=== PATIENT | male | born 1950 | race Caucasian/White ===

== ENCOUNTER 2016-08-01 20:10 | Observation (INO) ==
--- NOTE | 2016-08-01 21:24 | Emergency Department Note ---
START Narrative - START START: For this encounter, I have reviewed the resident, A[employer]LET[employer], or PA documentation, treatment plan, and medical decision making; and I have had face to face time with this patient. 65 yo male presents with concerns of chest pain. Hx of Afib on flecanide but no anticoagulation. +9/10 chest pain, seen [facility] earlier today for same pain. Pt offered admission but he declined. Records received from [facility] which show a negative initial troponin earlier in the day. EKG today shows normal sinus rhythm with a rate of 63 without evidence of STEMI. Patient states his pain returned after leaving [facility] while he was walking. Patient stated the pain was severe and much worse than his usual reflux. No chest pain during my evaluation emergency Department. Patient is comfortable with the plan for admission to the hospital for continuation of care.
[2016-08-01 21:30] LABS: INR 1.1; Prothrombin Time 11.7 Seconds (9.4-12.1)
[2016-08-01 21:33] LABS: Activated Partial Thrombo Time 34.8 Seconds (26.0-36.0)
[2016-08-01 21:39] LABS: BUN/Creatinine Ratio 13 (6-26); Blood Urea Nitrogen 14 mg/dL (8-26); Calcium 9.2 mg/dL (8.6-10.8); Carbon Dioxide 25 mEq/L (19-29); Chloride 107 mEq/L (98-109); Glucose 83 mg/dL (70-99); Osmolality,Calculated 288 (280-300); Potassium 4.2 mEq/L (3.5-4.5); Sodium 139 mEq/L (136-145); eGFR For African Americans > 60 (> 60); eGFR For Non-African Americans > 60 (> 60)
[2016-08-01 21:44] LABS: Basophils % 0.3 %; Eosinophils # 0.1 K/mcL (0.0-0.6); Eosinophils % 1.7 %; Hematocrit 41.6 % (37.5-50.1); Immature Granulocytes % 0.3 % (0-4); Lymphocytes # 2.1 K/mcL (0.6-4.6); Mean Corpuscular HGB Conc 33.7 g/dL (31.6-35.5); Mean Corpuscular Volume 95.2 fL (83.0-100.0); Mean Platelet Volume 10.4 fL (9.4-12.4); Monocytes # 0.5 K/mcL (0.0-1.3); Monocytes % 7.6 %; Neutrophils # 3.5 K/mcL (1.6-8.9); Platelet Count 147 K/mcL (140-400); Red Blood Count 4.37 M/mcL (4.19-5.50); Red Cell Distribution Width 12.8 % (11.5-14.5); Segmented Neutrophils % 56.1 %
[2016-08-01] MEDS ORDERED: Nitroglycerin 0.4 MG TAB.SUBL SL PRN (21:52)
--- NOTE | 2016-08-01 21:59 | Emergency Department Note ---
Disposition Clinical Impression: Chest pain Qualifiers: Chest pain type: unspecified Qualified Code(s): R07.9 - Chest pain, unspecified Disposition: Admitted As Inpatient Condition: Good Chest Pain HPI - General Chief Complaint: ED Chest Pain Stated Complaint: chest pain amy Time Seen by Provider: 08/01/16 21:09 Source: patient Limitations: no limitations - History of Present Illness HPI Narrative: 65-year-old male history of A. fib on antiarrhythmic who presents to the ER with a chief complaint of chest pain. Patient reports this started around 10 AM this morning while he was walking around. He reports a left-sided chest pain with pressure that was 9/10. Patient reports shortness of breath with it. As a history of MS DVT or PE. States he had a heart catheter and a stress test many years ago. He does follow with the general forecaster for his A. fib. He is not on anticoagulation. He reports that he was seen in another facility earlier today had a workup and decided not to be admitted. He reports he was given 2 sublingual nitroglycerin with improvement of his pain. He reports he went home and the pain never went away so he came back for evaluation. No other complaints. Pt complaint: chest pain Onset (ago): hour(s) Time: 10:00 Duration: constant Onset: during exertion Pain Location: left chest Severity: mild Severity scale (1-10): 4 Quality: heaviness Pain Radiation: none Improves with: nitroglycerin Worsens with: nothing Associated symptoms: Reports: dyspnea Treatments prior to arrival chest pain: none - Related Data On Oral Contraceptives: No Home Medications Medication Instructions Recorded Confirmed Atenolol [Tenormin] 12.5 mg PO DAILY 07/16/16 08/01/16 Docusate Sodium [Colace] 100 mg PO DAILY PRN 07/16/16 08/01/16 Flecainide Acetate 150 mg PO BID 07/16/16 08/01/16 Fluticasone Propionate Nasal 50 mcg NS DAILY PRN 07/16/16 08/01/16 [Flonase] Omeprazole 20 mg PO BID PRN 07/16/16 08/01/16 Montelukast [Singulair] 10 mg PO DAILY 08/01/16 08/01/16 Tamsulosin [Flomax] 0.4 mg PO DAILY 08/01/16 08/01/16 Allergies Allergy/AdvReac Type Severity Reaction Status Date / Time No Known Allergies Allergy Verified 07/16/16 11:49 All systems ED: reviewed and negative except as stated. Constitutional: Denies: fever Cardiovascular: Reports: chest pain. Denies: palpitations Respiratory: Reports: dyspnea. Denies: cough, wheezes Gastrointestinal: Denies: abdominal pain, nausea, vomiting, diarrhea Chest Pain PMH - Past Medical History Medical history: Reports: atrial fibrillation, GERD Surgical history: Reports: other Psychiatric history: Reports: no psych history - Social History Smoking Status: Never smoker Alcohol use: Reports: none Drug use: Reports: none Physical Exam - General Limitations: no limitations General appearance: alert, in no apparent distress - Head Head exam: atraumatic, normocephalic, normal inspection - Eye Eye exam: Present: normal appearance, EOMI - ENT ENT exam: normal exam - Neck Neck exam: Present: normal inspection - Chest Chest inspection: Present: normal inspection, symmetric chest wall rise - Respiratory Respiratory exam: Present: normal lung sounds bilaterally - Cardiovascular Cardiovascular exam: Present: regular rate, normal rhythm, normal heart sounds - Abdominal Exam Abdominal exam: Present: soft, Non-Tender. Absent: tenderness - Extremities Exam Extremities exam: Present: normal inspection, full ROM - Expanded Upper Extremity Exam Shoulder exam: Present: normal inspection, full ROM Arm exam: Present: normal inspection, full ROM Elbow exam: Present: normal inspection, full ROM Forearm/Wrist exam: Present: normal inspection, full ROM Hand exam: Present: normal inspection, full ROM - Expanded Lower Extremity Exam Hip/Pelvis exam: Present: normal inspection, full ROM Upper leg exam: Present: normal inspection, full ROM Knee exam: Present: normal inspection, full ROM Lower leg exam: Present: normal inspection, full ROM Ankle exam: Present: normal inspection, full ROM Foot/toe exam: Present: normal inspection, full ROM - Neurological Exam Neurological exam: Present: alert - Psychiatric Psychiatric exam: Present: normal affect, normal mood - Skin Skin exam: Present: warm, dry, intact, normal color Course Course Narrative: Patient seen and examined. Vital signs reviewed. We will get an EKG, chest x- ray as well as labs including troponin. Patient given aspirin and nitroglycerin. Vital Signs Temperature 98.2 F 08/01/16 20:22 Pulse Rate 71 08/01/16 20:22 Respiratory Rate 18 08/01/16 20:22 Blood Pressure 122/78 08/01/16 20:22 O2 Sat by Pulse Oximetry 94 L 08/01/16 20:22 Temperature 98.2 F 08/01/16 20:22 Pulse Rate 54 08/01/16 22:30 Respiratory Rate 16 08/01/16 23:11 Blood Pressure 105/69 08/01/16 23:11 O2 Sat by Pulse Oximetry 99 08/01/16 22:30 Oxygen Delivery Oxygen Delivery Nasal Cannula Chest Pain - MDM Narrative Medical decision making narrative: 65-year-old male presents to the ER due to chest pain. History of A. fib. He reports pain that started this morning. He was seen at another facility and worked up. He did not stay at that time because he was not familiar with that hospital. Patient re-presented here due to continuing pain. EKG is sinus rhythm. Chest x-ray unremarkable. Pain subsided with one sublingual nitroglycerin. Patient given aspirin at prior facility. Patient admitted to the hospitalist service for chest pain workup. - Lab Data Lab results reviewed: Yes I reviewed the patient's lab results. Result diagrams: 08/01/16 21:37 08/01/16 21:20 Lab Results 08/01/16 08/01/16 08/01/16 Range/Units 21:20 21:20 21:20 WBC (4.3-11.1) K/mcL RBC (4.19-5.50) M/mcL Hgb (12.9-16.9) g/dL Hct (37.5-50.1) % MCV (83.0-100.0) fL MCH (28.0-33.3) pg MCHC (31.6-35.5) g/dL RDW (11.5-14.5) % Plt Count (140-400) K/mcL MPV (9.4-12.4) fL Immature Gran % (0-4) % Seg Neutrophils % % Lymphocytes % % Monocytes % % Eosinophils % % Basophils % % Neutrophils # (1.6-8.9) K/mcL Lymphocytes # (0.6-4.6) K/mcL Monocytes # (0.0-1.3) K/mcL Eosinophils # (0.0-0.6) K/mcL Basophils # (0.0-0.2) K/mcL PT 11.7 (9.4-12.1) Seconds INR 1.1 APTT 34.8 (26.0-36.0) Seconds Sodium 139 (136-145) mEq/L Potassium 4.2 (3.5-4.5) mEq/L Chloride 107 (98-109) mEq/L Carbon Dioxide 25 (19-29) mEq/L BUN 14 (8-26) mg/dL Creatinine 1.11 (0.72-1.25) mg/dL Est GFR ( Amer) > 60 (> 60) Est GFR (Non-Af Amer) > 60 (> 60) BUN/Creatinine Ratio 13 (6-26) Glucose 83 (70-99) mg/dL Calculated Osmolality 288 (280-300) Calcium 9.2 (8.6-10.8) mg/dL Troponin I 0.00 (0-0.03) ng/mL 08/01/16 Range/Units 21:37 WBC 6.3 (4.3-11.1) K/mcL RBC 4.37 (4.19-5.50) M/mcL Hgb 14.0 (12.9-16.9) g/dL Hct 41.6 (37.5-50.1) % MCV 95.2 (83.0-100.0) fL MCH 32.0 (28.0-33.3) pg MCHC 33.7 (31.6-35.5) g/dL RDW 12.8 (11.5-14.5) % Plt Count 147 (140-400) K/mcL MPV 10.4 (9.4-12.4) fL Immature Gran % 0.3 (0-4) % Seg Neutrophils % 56.1 % Lymphocytes % 34.0 % Monocytes % 7.6 % Eosinophils % 1.7 % Basophils % 0.3 % Neutrophils # 3.5 (1.6-8.9) K/mcL Lymphocytes # 2.1 (0.6-4.6) K/mcL Monocytes # 0.5 (0.0-1.3) K/mcL Eosinophils # 0.1 (0.0-0.6) K/mcL Basophils # 0.0 (0.0-0.2) K/mcL PT (9.4-12.1) Seconds INR APTT (26.0-36.0) Seconds Sodium (136-145) mEq/L Potassium (3.5-4.5) mEq/L Chloride (98-109) mEq/L Carbon Dioxide (19-29) mEq/L BUN (8-26) mg/dL Creatinine (0.72-1.25) mg/dL Est GFR ( Amer) (> 60) Est GFR (Non-Af Amer) (> 60) BUN/Creatinine Ratio (6-26) Glucose (70-99) mg/dL Calculated Osmolality (280-300) Calcium (8.6-10.8) mg/dL Troponin I (0-0.03) ng/mL - Radiology Data Radiology results reviewed: Yes I reviewed the patient's radiology results. Chest X-Ray 08/01/16 21:12 IMPRESSION: No acute cardiopulmonary abnormality. D/ / Koko Jacob MD / Koko Jacob MD Interpreting Provider: Koko Jacob MD - EKG Data EKG attestation: Yes I reviewed and interpreted this EKG. EKG results narrative: EKG demonstrates normal sinus rhythm with a rate of 63 bpm. Normal axis. NM interval 156 QRS duration [address] elevations or depressions. No acute ischemic findings. Heart Score - Score History: Moderately Suspicious EKG: Normal Age: 45-65 Risk Factors: 1-2 risk factors Troponin: Less than normal limit HEART Score Total: 3 S.B.A.R. - S.B.A.R. Situation: Demographics, MOA Background: Presenting Complaint, Relevant PMH, Meds, & Allergies Assessment: Vital Signs, Course and respsone to treatment, Exam Concerns, Patient/Family Expectation, Pertinant Lab Results, Outstanding Labs Recommendation: Barrier(s) to disposition, Recommendation based on pending studies, treatments, or consults S.B.A.R. Report Given to: Dr. Nelson
[2016-08-01] MEDS ORDERED: Aspirin 81 MG TAB.CHEW PO STA (22:04)
[2016-08-02] MEDS ORDERED: Naloxone 0.4 MG/ML INJ IVP PRN (07:22)
[2016-08-02] MEDS ORDERED: Acetaminophen 325 MG TABLET PO PRN (07:22)
[2016-08-02] MEDS ORDERED: *HR* OxyCODONE Immed Rel 5 MG TABLET PO PRN (07:22)
[2016-08-02] MEDS ORDERED: Ondansetron 4 MG/2 ML VIAL IVP PRN (07:22)
[2016-08-02] MEDS ORDERED: Mag Hydrox/Al Hydrox/Simeth 30 ML UDC PO PRN (07:22)
[2016-08-02] MEDS ORDERED: *HR* Morphine 2 MG/ML SYRINGE IVP PRN (07:22)
[2016-08-02] MEDS ORDERED: MOM Conc 10 ML UD.LIQ PO PRN (07:22)
[2016-08-02] MEDS ORDERED: *HR* Metoprolol 5 MG/5 ML VIAL IVP PRN (07:22)
[2016-08-02] MEDS ORDERED: Fluticasone Propionate Nasal 50 MCG/SPRAY BOTTLE NS PRN (07:28)
[2016-08-02] MEDS ORDERED: 0.9 % Sodium Chloride 1,000 ML IVC SCH (07:30)
[2016-08-02] MEDS ORDERED: *HR* Enoxaparin 40 MG/0.4 ML SYRINGE SQ ONE (07:31)
[2016-08-02] MEDS ORDERED: Benzonatate 100 MG CAPSULE PO PRN (07:31)
[2016-08-02] MEDS ORDERED: Ipratropium/Albuterol Neb 3 ML IH PRN (07:31)
--- NOTE | 2016-08-02 07:39 | Internal Med History&Physical ---
Date of Encounter: 08/02/16 Time of Encounter: 05:00 Assessment and Plan (1) Chest pain, rule out acute myocardial infarction Current visit: Yes Status: Acute . (2) Chest pain with moderate risk of acute coronary syndrome Current visit: Yes Status: Acute . (3) Dyspepsia and disorder of function of stomach Current visit: Yes Status: Acute . (4) Belching symptom Current visit: Yes Status: Acute . (5) Gastroesophageal reflux disease Current visit: Yes Status: Chronic . Qualifiers: Esophagitis presence: esophagitis presence not specified Qualified Code(s) : K21.9 - Gastro-esophageal reflux disease without esophagitis (6) Intolerance to fatty food Current visit: Yes Status: Acute . (7) Chronic a-fib Current visit: Yes Status: Acute . (8) Encounter for monitoring flecainide therapy Current visit: Yes Status: Acute . Internal Medicine - H&P: HPI Chief complaint: Chest pain. Difficulty breathing. Admitted From: Emergency Dept Plans for Post Hospital Care: Home History of present illness: Mr. Brandon is a 65 year old male with history of chronic paroxysmal atrial fibrillation currently on flecainide therapy (not on chr A/C), history of SVT, h /o lower GI bleed, h/o colonic polyps, allergic rhinitis, BPH/prostatism, RAD, GERD, osteoarthritis, obesity, nonsmoker is admitted to [facility] via the emergency department when he presents with reports of intermittent chest pain x12 hour period. He began at approximately 10 AM while he was up and about walking around. Initially he felt it to be left-sided chest. Most of pain has also focused in the right chest and upper back area. He experienced some shortness of breath. He denies any previous history or knowledge of CAD/PR/DVT/PE. Has underwent left heart catheterization and stress testing in the past reportedly benign. When present pain described as a 9/10 severity. Midsubsternal. Constant pressure-like fullness radiating into left upper back/shoulder blade, nausea without diaphoresis, epigastric bloating with belching discomfort. Severity of pain somewhat relieved following eructation. She does acknowledge she fatty food intolerance. Symptoms began sometime after a breakfast at [employer] with . Patient first went to the [facility] for evaluation. Trending of cardiac injury panel EKG laboratory studies were performed and initially benign. Patient was offered admission to complete standard rule out protocols for ACS/UA but he declined. EKG was read as normal sinus rhythm at a rate of 63 bpm without evidence of STEMI. Shortly after leaving [place] his pain now once again returned gradually escalating while he was walking. He acknowledges that this pain especially with the fullness in the belching is more severe than he has experienced in the past with his reflux. He did experience mild discomfort the day prior and took an extra omeprazole. That seemed to help but did not resolve his symptoms. He clearly felt relief following 3 sublingual nitroglycerin given in the [facility]. He also received full dose aspirin therapy. At the time of presentation to [facility] was pain-free. 2-D echo obtained in November 2015 noted a LVEF of 65% with indeterminant diastolic function moderate dilated left atrium but no significant evidence of wall motion abnormality, valvular dysfunction or pulmonary hypertension. Findings in the ED noted a temperature of 98.2 pulse was 54-71 regular in rate and rhythm. Respirations 18 BP 1056-122/69-78. O2 saturation 94-99% on 2 L per nasal cannula. EKG demonstrated normal sinus rhythm with no acute ischemic changes. PT INR PTT metabolic profile and CBC with differential was normal. Troponin was 0.00. Chest x-ray showed no acute or active cardiopulmonary process. Preliminary impressions suggest typical and atypical chest pain complaints patient with positive risk factors for vascular disease. Patient denies sensation of arrhythmias as part of his symptom complex. Part of his symptoms suggest a GI relationship likely acid peptic disease with GERD and possible esophageal spasm. Also possible gallbladder dysfunction with fatty food intolerance gaseous bloating and belching discomfort. Neither of these issues have been evaluated in recent time. Workup and treatments will progress comprehensively. The patient was visited and interviewed and examined. Cumulative laboratory and radiographic data base will be considered and discussed. Pertinent ancillary medical records including ECW and PCI documentation when available was reviewed and considered. Given the patient's presenting concerns, past medical history, clinical findings and symptoms, he is admitted at this time will undergo further evaluation and disposition. Orders were written as per Computerized physician reordering clerk system.......................................................................... .................... Consultative opinion will be sought as clinical circumstances justify. Pain management needs will be addressed. Laboratory /radiographic data base will be updated as appropriate. Studies include: cpk, pt/inr, aptt, cardiac injury panel, BNP, UA, metabolic and hematologic panel, magnesium, phosphorus, ionized calcium, thyroid panel, lipid profile, A1c, C-peptide, CRP, sedimentation rate, blood gas, lactic acid, amylase, lipase, serologies, etc. Precautions: Aspiration, fall, delirium protocol/surveillance initiated. Telemetry with continuous hemodynamic monitoring and pulse oximetry initiated. Empiric antibiotic coverage: pending diagnostic/culture data. Special studies: CT chest/abdomen, US gallbladder, chest x-ray, telemetry, EKG, 2D echo. Pulmonary toilet: Incentive spirometry. PRN: aerosol bronchodilator, mucolytic, antitussive. Supplemental oxygen. Corticosteroid therapyPRN. CPAP/BiPAP supplemental oxygen deliveryPRN. Aerosol Mucomyst therapyPRN. Fluid and electrolyte repletion efforts will proceed. Careful attention to fluid balance and renal recovery will be emphasized. Avoidance of nephrotoxic exposure and adverse drug drug interaction in the setting of impaired renal function will be monitored closely. Acute coronary syndrome protocol/surveillance initiated. Includes: Beta-Penny , INNA inhibitor, statin, aspirin. NitratesPRN . MorphinePRN. Lovenox SQ. Supplemental oxygen. Flecainide therapy continued. DVT and PUD prophylaxis initiated: PPI therapy, intermittent pneumatic cuffs/ TEDs. Subcutaneous heparin/Lovenox. Early ambulation will be encouraged. Immunization updates recommended. Influenza and pneumococcal vaccinations as part of ongoing preventative healthcare recommendations strongly recommended. Smoking cessation counseling briefly addressed. Patient is a nonsmoker. Advanced care directive discussion briefly addressed. Patient does not declare any healthcare restrictions at this time. Cardiovascular risk appraisal and cardiovascular risk reduction efforts will be emphasized. Physical /occupational therapy may be counseled to evaluate patient's function capacity and progressive mobility if circumstances justify. Nutrition/dietary education counseling may be considered as circumstances justify. Outpatient medication schedules will be reviewed, confirmed and facilitated as appropriate. Reconciliation of home treatments including adjustments, substitutions and reintroduction into the treatment regimen will address necessary maintenance therapies for chronic pre-existing medical conditions. Plan of care has been reviewed and discussed in detail with the patient. Questions addressed. Hospital course dictated by clinical findings, treatment response and potential consultative interventions. Patient is a risk for further acute clinical decline due to his findings, chief complaints and comorbid conditions. Condition is serious. Prognosis is guarded. CODE STATUS is full. Past Med Surg Social Fam HX - Past Medical History Source: old records reviewed Medical history: arthritis, atrial fibrillation, GERD, GI bleed (History of lower GI bleed. History of colonic polyps.), renal disease (BPH./Prostatism), SVT, other (Allergic rhinitis.) Psychiatric history: no psych history - Past Surgical History Surgical History: other - Social History Smoking Status: Never smoker Smokeless Tobacco Status: No Alcohol use: none Drug use: none Occupational status: employed Current living situation: Home, With Family Activity Level: Independent ambulation, Mostly sedentary Recent Out of Country Travel Within the Last 8 Weeks: No Exposure or Possible Exposure to Illness During Travel: No - Family History Mother Hx Family Cardiac Disorders: Yes (CHF) Sister Hx Family Cardiac Disorders: Yes (PACER/AFIB) Father Living Status: Age at : 76 Hx Family Cardiac Disorders: Yes (PR) Internal Medicine - H&P: Meds Atenolol [Tenormin] 12.5 mg PO DAILY 07/16/16 [History] Docusate Sodium [Colace] 100 mg PO DAILY PRN 07/16/16 [History] Flecainide Acetate 150 mg PO BID 07/16/16 [History] Fluticasone Propionate Nasal [Flonase] 50 mcg NS DAILY PRN 07/16/16 [History] Omeprazole 20 mg PO BID PRN 07/16/16 [History] Montelukast [Singulair] 10 mg PO DAILY 08/01/16 [History] Tamsulosin [Flomax] 0.4 mg PO DAILY 08/01/16 [History] Allergies No Known Allergies Allergy (Verified 07/16/16 11:49) All Systems PM: A 10-system review of systems was performed and is negative for pertinent findings except as documented above in the HPI. Allergies Allergy/AdvReac Type Severity Reaction Status Date / Time No Known Allergies Allergy Verified 07/16/16 11:49 Patient Problems (Last Updated 08/02/16 @ 07:38 by Cruzito Sauceda MD) Chest pain (Acute Medical) R07.9 Belching symptom (Acute Medical) R14.2 Chest pain with moderate risk of acute coronary syndrome (Acute Medical) R07.9 Chest pain, rule out acute myocardial infarction (Acute Medical) R07.9 Chronic a-fib (Acute Medical) I48.2 Dyspepsia and disorder of function of stomach (Acute Medical) K31.9, R10.13 Encounter for monitoring flecainide therapy (Acute Medical) Z51.81, Z79.899 Gastroesophageal reflux disease (Acute Medical) K21.9 Intolerance to fatty food (Acute Medical) K90.49 - Constitutional Constitutional: as per HPI, no chills, no fever(s), no night sweats - EENT Eyes: as per HPI, no change in vision, no discharge, no pain, no photophobia Ears: as per HPI, no ear discharge, no ear pain, no tinnitus Nose, mouth and throat: as per HPI, no dysphagia, no nasal discharge, no neck pain, no sore throat - Cardiovascular Cardiovascular ROS IM: as per HPI, chest pain, dyspnea, lightheadedness, no diaphoresis, no dyspnea on exertion, no edema, no palpitations, no syncope - Respiratory Respiratory: as per HPI, no cough, no dyspnea, no wheezing, no excessive phlegm production - Gastrointestinal Gastrointestinal: as per HPI, abdominal pain, belching, bloating, cramping, dyspepsia, heartburn, no coffee ground emesis, no constipation, no diarrhea, no dysphagia, no hematemesis, no hematochezia, no melena, no nausea, no vomiting - Genitourinary Genitourinary ROS male: as per HPI - Musculoskeletal Musculoskeletal ROS IM: as per HPI, no numbness, no tingling - Integumentary Integumentary IM: as per HPI, no rash, no unusual bruising - Neurological Neurological ROS: as per HPI, no confusion, no convulsions, no focal weakness, no numbness, no tingling, no tremor(s) - Psychiatric Psychiatric: as per HPI - Endocrine Endocrine IM: as per HPI - Hematologic/Lymphatic Hematologic/Lymphatic: as per HPI, no easy bruising - Allergic/Immunologic Allergic/Immunologic: as per HPI - Constitutional Vitals: Temp Pulse Resp BP Pulse Ox 98.2 F 51 16 104/68 94 L 08/02/16 07:22 08/02/16 07:22 08/02/16 07:22 08/02/16 07:22 08/02/16 07:22 Vital Signs Temp Pulse Resp BP Pulse Ox 08/02/16 07:22 98.2 F 51 16 104/68 94 L 08/02/16 05:00 98.4 F 67 16 93/56 95 08/01/16 23:57 97.9 F 51 16 113/71 96 08/01/16 23:11 16 105/69 08/01/16 22:30 54 16 98/65 99 08/01/16 22:00 55 16 106/71 99 08/01/16 21:30 53 16 122/71 99 08/01/16 21:19 99 08/01/16 20:22 98.2 F 71 18 122/78 94 L Intake and Output 08/01/16 08/01/16 08/02/16 15:59 23:59 07:59 Other: Weight 92.986 kg 97.341 kg Patient Weight 08/02/16 23:59 Weight 97.341 kg General appearance: Present: cooperative, A&O X 3, pleasant, no acute distress, obese, answers questions appropriately - Head Head exam: Present: atraumatic, normocephalic - Eye Eye exam: Present: EOMI, PERRL, conjuntiva pink, sclera anicteric Pupils: Present: normal accommodation, PERRL - ENT ENT exam: Present: mucous membranes moist, normal oropharynx - Neck Neck exam general surgery: Present: full ROM, supple, trachea midline. Absent: lymphadenopathy - Respiratory Respiratory exam: Present: decreased breath sounds, CTAB. Absent: accessory muscle use, chest wall tenderness, rales, rhonchi, wheezes - Cardiovascular Cardiovascular exam: Present: distant heart sounds, RRR, +S1, +S2. Absent: diastolic murmur, gallop, rubs, systolic murmur - GI/Abdominal GI/Abdominal exam: Present: distended, normal bowel sounds, soft, no peritoneal signs. Absent: mass, tenderness - Extremities Exam Extremities exam: Present: full ROM, warm, radial pulses palpable and symetrical. Absent: calf tenderness, cyanotic, pedal edema - Neurological Exam Neurological exam: Present: alert, CN II-XII intact, oriented X3, no focal deficits. Absent: pronater drift, facial droop, speech deficit - Psychiatric Psychiatric exam: Present: normal affect, normal mood - Skin Skin exam: Present: dry, intact, warm. Absent: petechiae, rash, urticaria, vesicles Internal Med - H&P Results - Labs CBC & Chem 7: 08/01/16 21:37 08/01/16 21:20 Labs: Short CBC 08/01/16 Range/Units 21:37 WBC 6.3 (4.3-11.1) K/mcL Hgb 14.0 (12.9-16.9) g/dL Hct 41.6 (37.5-50.1) % Plt Count 147 (140-400) K/mcL Neutrophils # 3.5 (1.6-8.9) K/mcL BMP 08/01/16 Range/Units 21:20 Sodium 139 (136-145) mEq/L Potassium 4.2 (3.5-4.5) mEq/L Chloride 107 (98-109) mEq/L Carbon Dioxide 25 (19-29) mEq/L BUN 14 (8-26) mg/dL Creatinine 1.11 (0.72-1.25) mg/dL Glucose 83 (70-99) mg/dL Calcium 9.2 (8.6-10.8) mg/dL Cardiac Enzymes 08/01/16 Range/Units 21:20 Troponin I 0.00 (0-0.03) ng/mL Laboratory Last Values WBC 6.3 K/mcL (4.3-11.1) 08/01/16 21:37 RBC 4.37 M/mcL (4.19-5.50) 08/01/16 21:37 Hgb 14.0 g/dL (12.9-16.9) 08/01/16 21:37 Hct 41.6 % (37.5-50.1) 08/01/16 21:37 MCV 95.2 fL (83.0-100.0) 08/01/16 21:37 MCH 32.0 pg (28.0-33.3) 08/01/16 21:37 MCHC 33.7 g/dL (31.6-35.5) 08/01/16 21:37 RDW 12.8 % (11.5-14.5) 08/01/16 21:37 Plt Count 147 K/mcL (140-400) 08/01/16 21:37 MPV 10.4 fL (9.4-12.4) 08/01/16 21:37 Immature Gran % 0.3 % (0-4) 08/01/16 21:37 Seg Neutrophils % 56.1 % 08/01/16 21:37 Lymphocytes % 34.0 % 08/01/16 21:37 Monocytes % 7.6 % 08/01/16 21: Eosinophils % 1.7 % 08/01/16 21:37 Basophils % 0.3 % 08/01/16 21:37 Neutrophils # 3.5 K/mcL (1.6-8.9) 08/01/16 21:37 Lymphocytes # 2.1 K/mcL (0.6-4.6) 08/01/16 21: Monocytes # 0.5 K/mcL (0.0-1.3) 08/01/16 21:37 Eosinophils # 0.1 K/mcL (0.0-0.6) 08/01/16 21:37 Basophils # 0.0 K/mcL (0.0-0.2) 08/01/16 21:37 PT 11.7 Seconds (9.4-12.1) 08/01/16 21:20 INR 1.1 08/01/16 21:20 APTT 34.8 Seconds (26.0-36.0) 08/01/16 21:20 Sodium 139 mEq/L (136-145) 08/01/16 21:20 Potassium 4.2 mEq/L (3.5-4.5) 08/01/16 21:20 Chloride 107 mEq/L (98-109) 08/01/16 21:20 Carbon Dioxide 25 mEq/L (19-29) 08/01/16 21:20 BUN 14 mg/dL (8-26) 08/01/16 21:20 Creatinine 1.11 mg/dL (0.72-1.25) 08/01/16 21:20 Est GFR ( Amer) > 60 (> 60) 08/01/16 21:20 Est GFR (Non-Af Amer) > 60 (> 60) 08/01/16 21:20 BUN/Creatinine Ratio 13 (6-26) 08/01/16 21:20 Glucose 83 mg/dL (70-99) 08/01/16 21:20 Calculated Osmolality 288 (280-300) 08/01/16 21:20 Calcium 9.2 mg/dL (8.6-10.8) 08/01/16 21:20 Troponin I 0.00 ng/mL (0-0.03) 08/01/16 21:20 - Impressions Chest X-Ray 08/01/16 21:12 IMPRESSION: No acute cardiopulmonary abnormality. D/ / Koko Jacob MD / Koko Jacob MD Interpreting Provider: Koko Jacob MD - Attending Attestation Allergies No Known Allergies Allergy (Verified 07/16/16 11:49) Home Medications Medication Instructions Recorded Confirmed Type Atenolol [Tenormin] 12.5 mg PO DAILY 07/16/16 08/01/16 History Docusate Sodium [Colace] 100 mg PO DAILY PRN 07/16/16 08/01/16 History Flecainide Acetate 150 mg PO BID 07/16/16 08/01/16 History Fluticasone Propionate Nasal 50 mcg NS DAILY PRN 07/16/16 08/01/16 History [Flonase] Omeprazole 20 mg PO BID PRN 07/16/16 08/01/16 History Montelukast [Singulair] 10 mg PO DAILY 08/01/16 08/01/16 History Tamsulosin [Flomax] 0.4 mg PO DAILY 08/01/16 08/01/16 History I & O 07/30/16 07/31/16 08/01/16 08/02/16 23:59 23:59 23:59 23:59 Weight 92.986 kg 97.341 kg Medications Acetaminophen (Tylenol) 650 mg PO Q6HR PRN PRN Reason: Mild Pain (1-3) Stop: 02/01/17 07:23 Al Hydrox/Mg Hydrox/Simethicone (Maalox) 15 ml PO Q6HR PRN PRN Reason: Dyspepsia Stop: 02/01/17 07:23 Albuterol/Ipratropium (Duoneb) 3 ml IH [id number] PRN; Protocol PRN Reason: Shortness Of Breath/Wheezing Stop: 02/01/17 07:32 Aspirin (Aspirin) 81 mg PO DAILY [facility] Stop: 02/01/17 09:01 Atenolol (Tenormin) 12.5 mg PO DAILY [facility] Stop: 02/01/17 09:01 Benzonatate (Tessalon) 200 mg PO TID PRN PRN Reason: Cough Stop: 02/01/17 07:32 Docusate Sodium (Colace) 100 mg PO BID [facility] Stop: 02/01/17 09:01 Enoxaparin Sodium (Lovenox) 40 mg SQ ONCE ONE PRN Reason: Protocol Stop: 08/02/16 07:32 Enoxaparin Sodium (Lovenox) 40 mg SQ 0600 YANE PRN Reason: Protocol Stop: 02/02/17 06:01 Fluticasone Propionate (Flonase) 50 mcg NS DAILY PRN; Protocol PRN Reason: Allergy Symptoms Stop: 02/01/17 07:29 Guaifenesin (Mucinex) 600 mg PO BID [facility] Stop: 02/01/17 09:01 Sodium Chloride (0.9 % Sodium Chloride) 1,000 mls @ 50 mls/hr IVC .Q20H [facility] Stop: 02/01/17 07:31 Lisinopril (Zestril) 2.5 mg PO DAILY [facility] Stop: 02/01/17 09:01 Magnesium Hydroxide (Milk Of Magnesia Conc) 10 ml PO DAILY PRN PRN Reason: Indigestion Stop: 02/01/17 07:23 Metoprolol Tartrate (Lopressor) 5 mg IVP Q6HR PRN PRN Reason: SEE COMMENTS Stop: 02/01/17 07:23 Montelukast Sodium (Singulair) 10 mg PO DAILY [facility] Stop: 02/01/17 09:01 Morphine Sulfate (Morphine Sulfate) 2 mg IVP Q2H PRN PRN Reason: Severe Pain (7-10) Stop: 02/01/17 07:23 Naloxone HCl (Narcan) 0.4 mg IVP Q2MIN PRN PRN Reason: Opioid Reversal Stop: 02/01/17 07:23 Nitroglycerin (Nitroglycerin) 0.4 mg SL Q5MIN PRN PRN Reason: Chest Pain Stop: 01/31/17 21:53 Last Admin: 08/01/16 22:16 Dose: 0.4 mg Non-Formulary Medication (Flecainide Acetate [Flecainide Acetate]) 150 mg PO BID YANE Stop: 02/01/17 09:01 Ondansetron HCl (Zofran) 4 mg IVP Q8HR PRN PRN Reason: Nausea And Vomiting Stop: 02/01/17 07:23 Oxycodone HCl (Roxicodone) 10 mg PO Q6HR PRN PRN Reason: Moderate Pain (4-6) Stop: 02/01/17 07:23 Pantoprazole Sodium (Protonix) 40 mg IVP BID YANE Stop: 02/01/17 09:01 Rosuvastatin Calcium (Crestor) 20 mg PO HS YANE Stop: 02/01/17 21:01 Sucralfate (Carafate) 1 gm PO 0730,1630 YANE Stop: 02/01/17 16:31 Tamsulosin HCl (Flomax) 0.4 mg PO DAILY YANE PRN Reason: Protocol Stop: 02/01/17 09:01 Discontinued Medications Aspirin (Aspirin) 324 mg PO NOW STA Stop: 08/01/16 22:05 Last Admin: 08/01/16 22:17 Dose: Nursing Notes 08/01/16 22:23 Nurse Note by Juany Rogers Pt states that after received 1 nitro he no longer has chest pain. Initialized on 08/01/16 22:23 - END OF NOTE 08/01/16 22:14 Transport Report by Amanda Montiel Date: 08/01/16 Transport Method: Ambulatory No Known Allergies Allergy (Verified 07/16/16 11:49) Resuscitation Status 08/01/16 20:26 ECG 12 lead ECG [ECG] Stat Mode Of Transportation: Ambulatory Reason For Exam: chest pain Order Doctor: William Sherman Exam Performed At:: [facility] 08/01/16 21:12 XR chest 1V portable [XR] Stat Mode Of Transportation: Ambulatory Reason For Exam: chest pain Order Doctor: Brijesh Sandra Exam Performed At:: [facility] Oxygen: 2 Mental Status: Fall Risk: Isolation: Nurse Required for Transport: No ___ Yes Limb Restrictions: No ___ Yes Behavioral issue/Risk for Elopement: No ___ Yes Telemetry Room Notification: Destination: MRI XRAY STRESS ULTRASOUND CT DIALYSIS ENDO OTHER: Depart Time: Nurse: Transporter: Arrive Time: Received by: ___ Return Time: Nurse: Transporter: ] Initialized on 08/01/16 22:14 - END OF NOTE Orders 08/01/16 20:26 ECG 12 lead ECG [ECG] Stat Mode Of Transportation: Ambulatory Reason For Exam: chest pain Order Doctor: William Sherman Exam Performed At:: [facility] 08/01/16 20:27 12 lead ECG assessment [RC] NOW 08/01/16 21:12 XR chest 1V portable [XR] Stat Mode Of Transportation: Ambulatory Reason For Exam: chest pain Order Doctor: Brijesh Sandra Exam Performed At:: [facility] 08/01/16 21:20 Basic Metabolic Panel Stat Comment: Specimen: Send someone from the department to collect PTT [Activated Partial Thrombo Time] [COAG] Stat Comment: Specimen: Send someone from the department to collect Prothrombin Time INR [COAG] Stat Comment: Specimen: Send someone from the department to collect Troponin I Stat Comment: Specimen: Send someone from the department to collect 08/01/16 21:37 Complete Blood Count [HEME] Stat Comment: Specimen: Send someone from the department to collect 08/01/16 21:[address] Stat Comment: Reason for Visit: chest pain 08/01/16 21:52 Nitroglycerin 0.4 mg SL Q5MIN PRN 08/01/16 22:04 Aspirin 324 mg PO NOW STA 08/02/16 07:22 Cardiac monitoring [RC] .ONCE Continuous pulse oximetry [RC] .ONCE Comment: Oxygen via nasal cannula Nasal Cannula 2 lpm Comment: Peripheral IV [RC] CONT Vital Signs Assessment [RC] Q4H Consult to Nurse Navigator [CONS] Routine Comment: Hepatic Panel Stat Hgb A1C Routine Specimen: Send someone from the department to collect Comment: Lipid Panel Stat Specimen: Send someone from the department to collect Comment: Magnesium Stat Specimen: Send someone from the department to collect Comment: Phosphorous Stat Specimen: Send someone from the department to collect Comment: Thyroid Stimulating Hormone Stat Urinalysis reflex Microscopic [URIN] Stat Specimen: Send someone from the department to collect Comment: Acetaminophen [Tylenol] 650 mg PO Q6HR PRN MOM Conc [Milk of Magnesia Conc] 10 ml PO DAILY PRN Mag Hydrox/Al Hydrox/Simeth [Maalox] 15 ml PO Q6HR PRN Metoprolol [Lopressor] 5 mg IVP Q6HR PRN Morphine [Morphine Sulfate] 2 mg IVP Q2H PRN Naloxone [Narcan] 0.4 mg IVP Q2MIN PRN Ondansetron [Zofran] 4 mg IVP Q8HR PRN OxyCODONE Immed Rel [Roxicodone] 10 mg PO Q6HR PRN Resuscitation Status: Active [RES] Routine Resuscitation Status: Full Code Comment: ECG 12 lead ECG [ECG] Stat Mode Of Transportation: Ambulatory Reason For Exam: Myocardial Infarction Exam Performed At:: [facility] EV echocardiogram Routine Mode Of Transportation: Ambulatory Reason For Exam: ACS Exam Performed At:: [facility] 08/02/16 07:23 Placement to Observation Routine Physician Instructions: Reason for Visit: Chest pain. Difficulty breathing. Abdominal pain/ gaseousness. Is VTE Prophylaxis Indicated?: Yes RT has an order or consult [RC] NOW 08/02/16 07:24 Bed rest [RC] .CONT Physician Instructions: Bed rest w/bathroom privileges [RC] .PRN Cardiac Monitoring Med/Surg [RC] .CONT Telemetry Reason: ACS/CP Continuous pulse oximetry [RC] CONT Comment: Measure intake and output [RC] QSHIFT Measure weight [RC] DAILY Oxygen via nasal cannula Nasal Cannula 2 lpm Comment: Titrate O2 to main O2 sat greater than: 92% 08/02/16 07:28 12 lead ECG assessment [RC] NOW Fluticasone Propionate Nasal [Flonase] 50 mcg NS DAILY PRN 08/02/16 07:30 Troponin I Q6H Specimen: Send someone from the department to collect Comment: 0.9 % Sodium Chloride 1,000 ml IVC 50 mls/hr 08/02/16 07:31 Aspiration precautions [RC] .CONTINUOUS Falls precautions (Adiel-Green [RC] ONCE Incentive Spirometry [RC] .6 TIMES PER HR WHILE AWAKE LEEANN Hose [Apply anti-embolic stockings] [RC] .NOW US gall bladder [US] Routine Mode Of Transportation: Ambulatory Reason For Exam: Pain with gaseous bloating. Comment: includes liver Order Doctor: Cruzito Sauceda Exam Performed At:: [facility] C-Reactive Protein Routine Specimen: Send someone from the department to collect Comment: Ionized Calcium Routine Specimen: Send someone from the department to collect Comment: Lactic Acid ([facility] Only) Routine Specimen: Send someone from the department to collect Comment: Venous Blood Gas Routine Specimen: Send someone from the department to collect Comment: Benzonatate [Tessalon] 200 mg PO TID PRN Enoxaparin [Lovenox] 40 mg SQ ONCE ONE Ipratropium/Albuterol Neb [Duoneb] 3 ml IH [id number] PRN 08/02/16 09:00 Aspirin 81 mg PO DAILY Atenolol [Tenormin] 12.5 mg PO DAILY Docusate [Colace] 100 mg PO BID Flecainide Acetate [Flecainide Acetate] 150 mg PO BID How will this medication be supplied?: Pharmacy to Subsitute GuaiFENesin ER [Mucinex] 600 mg PO BID Lisinopril [Zestril] 2.5 mg PO DAILY Montelukast [Singulair] 10 mg PO DAILY Pantoprazole [Protonix] 40 mg IVP BID Tamsulosin [Flomax] 0.4 mg PO DAILY 08/02/16 13:30 Troponin I Q6H Specimen: Send someone from the department to collect Comment: 08/02/16 16:30 Sucralfate [Carafate] 1 gm PO 0730,1630 08/02/16 19:30 Troponin I Q6H Specimen: Send someone from the department to collect Comment: 08/02/16 21:00 Rosuvastatin [Crestor] 20 mg PO HS 08/02/16 Breakfast Cardiac Diet Diet Modifications: 08/03/16 04:00 B-Type Natriuretic Peptide AM 0400 Specimen: Send someone from the department to collect Comment: 08/03/16 06:00 Enoxaparin [Lovenox] 40 mg SQ 0600 08/03/16 07:00 ECG 12 lead ECG [ECG] Routine Mode Of Transportation: Ambulatory Reason For Exam: Myocardial Infarction Exam Performed At:: [facility] Patient Problems (Last Updated 08/01/16 @ 22:58 by Brijesh Sandra DO) Chest pain (Acute) Vital Signs Temp Pulse Resp BP Pulse Ox 08/02/16 07:22 98.2 F 51 16 104/68 94 L 08/02/16 05:00 98.4 F 67 16 93/56 95 08/01/16 23:57 97.9 F 51 16 113/71 96 08/01/16 23:11 16 105/69 08/01/16 22:30 54 16 98/65 99 08/01/16 22:00 55 16 106/71 99 08/01/16 21:30 53 16 122/71 99 08/01/16 21:19 99 08/01/16 20:22 98.2 F 71 18 122/78 94 L Laboratory Results 08/01/16 08/01/16 08/01/16 Range/Units 21:20 21:20 21:20 WBC (4.3-11.1) K/mcL RBC (4.19-5.50) M/mcL Hgb (12.9-16.9) g/dL Hct (37.5-50.1) % MCV (83.0-100.0) fL MCH (28.0-33.3) pg MCHC (31.6-35.5) g/dL RDW (11.5-14.5) % Plt Count (140-400) K/mcL MPV (9.4-12.4) fL Immature Gran % (0-4) % Seg Neutrophils % % Lymphocytes % % Monocytes % % Eosinophils % % Basophils % % Neutrophils # (1.6-8.9) K/mcL Lymphocytes # (0.6-4.6) K/mcL Monocytes # (0.0-1.3) K/mcL Eosinophils # (0.0-0.6) K/mcL Basophils # (0.0-0.2) K/mcL PT 11.7 (9.4-12.1) Seconds INR 1.1 APTT 34.8 (26.0-36.0) Seconds Sodium 139 (136-145) mEq/L Potassium 4.2 (3.5-4.5) mEq/L Chloride 107 (98-109) mEq/L Carbon Dioxide 25 (19-29) mEq/L BUN 14 (8-26) mg/dL Creatinine 1.11 (0.72-1.25) mg/dL Est GFR ( Amer) > 60 (> 60) Est GFR (Non-Af Amer) > 60 (> 60) BUN/Creatinine Ratio 13 (6-26) Glucose 83 (70-99) mg/dL Calculated Osmolality 288 (280-300) Calcium 9.2 (8.6-10.8) mg/dL Troponin I 0.00 (0-0.03) ng/mL 08/01/16 Range/Units 21:37 WBC 6.3 (4.3-11.1) K/mcL RBC 4.37 (4.19-5.50) M/mcL Hgb 14.0 (12.9-16.9) g/dL Hct 41.6 (37.5-50.1) % MCV 95.2 (83.0-100.0) fL MCH 32.0 (28.0-33.3) pg MCHC 33.7 (31.6-35.5) g/dL RDW 12.8 (11.5-14.5) % Plt Count 147 (140-400) K/mcL MPV 10.4 (9.4-12.4) fL Immature Gran % 0.3 (0-4) % Seg Neutrophils % 56.1 % Lymphocytes % 34.0 % Monocytes % 7.6 % Eosinophils % 1.7 % Basophils % 0.3 % Neutrophils # 3.5 (1.6-8.9) K/mcL Lymphocytes # 2.1 (0.6-4.6) K/mcL Monocytes # 0.5 (0.0-1.3) K/mcL Eosinophils # 0.1 (0.0-0.6) K/mcL Basophils # 0.0 (0.0-0.2) K/mcL PT (9.4-12.1) Seconds INR APTT (26.0-36.0) Seconds Sodium (136-145) mEq/L Potassium (3.5-4.5) mEq/L Chloride (98-109) mEq/L Carbon Dioxide (19-29) mEq/L BUN (8-26) mg/dL Creatinine (0.72-1.25) mg/dL Est GFR ( Amer) (> 60) Est GFR (Non-Af Amer) (> 60) BUN/Creatinine Ratio (6-26) Glucose (70-99) mg/dL Calculated Osmolality (280-300) Calcium (8.6-10.8) mg/dL Troponin I (0-0.03) ng/mL Assessments/Treatments 12 lead ECG assessment Start: 08/01/16 20: 22 Freq: Status: Complete Document 08/01/16 20:24 SLA (Rec: 08/01/16 20:27 SLA [id number]) EKG Time EKG Completed 20:24 EKG performed by beto landry EKG shown to and signed by dr. sherman Cardiac Monitoring Med/Surg Start: 08/02/16 04: 17 Freq: Status: Active Document 08/02/16 03:55 MRB (Rec: 08/02/16 04:18 MRB [id number]) Cardiac Monitoring Monitor Number [id number] Strip placed in Chart Yes History Reviewed Yes Memory Cleared No Alarms/Limits HR Alarm 110/40 Heart Rate 59 EKG Method Telemetry Rhythm Sinus Rhythm TN Interval 0.14 QRS Interval 0.03 QT Interval 0.38 Cardiac monitoring Start: 08/01/16 20: 22 Freq: Status: Complete Document 08/01/16 21:19 DESI (Rec: 08/01/16 21:19 [facility] [id number]) Cardiac Monitoring Heart Rate 57 ED Chest Pain Assessment Start: 08/01/16 20: 22 Freq: Status: Complete Document 08/01/16 21:19 DESI (Rec: 08/01/16 21:19 [facility] [id number]) Chest Pain Duration Constant Onset this am Location Left Chest Right Chest Radiation Right Upper Extremity Back Improves With Nitroglycerin Associated Symptoms Dyspnea Level Of Consciousness Awake Alert Appropriate Patient Orientation Person Place Time Name Age Date of Day of Month Day of Week Month Year Time of Day Respiratory Depth Normal Respiratory Effort Normal for Patient Spontaneous Non-Labored Respiratory Pattern Regular Oxygen Delivery Method Nasal Cannula Anterior & Posterior Bilateral Throughout Breath Sounds Clear Cough Description None Nausea/Vomiting Presence None Hx PR No Hx Angina No Hx Congestive Heart Failure No Hx Coronary Artery Bypass Graft No Hx Coronary Stent No Hx Cardiac Arrhythmia Yes Hx AICD No Hx Pacemaker No Hx Deep Vein Thrombosis No Hx Clotting Problems No Hx Peripheral Vascular Disease No Hx Other Cardiac Disorders No Hx Stroke No Hx Diabetes Mellitus Type 1 No Hx Diabetes Mellitus Type 2 No Hx Recent Surgeries No Hx Recent Childbirth No Hx Recreational Drug Use No Hx Substance Use No ED Comment Pt states that he has had chest pain all day. Pt states that he was seen at [facility] this morning and recieved nitro, ekg and lab work. Pt states that the nitro relieved his chest pain and they wanted him to stay but he wanted to go home. Pt states that he returned to the er due to his chest pain not going away. ED Discharge Assessment Start: 08/01/16 20: 22 Freq: Status: Active Document 08/01/16 23:11 DESI (Rec: 08/01/16 23:11 [facility] [id number]) ED Discharge Assessment ED Discharge Disposition Admitted Med Rec/Patient Pharmacy Completed? Yes Admitted to 3B Bed assigned 14 Transported by health care sanitary technician Transported with monitor oxygen IV pulse oximetry Report given to Nurse Care transferred to (name/credentials) DEEPALI Cavanaugh Information relayed patient's care treatments medications given condition recent/anticipated changes Clinical Documentation Summary Provided Yes Pain Scale 0 Pain Scale Used Standard (1-10) Blood Pressure 105/69 Heart rate 52 Respiratory Rate 16 Oxygen Delivery Nasal Cannula Oxygen Saturation 99 Critical Care Minutes 0 Fall Precautions Acute Start: 08/01/16 23: 57 Freq: Q12H Status: Active Document 08/01/16 23:57 MRB (Rec: 08/02/16 00:20 MRB [id number]) [facility] Fall Risk Assessment Tool Age 60-69 years (1 point) Fall History No falls within last 6 months (0 points) Elimination, Bowel, and Urine N/A (0 pts) Medications: Includes SALESPERSON HANDBAGS/opiates, N/A (0 points) antivulsants, ant-hypertensives, diuretics, hypnotics, Patient Care Equipment: Any equipment One present (1 point) that tethers patient (e.g. IV infusions, chest tube, indwelling Mobility N/A (0 points) Cognition N/A (0 points) Total Fall Risk Score 2 Fall Risk Category Low Risk (0-5) Family History-Meaningful Use Start: 08/01/16 23: 57 Freq: .Once Status: Active Document 08/02/16 00:02 MRB (Rec: 08/02/16 00:20 MRB [id number]) Family History-Meaningful Use Father Living Status Age at 76 Hx Family Cardiac Disorders Yes: PR Sister Hx Family Cardiac Disorders Yes: PACER/AFIB Mother Hx Family Cardiac Disorders Yes: CHF IV-Invasive Line Management Start: 08/01/16 23: 57 Freq: Q8H Status: Active Document 08/01/16 23:57 MRB (Rec: 08/02/16 00:20 MRB [id number]) IV/Invasive Line Assessment Right Antecubital Date of Insertion 08/01/16 Time of Insertion 21:19 Gauge (gauge) 18 IV Catheter Type Peripheral IV Site Observation Patent Porum Dressing Applied Window Dressing Line Care Saline Flush P-Locked Document 08/02/16 03:55 MRB (Rec: 08/02/16 04:18 MRB [id number]) IV/Invasive Line Assessment Right Antecubital Date of Insertion 08/01/16 Time of Insertion 21:19 Gauge (gauge) 18 IV Catheter Type Peripheral IV Site Observation Patent Porum Dressing Applied Window Dressing Line Care Saline Flush P-Locked Measure weight Start: 08/01/16 23: 57 Freq: Status: Active Document 08/02/16 00:05 TMM (Rec: 08/02/16 00:06 TMM [id number]) Height and Weight Height 1.8 m Weight 96.978 kg Weight Measurement Method Built in Bedscale Body Mass Index (BMI) 29.81 BMI Classification Overweight Document 08/02/16 05:00 TMM (Rec: 08/02/16 05:08 TMM [id number]) Height and Weight Weight 97.341 kg Weight Measurement Method Built in Bedscale Observation Admission Assessment Start: 08/01/16 23: 57 Freq: .once Status: Active Document 08/02/16 00:02 MRB (Rec: 08/02/16 00:20 MRB [id number]) General Questions Date of Arrival on Unit 08/02/16 Time of Arrival on Unit 00:00 Admitted From Emergency Dept Chief Complaint CHEST PAIN Onset of Chief Complaint 08/02/16 History Provided By Patient Family Member Orientation To Call Light Bed Phone TV Bathroom Smoking Policy Visiting Hours Procedures ID Bracelet On Emergency Contact Name Jen Brandon Relationship to Patient Emergency Contact Bands applied ID band Patient Health Portal Patient was provided information on Yes accessing patient portal Patient Requests Portal Enrollment No Reason No Portal Enrollment Patient Declines Advance Directives Advance Directives Yes Advance Directives Information Provided Yes Advance Directives on File No: requested copy Patient Rights Copy of Rights Given and Verbalizes Yes Understanding Tobacco Free [place]: Copy of [facility] Yes Statement Given and Patient Verbalizes Understanding Communication Ability Primary Language Trang Syrian Preferred Language Trang Syrian Ability to Follow Directions Good Communication Tools None Learning Preferences Discussion Hearing Ability Normal Visual Assistive Devices Glasses Pain Assessment Do You Have Any Ongoing (Chronic) Pain No Problems Educated on Pain Scale Yes Past Medical History Medical history atrial fibrillation GERD Male Surgical History other Psychiatric history no psych history Smoking Status Never smoker Alcohol use none Drug use none Occupational status retired Current living situation With Family Activity level Independent ambulation Recent Out of Country Travel Within the No Last 8 Weeks Exposure or Possible Exposure to Illness No During Travel Functional Assessment Employment Status Retired Eating (Feeding) Ability Independent Bathing Ability Independent Upper Body Dressing Ability Independent Lower Body Dressing Ability Independent Ambulation Ability Independent Toileting Ability Independent Bladder Continent Bowel Continent Psychosocial Over Age 75 and Lives Alone or Over Age No 80 Potential Need for Follow-up Care (ECF, No Home Health, ECT) Developmentally Disabled or History of No Mental Health Problems Diagnosis with Care Home Need or No Terminal Implications Responsible for Care of Others No Financial Concerns No Suspected Abuse or Neglect No Suicidal or Homicidal Ideation No Social Service Consult Needed No Obtain Old EKG Start: 08/01/16 20: 22 Freq: Status: Complete Document 08/01/16 21:19 DESI (Rec: 08/01/16 21:19 DESI [id number]) Oxygen administration Start: 08/01/16 23: 57 Freq: Q12H Status: Active Document 08/01/16 23:57 MRB (Rec: 08/02/16 00:20 MRB [id number]) Oxygen Oxygen Delivery Method Room Air Patient Belongings Start: 08/01/16 23: 57 Freq: .ONCE Status: Active Document 08/02/16 00:02 MRB (Rec: 08/02/16 00:20 MRB [id number]) Patient Belongings Belongings With Patient on Admission Yes At Bedside Patient Belongings Glasses Pants Shirt Shoes Patient Rounding Start: 08/01/16 23: 57 Freq: Q1H Status: Active Document 08/01/16 23:57 [facility] (Rec: 08/02/16 00:05 [facility] [id number]) Hourly Rounding Hourly Rounding Checked for Patient Positioning Patient Personal Items Placed Within Reach Hourly Rounding Completed Yes Patient Awake Is family present? Yes Safety Call Light Within Reach Bed Position Low Phone Within Reach Bed Brake On Side Rails Up X2 Are the Floors Free From Trip Hazards? Yes Is the Room Free From Clutter? Yes Turn and Postion Bedrest No Turn Q 2HR No Document 08/01/16 23:57 MRB (Rec: 08/02/16 00:20 MRB [id number]) Hourly Rounding Hourly Rounding Checked for Patient Positioning Patient Personal Items Placed Within Reach Checked Patient Pain Level Hourly Rounding Completed Yes Patient Awake Is family present? Yes Safety Call Light Within Reach Bed Position Low Phone Within Reach Bed Brake On Side Rails Up X2 Are the Floors Free From Trip Hazards? Yes Is the Room Free From Clutter? Yes Turn and Postion Bedrest No Turn Q 2HR No Patient Position Back Document 08/02/16 03:55 MRB (Rec: 08/02/16 04:18 MRB [id number]) Hourly Rounding Hourly Rounding Checked for Patient Positioning Patient Personal Items Placed Within Reach Checked Patient Pain Level Hourly Rounding Completed Yes Patient Awake Is family present? Yes Safety Call Light Within Reach Bed Position Low Phone Within Reach Bed Brake On Side Rails Up X2 Are the Floors Free From Trip Hazards? Yes Is the Room Free From Clutter? Yes Turn and Postion Bedrest No Turn Q 2HR No Patient Position Back Document 08/02/16 05:00 TMM (Rec: 08/02/16 05:08 TMM [id number]) Hourly Rounding Hourly Rounding Checked for Patient Positioning Patient Personal Items Placed Within Reach Hourly Rounding Completed Yes Patient Awake Is family present? Yes Safety Call Light Within Reach Bed Position Low Phone Within Reach Bed Brake On Side Rails Up X2 Are the Floors Free From Trip Hazards? Yes Is the Room Free From Clutter? Yes Turn and Postion Bedrest No Turn Q 2HR No Document 08/02/16 07:22 EAV (Rec: 08/02/16 07:26 EAV [id number]) Hourly Rounding Hourly Rounding Checked for Patient Positioning Patient Personal Items Placed Within Reach Hourly Rounding Completed Yes Patient Awake Is family present? Yes Comment patient denies needs at this time. Safety Call Light Within Reach Bed Position Low Phone Within Reach Bed Brake On Side Rails Up X2 Are the Floors Free From Trip Hazards? Yes Is the Room Free From Clutter? Yes Turn and Postion Bedrest No Turn Q 2HR No Patient Position Back RT Continuous Pulse Oximetry Start: 08/01/16 20: 22 Freq: Status: Complete Document 08/01/16 21:19 DESI (Rec: 08/01/16 21:19 [id number] Saline lock insertion/management Start: 08/01/16 20: 22 Freq: Status: Complete Document 08/01/16 21:19 DESI (Rec: 08/01/16 21:19 [id number] IV Insertion/Site Assessment IV Attempt 1 Successful Successful Blood drawn and sent to Lab Yes Right Antecubital Date of Insertion 08/01/16 Time of Insertion 21:19 IV Catheter Type Peripheral IV Gauge (gauge) 18 Site Observation Patent Dressing Applied Window Dressing Patient Tolerance Tolerated Well Sepsis Screening Start: 08/01/16 23: 57 Freq: Q8H Status: Active Document 08/01/16 23:57 MRB (Rec: 08/02/16 00:20 [facility] [id number]) Sepsis Screening Sepsis Infection Criteria Present none Sepsis SIRS Criteria none Sepsis Screen No Definite Risk Sepsis Action Taken no action required Skin Risk Assessment Scale Start: 08/01/16 23: 57 Freq: Q12H Status: Active Document 08/01/16 23:57 MRB (Rec: 08/02/16 00:20 MRB [id number]) Skin Risk Assessment Scale Moisture Risk Rarely Moist Sensory Perception No Impairment Activity Risk Walks Frequently Mobility Risk No Limitations Nutrition Risk Adequate Friction & Shear Risk No Apparent Problem Skin Risk Total Score (points) 22 Supplemental oxygen titration Start: 08/01/16 20: 22 Freq: Status: Complete Document 08/01/16 21:19 [facility] (Rec: 08/01/16 21:19 [facility] [id number]) Oxygen Adminstration Oxygen Saturation (95-100) 99 Oxygen Delivery Method Nasal Cannula Flow Rate 2 System Review Start: 08/01/16 23: 57 Freq: Q8H Status: Active Document 08/01/16 23:57 MRB (Rec: 08/02/16 00:20 B [id number]) Pain Assessment Pain Present Reports No Pain Neurological Assessment Eye Opening Spontaneous Motor Obeys Commands Verbal Oriented Coma Scale Total 15 Neurologic Status Alert Patient Orientation Person Place Time Arousable To Name Speech Pattern Normal rate Normal rhythm Normal tone Appropriate Clear Coherent Patient Behavior Appropriate Cooperative Mood Description Calm Relaxed Bilateral Pupil Reaction Reactive Pupil Size (mm) 3 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 Supervisor Strength Equal Push/Pull Equal Numbness/Tingling No Facial Symmetry Symmetrical Cardiovascular Assessment Signs and Symptoms None Heart Sounds S1 & S2 Pulse Rhythm Regular Jugular Vein Distention None Capillary Refill < 3 Seconds Right Radial 2+ Left Radial 2+ Right Dorsalis Pedis 2+ Left Dorsalis Pedis 2+ Mechanical Prophylaxis No Cardiac Monitoring Heart Rate 55 Monitoring Method Telemetry Rhythm Sinus Rhythm Sinus Bradycardia TN Interval 0.16 QRS Interval 0.03 QT Interval 0.38 Monitor Number [id number] Chemical Instrumentation Officer Limits 110/40 Strip placed in Chart Yes Monitor History Reviewed Yes Memory Cleared No Respiratory Assessment Respiratory Symptoms Shortness of Breath on Exertion Effort Normal for Patient Spontaneous Non-Labored Depth Normal Respiratory Pattern Regular Chest Shape Normal Expansion Symmetrical All Lung [place] Clear Cough Description None Gastrointestinal Assessment Abdomen Description Soft Non-Tender Large 3 or more loose stools, in less than 24 No hours Nausea/Vomiting Presence None All Four Quadrants Active Genitourinary Assessment Genitourinary Symptoms Burning Bladder Pattern Normal Voiding Method Toilet Bladder Distention None Suprapubic Tenderness with Palpation No Integumentary Assessment Nail Bed Appearance Porum Temperature Warm Moisture Dry Turgor Normal Color Normal All Pressure Points Assessed No Evidence of Incision/Wounds/Breakdown No: pt states no wounds Mucous membranes moist, pink and intact Yes Oral Cavity Normal Musculoskeletal Assessment Musculoskeletal Symptoms None Teaching Record Start: 08/01/16 23: 57 Freq: Q12H Status: Active Document 08/01/16 23:57 MRB (Rec: 08/02/16 00:20 MRB [id number]) Teaching Record: General Education Topics Medications Hospital Environment Diet Response Verbalize understanding Methods Discussion Recipient Patient Triage Start: 08/01/16 20: 22 Freq: Status: Complete Document 08/01/16 20:22 SLA (Rec: 08/01/16 20:26 SLA [id number]) Triage Chief Complaint triage ED Chest Pain Patient Stated Complaint chest pain TAMERA 2 Onset (ago) Just FISHER EEL SPEAR Description of Symptoms patient states, i just had about 1030 bad chest pain around whole chest and went to hospital in [place] and they checked me out and everything came back okay and did ekg and blood work chest xray and two nitro and felt good and they got home and the pain is just staying there. patient states it seems to get worse when moving General Appearance alert Work Related Injury? No Mode of arrival ambulatory Source patient Limitations no limitations Ebola Risk: Travel/Contact With Anyone No From Affected Area/s Has Patient Experienced Ebola Symptoms No Temperature (97.6 F-99.6 F) 98.2 F Temperature Source Oral Pulse Rate 71 Respiratory Rate 18 Blood Pressure 122/78 O2 Sat by Pulse Oximetry (95-100) 94 L Oxygen Delivery Room Air Height 1.8 m Weight 92.986 kg Weight Measurement Method Stated by Patient Pain Scale 4 Pain Scale Used Standard (1-10) Medical history GERD other Additional medical history PMH A fib, allergic rhinitis, plantar fascitis Additional surgical history PMH Right foot surgery, bilat knee menescis tears repaired, heart cath no stents, Psychiatric history no psych history Smoking Status Never smoker Smokeless Tobacco Status No Alcohol Use none Drug Use none Patient resides with/at Spouse Safety Concerns Feels Safe At This Time Do you currently feel hopless, have No thoughts of self harm, or thoughts of harming others History of fall in last 14 days? No Influenza vaccine up to date Yes Pneumonia vaccine up to date Yes Tetanus UTD yes Coma Scale Eye Opening Spontaneous Coma Scale Motor Response Obeys Commands Coma Scale Verbal Response Oriented Coma Scale Total 15 Vital Signs Assessment Start: 08/01/16 20: 22 Freq: Status: Active Document 08/01/16 21:30 DESI (Rec: 08/01/16 22:19 [facility] [id number]) ED Vital Signs Pain Reported Pain Reported Pain Scale 2 Blood Pressure 122/71 Pulse Rate 53 Respiratory Rate 16 Pulse Oximetry (95-100) 99 Oxygen Delivery Nasal Cannula Oxygen Flow Rate (LPM) 2 Document 08/01/16 22:00 DESI (Rec: 08/01/16 22:19 [facility] [id number]) ED Vital Signs Pain Reported Pain Reported Pain Scale 2 Blood Pressure 106/71 Pulse Rate 55 Respiratory Rate 16 Pulse Oximetry (95-100) 99 Oxygen Delivery Nasal Cannula Oxygen Flow Rate (LPM) 2 Document 08/01/16 22:30 DESI (Rec: 08/01/16 23:06 [facility] [id number]) ED Vital Signs Pain Reported No Pain Reported Blood Pressure 98/65 Pulse Rate 54 Respiratory Rate 16 Pulse Oximetry (95-100) 99 Oxygen Delivery Nasal Cannula Oxygen Flow Rate (LPM) 2 Vital Signs Assessment Start: 08/01/16 23: 57 Freq: Q4H Status: Active Document 08/01/16 23:57 TMM (Rec: 08/02/16 00:05 [facility] [id number]) Vital Signs with MEWS Temperature (97.6 F-99.6 F) 97.9 F Temperature Source Oral Pulse Rate 51 Respiratory Rate 16 Pulse Oximetry (95-100) 96 Oxygen Delivery Room Air Blood Pressure 113/71 Blood Pressure Location Left Arm Source Automatic Cuff Position Supine Neuro Status *recalled from last Alert documentation MEWS Score 1 Document 08/02/16 05:00 TMM (Rec: 08/02/16 05:08 [facility] [id number]) Vital Signs with MEWS Temperature (97.6 F-99.6 F) 98.4 F Temperature Source Oral Pulse Rate 67 Respiratory Rate 16 Pulse Oximetry (95-100) 95 Oxygen Delivery Room Air Blood Pressure 93/56 Blood Pressure Location Left Arm Source Automatic Cuff Position Supine Neuro Status *recalled from last Alert documentation MEWS Score 2 Document 08/02/16 07:22 EAV (Rec: 08/02/16 07:26 EAV [id number]) Vital Signs with MEWS Temperature (97.6 F-99.6 F) 98.2 F Temperature Source Oral Pulse Rate 51 Respiratory Rate 16 Pulse Oximetry (95-100) 94 L Oxygen Delivery Room Air Blood Pressure 104/68 Blood Pressure Location Left Arm Source Automatic Cuff Position HOB Elevated Neuro Status *recalled from last Alert documentation MEWS Score 1 Wound Assessment Start: 08/01/16 23: 57 Freq: Q8H Status: Active Document 08/01/16 23:57 MRB (Rec: 08/02/16 00:20 MRB [id number]) Drains Tube/Drain Discontinued No Discharge Information ED Provider: Benjy Duenas Status: Departed Time Seen by Provider: 08/01/16 21:09 Condition: Good Triaged At: 08/01/16 20:22 Emergency Discharge Date/Time: 08/01/16 23:51 Emergency Discharge Disposition: Admitted As Inpatient Clinical Impression Chest pain Emergency Discharge Comment: Admit Intervention Last Done ED Chest Pain Assessment 08/01/16 21:19 Query Result Chest Pain Duration Constant Chest Pain Onset this am Chest Pain Location Left Chest Right Chest Chest Pain Radiation Right Upper Extremity Back Chest Pain Improves With Nitroglycerin Chest Pain Associated Symptoms Dyspnea Level Of Consciousness Awake Alert Appropriate Patient Orientation Person Place Time Name Age Date of Day of Month Day of Week Month Year Time of Day Respiratory Depth Normal Respiratory Effort Normal for Patient Spontaneous Non-Labored Respiratory Pattern Regular Oxygen Delivery Method Nasal Cannula Anterior & Posterior Bilateral Throughout -Breath Sounds Clear Cough Description None Nausea/Vomiting Presence None Hx Myocardial Infarction No Hx Angina No Hx Congestive Heart Failure No Hx Coronary Artery Bypass Graft No Hx Coronary Stent No Hx Cardiac Arrhythmia Yes Hx Auto Implanted Cardiovert Defib No Hx Pacemaker No Hx Deep Vein Thrombosis No Hx Clotting Problems No Hx Peripheral Vascular Disease No Hx Cardiac Disorders No HX Cerebrovascular Accident No Hx Diabetes Mellitus Type 1 No Hx Diabetes Mellitus Type 2 No Hx Surgeries No Hx Recent Childbirth No Hx Recreational Drug Use No Hx Substance Use No ED Comment Pt states that he has had chest pain all day. Pt states that he was seen at [facility] this morning and recieved nitro, ekg and lab work. Pt states that the nitro relieved his chest pain and they wanted him to stay but he wanted to go home. Pt states that he returned to the er due to his chest pain not going away. ED Discharge Assessment 08/01/16 23:11 Query Result ED Discharge Disposition Admitted Med Rec/Patient Phamracy completed? Yes ED Admit to 3B Bed assigned 14 Transported by health care sanitary technician Transported with monitor oxygen IV pulse oximetry Report given to Nurse Care transferred to Afshan RN Information relayed patient's care treatments medications given condition recent/anticipated change Clinical Documentation Summary Provided Yes Severity scale (1-10) 0 Pain Scale Used Standard (1-10) Blood Pressure 105/69 Heart rate 52 Respiratory Rate 16 Oxygen Delivery Nasal Cannula Pulse Oximetry Reading 99 Critical Care Minutes 0 Observation Discharge Date/Time: Observation Discharge Disposition: Observation Discharge Comment: Instructions: Stand-Alone Forms: Prescriptions: Visit Report - Forms: - Referrals: Radiology Results Chest X-Ray 08/01/16 21:12
[2016-08-02 08:10] LABS: VBG HCO3 24.9 mEq/L (21-27); VBG PH 7.37 pH Units (7.32-7.42)
[2016-08-02 08:16] LABS: Ionized Calcium 1.14 mmol/L (1.15-1.35)
[2016-08-02 08:26] LABS: Albumin 3.9 g/dL (3.5-5.0); Albumin/Globulin Ratio 1.4 (1.1-2.2); Bilirubin,Direct 0.4 mg/dL (0.0-0.5); Bilirubin,Indirect 0.4 mg/dL (0.0-1.2); Bilirubin,Total 0.8 mg/dL (0.2-1.2); Chol/HDL Ratio 2.8 (0-4.9); Globulin 2.8 g/dL (2.4-3.5); Magnesium 2.2 mg/dL (1.6-2.6); Phosphorous 2.8 mg/dL (2.3-4.7); Total Protein 6.7 g/dL (6.0-8.3)
[2016-08-02] MEDS ORDERED: Pantoprazole 40 MG VIAL IVP SCH (09:00)
[2016-08-02] MEDS ORDERED: FLECAINIDE ACETATE 150 MG PO SCH (09:00)
[2016-08-02] MEDS ORDERED: Aspirin 81 MG TAB.CHEW PO SCH (09:00)
[2016-08-02 09:11] LABS: Thyroid Stimulating Hormone 1.144 mcIU/mL (0.350-4.840)
[2016-08-02 09:40] LABS: Bilirubin,Urine Negative (Negative); Blood,Urine Negative (Negative); Clarity,Urine Clear (Clear); Color,Urine Yellow (Yellow); Glucose,Urine (UA) Normal (Normal); Ketones,Urine Negative (Negative); Leukocyte Esterase,Urine Negative (Negative); Nitrite,Urine Negative (Negative); Protein,Urine Negative (Neg-Trace); Urobilinogen,Urine Normal (Normal)
--- NOTE | 2016-08-02 11:34 | Nuclear Medicine Stress Report ---
Exercise Nuclear Stress Name: Luis Brandon Date of Study: 08/02/2016 Date: 1950 Ht: 70.0 in Medical Record#: [id number] Age: 65 Wt: 214.0 lb Gender: Male Order #: [id number] Location: [facility] IP Room: [facility] Supervising Provider: Suhail De La Garza CNP Reading Physician: Emmanuel Barney MD, [facility] Ordering Physician: Amanda Ha CNP Primary Care Physician: Emmanuel Chand MD Stress Technologist: Rm Silva, AIR HOIST OPERATOR, [facility] Audio Visual Aids Director: Salazar Muhammad Indications: Chest Pain Impression: The exercise capacity was good. Exercise ECG is negative for ischemia. Gated LVEF = 68%. There is a medium sized, mild intensity, reversible perfusion defect involving the basal-apical inferior wall and apex. Findings are consistent with mild reversible ischemia involving the inferior wall and apex. Abnormal results communicated to ordering provider via Car Throttle message. History: Hypertension Stress Test Summary: Stress Test Type: Treadmill Protocol: Sina Baseline Information: Initial Heart Rate: 79 Blood Pressure: 112/76 Stress Information: Stress Time: 9 min 00 sec Test Terminated Due to (primary): Dyspnea Maximum Blood Pressure: 154/74 Maximum Heart Rate: 146 Percent Maximum Heart Rate Achieved: 93 Double Product: 10609 METS Reached: 10.1 Symptoms: Shortness of breath, Fatigue Nuclear Summary: SPECT myocardial perfusion imaging using Tc99m Sestamibi given intravenously was performed at rest and following cardiac stress testing. The resting images were obtained following initial dose of 10 mCi. Following stress an additional dose of 33.4 mCi was given at peak exercise or 30 seconds post regadenoson infusion. Findings: Stress Note * Resting ECG demonstrated normal sinus rhythm. * No baseline arrhythmias were noted. * The exercise capacity was good. * Patient had no chest pain during stress. * No arrhythmias were noted during stress. * Exercise ECG is negative for ischemia. Hemodynamic responses * Normal hemodynamic responses to exercise. Study Quality * Study quality is average. Gated EF % * Gated LVEF = 68%. Left Ventricle * The left ventricle is not dilated. * Normal Segmental Perfusion in rest. * There is a medium sized, mild intensity, reversible perfusion defect involving the basal-apical inferior wall and apex. * Findings are consistent with mild reversible ischemia involving the inferior wall and apex. TID * No evidence of transient ischemic dilatation. Updated by Emmanuel Barney MD, FACC on 08/02/2016 11:29:40 AM electronically signed on 08/02/2016 11:30:07 AM with status of Final
--- NOTE | 2016-08-02 12:02 | Electrocardiograph Report ---
[place] [id number] Test Date: 2016-08-01 Pat Name: Luis Brandon Department: 102 Room: 3B Gender: M Tilesetter: [place] : 1950 Requested By: William Sherman Order Number: [id number] Reading MD: Sina Oscar MD Measurements Intervals [place] Rate: 63 P: 22 PA: 156 QRS: -12 QRSD: 96 T: 9 QT: 392 QTc: 400 Interpretive Statements SINUS RHYTHM LOW QRS VOLTAGE IN PRECORDIAL LEADS Electronically Signed On 08-02-2016 12:00:29 EDT by Sina Oscar MD
--- NOTE | 2016-08-02 12:15 | ECHO - Doppler Report ---
Echocardiogram Name: Luis Brandon Date of Study: 08/02/2016 Date: 1950 Ht: 71.0 in Medical Record#: [id number] Age: 65 Wt: 214.0 lb Gender: Male BSA: 2.17 Order #: [id number] Location: [facility] Room #: 3B14 Reading Physician: Emmanuel Barney MD, [facility] Revenue Stamp Cutter: Italia Kothari Ordering Physician: Cruzito Sauceda MD Primary Physician: Emmanuel Chand MD Indications: ACS Impressions: Normal LV systolic function, LVEF 65%. Mild left ventricular diastolic dysfunction. Normal right ventricular size and function. No significant valvular dysfunction. No evidence of pulmonary hypertension. Left Ventricular Wall Motion: Rest Echo Findings All wall segments showed normal motion. Findings: Study Quality * Technically adequate exam. ECG Findings * Sinus rhythm with BBB. Left Ventricle * Normal LV systolic function, LVEF 65%. * Normal LV chamber size and wall thickness. * Mild left ventricular diastolic dysfunction. Right Ventricle * Normal right ventricular size and function. Left Atrium * Normal left atrial size. Right Atrium * Normal right atrial size. Aorta * Normally sized aortic root. Pericardium * There is a trivial pericardial effusion present. IVC * The IVC is not dilated. Aortic Valve * Trileaflet aortic valve. * No aortic stenosis. * No aortic regurgitation. Mitral Valve * Normal mitral valve structure. * No mitral stenosis. * Trace mitral regurgitation. Tricuspid Valve * Normal tricuspid valve structure. * No tricuspid stenosis. * Trace tricuspid regurgitation. * No evidence of pulmonary hypertension. Pulmonic Valve * Pulmonic valve not well visualized. * No pulmonic stenosis. * Trace pulmonic regurgitation. History Hypertension Family History of CAD 11/16/15 a Previous Echo was performed. Measurements: BP: 104/ 68 2D Normal Values RVIDd: 3.50 cm IVSd: 1.00 cm 0.6 - 1.0 cm LVIDd: 5.10 cm 3.7 - 5.6 cm LVPWd: 1.00 cm 0.6 - 1.1 cm LVIDs: 3.10 cm 1.5 - 3.6 cm AO: 3.40 cm < 4.0 cm LA volume: 63 Mitral Valve Peak E:.50 m/sec Peak A:.70 m/sec E/A Ratio:0.8 Tricuspid Valve TV Regurg Peak Grad: 19.00mmHg TV Regurg Peak Federico: 2.19m/sec Updated by Emmanuel Barney MD, [facility] on 08/02/2016 12:09:38 PM electronically signed on 08/02/2016 12:10:01 PM with status of Final Wall Motion Virk: 1=Normal, 2=Hypokinesis, 3=Akinesis, 4=Dyskinesis, 5=Aneurysmal, 6=Hyperkinetic, X=Not Visualized (Blank)=Missing
--- NOTE | 2016-08-02 15:41 | Cardiology Consult Note ---
<Nikita Curry - Last Filed: 08/02/16 15:52> Date of Encounter: 08/02/16 Time of Encounter: 14:00 Assessment and Plan (1) Chest pain, rule out acute myocardial infarction Status: Acute Per Cardiology: Patient denies any CP. Trops 0.00 x 3. (2) Belching symptom Status: Acute Per Cardiology: Presented with epigastric burning,. Hx of GERD. Recent C scope. Symptoms occurred after meals. Consider GI eval as outpatient EGD. (3) Abnormal nuclear cardiac imaging test Status: Acute Per Cardiology: Stress test results reviewed and patient with ECG negative for ischemia, EF 60% , achieved 10.1 METS, however nuclear exam consistent with mild reversible ischemia involving the inferior wall and apex. Options discussed with patient and regarding conservative medical management versus left heart catheterization. Clinical presentation atypical with negative troponins. However patient on flecainide therapy for atrial fibrillation. Discussed and reviewed with Dr. Moya and her primary Dealer Account Manager Dr. Barney-- recs to proceed with left heart catheterization to determine flecainide therapy remains appropriate. All questions answered. (4) PAF (paroxysmal atrial fibrillation) Status: Chronic Per Cardiology: He remains sinus rhythm. On flecainide therapy. Not anticoagulated, [id number] Vasc = 0. Discussion w patient/family: The assessment and plan as outlined above was discussed with the patient and/or family members who expressed understanding and agreement. All questions were answered. Thank you for involving us in the care of your patient. Please call with any questions. History of Present Illness Consult date: 08/02/16 Requesting physician: Amanda Ha Consult reason: Abnromal Stress test Chief complaint: Epigastric Burning History of present illness: Mr. Brandon is a 65 year old male with a relevant past apical history of paroxysmal atrial fibrillation on flecainide and not on anticoagulation, history of SVT, recent history of lower GI bleed 2-3 occurrences over the past 2 -3 months status post recent colonoscopy, history of colon polyps, GERD, and obesity. The reports family history father of dying from NM at age 76. Patient and report he was eating breakfast yesterday Pollack's eating a sausage Egg McMuffin and developed midsternal epigastric burning with significant amount of belching. He reports a past history of GERD. He reports symptoms eventually subsided. He reports yesterday evening he ate beef sirloin soup and laid down and took a nap and upon awakening developed similar symptoms of midsternal epigastric burning with belching, however not as bad as previous episodes. He denies any chest pain symptoms. He denies any known history of CAD reports last catheterization many years ago. He reports occasional dyspnea on exertion. He does report increasing fatigue over the past few weeks. Denies any current active bleeding or blood loss. Reports about a month ago had bright red and dark red blood and is status post colonoscopy with Dr. Blankenship and was told suspicious for hemorrhoids. Past Med Surg Social Fam HX - Past Medical History Attestation: Yes The following information was validated with the patient. Source: patient, old records reviewed, obtained from family Medical history: arthritis, atrial fibrillation, GERD, GI bleed (History of lower GI bleed. History of colonic polyps.), renal disease (BPH./Prostatism), SVT, other (Allergic rhinitis.) Psychiatric history: no psych history - Past Surgical History Surgical History: other - Social History Smoking Status: Never smoker Smokeless Tobacco Status: No Alcohol use: none Drug use: none - Family History Mother Hx Family Cardiac Disorders: Yes (CHF) Sister Hx Family Cardiac Disorders: Yes (PACER/AFIB) Father Living Status: Age at : 76 Hx Family Cardiac Disorders: Yes (NM) Medications and Allergies Atenolol [Tenormin] 12.5 mg PO DAILY 07/16/16 [History] Docusate Sodium [Colace] 100 mg PO DAILY PRN 07/16/16 [History] Flecainide Acetate 150 mg PO BID 07/16/16 [History] Fluticasone Propionate Nasal [Flonase] 50 mcg NS DAILY PRN 07/16/16 [History] Omeprazole 20 mg PO BID PRN 07/16/16 [History] Montelukast [Singulair] 10 mg PO DAILY 08/01/16 [History] Tamsulosin [Flomax] 0.4 mg PO DAILY 08/01/16 [History] Aspirin 81 mg PO DAILY tab.chew 08/02/16 [Rx] Rosuvastatin [Crestor] 20 mg PO HS #30 tablet 08/02/16 [Rx] Sucralfate [Carafate] 1 gm PO 0730,1630 #60 tablet 08/02/16 [Rx] Allergies No Known Allergies Allergy (Verified 07/16/16 11:49) All Systems Review: A 10-system review of systems was performed and is negative for pertinent findings except as documented above in the HPI. - Constitutional Constitutional: fatigue - Cardiovascular Cardiovascular: as per HPI, dyspnea on exertion - Gastrointestinal Gastrointestinal: other (epigastric pain) Physical Examination Vital Signs, Last 4 Hours Temp Pulse Resp BP Pulse Ox 08/02/16 12:21 97.3 F L 77 16 111/76 98 General: Conversant, No Apparent Distress HEENT: Atraumatic, Normocephaly, Mucus Membranes Moist Neck: No JVD Cardiac: Reg Rate and Rhythm, Normal S1 and S2, No Murmur Lungs: Normal Breath Sounds, No Wheeze, Rales, Rhonchi Neuro: Alert and responsive, No focal deficits noted Abdomen: Soft, Non-Tender Skin: No rashes noted on visualized skin Musculoskeletal: No Chest Wall Tenderness Extremities: No Edema, Normal Pulses Results 08/01/16 21:37 08/01/16 21:20 Lab Results Laboratory Tests 08/01/16 08/01/16 08/02/16 21:20 21:20 07:58 INR 1.1 Hemoglobin A1c 5.1 Troponin I 0.00 08/02/16 08/02/16 07:58 12:59 INR Hemoglobin A1c Troponin I 0.00 0.00 ITS Impressions Chest X-Ray 08/01/16 21:12 IMPRESSION: No acute cardiopulmonary abnormality. D/ / Koko Jacob MD / Koko Jacob MD Interpreting Provider: Kook Jacob MD Gallbladder Ultrasound 08/02/16 14:30 IMPRESSION: Cholelithiasis, without ancillary evidence of acute cholecystitis. Fatty liver. D/ / Eric Jaime MD / Eric Jaime MD Interpreting Provider: Eric Jaime MD Active Medications Acetaminophen (Tylenol) 650 mg PO Q6HR PRN PRN Reason: Mild Pain (1-3) Stop: 02/01/17 07:23 Al Hydrox/Mg Hydrox/Simethicone (Maalox) 15 ml PO Q6HR PRN PRN Reason: Dyspepsia Stop: 02/01/17 07:23 Albuterol/Ipratropium (Duoneb) 3 ml IH [id number] PRN; Protocol PRN Reason: Shortness Of Breath/Wheezing Stop: 02/01/17 07:32 Aspirin (Aspirin) 81 mg PO DAILY [facility] Stop: 02/01/17 09:01 Last Admin: 08/02/16 13:45 Dose: 81 mg Atenolol (Tenormin) 12.5 mg PO DAILY [facility] Stop: 02/01/17 09:01 Last Admin: 08/02/16 13:48 Dose: Not Given Benzonatate (Tessalon) 200 mg PO TID PRN PRN Reason: Cough Stop: 02/01/17 07:32 Docusate Sodium (Colace) 100 mg PO BID [facility] Stop: 02/01/17 09:01 Last Admin: 08/02/16 13:45 Dose: 100 mg Enoxaparin Sodium (Lovenox) 40 mg SQ 0600 YANE PRN Reason: Protocol Stop: 02/02/17 06:01 Flecainide Acetate (Flecainide) 150 mg PO BID [facility] Stop: 02/01/17 09:31 Last Admin: 08/02/16 09:33 Dose: 150 mg Fluticasone Propionate (Flonase) 50 mcg NS DAILY PRN; Protocol PRN Reason: Allergy Symptoms Stop: 02/01/17 07:29 Guaifenesin (Mucinex) 600 mg PO BID [facility] Stop: 02/01/17 09:01 Last Admin: 08/02/16 13:43 Dose: Not Given Sodium Chloride (0.9 % Sodium Chloride) 1,000 mls @ 50 mls/hr IVC .Q20H [facility] Stop: 02/01/17 07:31 Last Admin: 08/02/16 13:41 Dose: 50 mls/hr Lisinopril (Zestril) 2.5 mg PO DAILY [facility] Stop: 02/01/17 09:01 Last Admin: 08/02/16 13:48 Dose: Not Given Magnesium Hydroxide (Milk Of Magnesia Conc) 10 ml PO DAILY PRN PRN Reason: Indigestion Stop: 02/01/17 07:23 Metoprolol Tartrate (Lopressor) 5 mg IVP Q6HR PRN PRN Reason: SEE COMMENTS Stop: 02/01/17 07:23 Montelukast Sodium (Singulair) 10 mg PO DAILY [facility] Stop: 02/01/17 09:01 Last Admin: 08/02/16 13:45 Dose: 10 mg Morphine Sulfate (Morphine Sulfate) 2 mg IVP Q2H PRN PRN Reason: Severe Pain (7-10) Stop: 02/01/17 07:23 Naloxone HCl (Narcan) 0.4 mg IVP Q2MIN PRN PRN Reason: Opioid Reversal Stop: 02/01/17 07:23 Nitroglycerin (Nitroglycerin) 0.4 mg SL Q5MIN PRN PRN Reason: Chest Pain Stop: 01/31/17 21:53 Last Admin: 08/01/16 22:16 Dose: 0.4 mg Ondansetron HCl (Zofran) 4 mg IVP Q8HR PRN PRN Reason: Nausea And Vomiting Stop: 02/01/17 07:23 Oxycodone HCl (Roxicodone) 10 mg PO Q6HR PRN PRN Reason: Moderate Pain (4-6) Stop: 02/01/17 07:23 Pantoprazole Sodium (Protonix) 40 mg IVP BID [facility] Stop: 02/01/17 09:01 Last Admin: 08/02/16 13:45 Dose: 40 mg Pharmacy Profile Note (Patient Taking Own Medication) 0 each PO BID [facility] Stop: 02/01/17 09:01 Last Admin: 08/02/16 13:47 Dose: Not Given Rosuvastatin Calcium (Crestor) 20 mg PO HS [facility] Stop: 02/01/17 21:01 Sucralfate (Carafate) 1 gm PO 0730,1630 [facility] Stop: 02/01/17 16:31 Tamsulosin HCl (Flomax) 0.4 mg PO DAILY [facility] PRN Reason: Protocol Stop: 02/01/17 09:01 Last Admin: 08/02/16 13:46 Dose: Not Given - Imaging and Cardiology Chest Xray: report reviewed Stress Test: report reviewed - EKG Interpretation EKG results cardiology: personally reviewed, normal ECG, sinus rhythm Consult Discharge Plan - Plan Instructions: Chest Pain (DC) Additional Instructions: Follow up with cardiology as scheduled Follow up with your family doctor within the next week Continue your normal home medications Return to ER as needed for any problems, concerns, or if your condition changes. Referrals: Emmanuel Chand MD [Primary Care Provider] - 08/07/16 11:00 am Prescriptions: Rosuvastatin [Crestor] 20 mg PO HS #30 tablet Sucralfate [Carafate] 1 gm PO 0730,1630 #60 tablet <Dejah Moya - Last Filed: 08/03/16 13:09> Date of Encounter: 08/03/16 Assessment and Plan Discussion w patient/family: The assessment and plan as outlined above was discussed with the patient and/or family members who expressed understanding and agreement. All questions were answered. Thank you for involving us in the care of your patient. Please call with any questions. History of Present Illness History of present illness: Mr. Brandon is a 65 year old male All Systems Review: A 10-system review of systems was performed and is negative for pertinent findings except as documented above in the HPI. Results 08/01/16 21:37 08/01/16 21:20 Lab Results 08/02/16 08/02/16 12:59 19:17 Troponin I 0.00 0.01 - Attending Attestation I examined this patient and my medical decision-making was reviewed with the RECREATION COORDINATOR/PA/Advanced Practice Nurse/Resident Physician. I agree with the documented findings, disposition and treatment plan.
[2016-08-02] MEDS ORDERED: *HR* FentaNYL (PF) 100 MCG/2 ML VIAL ONE (15:48)
[2016-08-02] MEDS ORDERED: *HR* Heparin 10,000 UNIT/10 ML VIAL ONE ×2 (15:48→16:02)
[2016-08-02] MEDS ORDERED: *HR* Midazolam HCl 5 MG/5 ML VIAL IVP ONE (15:48)
[2016-08-02] MEDS ORDERED: 0.9 % Sodium Chloride 1,000 ML ONE (15:49)
[2016-08-02] MEDS ORDERED: Heparin 1,000 UNITS/500 mL NS 500 ML ONE (15:49)
--- NOTE | 2016-08-02 15:52 | Pre-Sedation Evaluation ---
Pre-sedation evaluation - Pre-sedation checklist Date of procedure: 08/02/16 Procedure: [facility] Recent Vitals: Last Vital Signs Temp 97.3 F L 08/02/16 12:21 Pulse 77 08/02/16 12:21 Resp 16 08/02/16 12:21 BP 111/76 08/02/16 12:21 Pulse Ox 98 08/02/16 12:21 H&P (including ROS) documented in medical record: Yes Previous reaction to sedatives/anesthetics: No Dietary Status: NPO after Midnight Airway Assessment: Patient can open mouth completely, TMJ function normal Dentition: No loose teeth or bridges ASA Classification *see protocol: CLASS II-Mild systemic disease Plan of Care: Pt appropriate candidate for procedure/moderate/conscious sedation , Risks/benefits of procedure/sedation discussed w/ patient/family
[2016-08-02 15:55] LABS: Hemoglobin A1C 5.1 %
[2016-08-02] MEDS ORDERED: Nitroglycerin 1,000 MCG/10 ML VIAL IV ONE (15:59)
[2016-08-02] MEDS ORDERED: Verapamil 5 MG/2 ML VIAL ONE (15:59)
[2016-08-02] MEDS ORDERED: Sucralfate 1 GM TABLET PO SCH (16:30)
--- NOTE | 2016-08-02 16:37 | Invasive Diagnostic Lab Proc ---
Name: Luis Brandon Date of Study: 08/02/2016 Date: 1950 Ht: 70.9in Medical Record#: [id number] Age: 65 Wt: 213.85lb Gender: Male BSA: 2.17 Order #: [id number] BMI: 29.94 Physicians Procedure Physician: Sina Oscar MD, [facility] Referring MD: Referring MD: Staff Name Position Time In Kayla Su RT (R) Monitor 03:49 PM Jad Guzman RN Vascular Ultrasound Technologist 03:49 PM Claudette Damon RT (R) Monitor 03:50 PM Sites, Clary RT (R) Monitor Sites, Clary RT (R) Monitor 04:01 PM Claudette Damon RT (R) Monitor 04:01 PM Indications Indication Abnormal Test - Stress Procedures Performed Procedure L HRT ARTERY/VENTRICLE ANGIO Pre-Procedure Checklist Informed consent is complete signed and on chart. H\\T\\P is on chart. ID band is on and ID verified with patient. Patient NPO for procedure The procedure was described for the patient and questions were answered. Blood Pressure: 123/77 ECG is on chart. Rhythm: NSR Plan of Care Patient will tolerate the procedure without complications. Adequate level of comfort will be maintained. Hemodynamics will remain stable Patient will recover from procedure without complications. Respiratory function will be maintained. Cardiac rhythm will remain stable. Patient temperature will be maintained. Patient and/or family have verbalized understanding of the procedure. Patient Education Chief Complaint/Reason for Test: Cardiac Cath Developmental Category: Adult (18-64 years) Developmentally Appropriate for Age: Yes Learning Barriers: None Education Needs: Procedure Education Method: Verbal Information Taught: Cardiac Cath Educational Evaluation: Able to repeat information Intravenous Access Time IV Size Location DC'd Fluid/Drip Rate Units RN 03:48 PM 18g 1 1/4" Patent On Arrival Rt Antecubital 0.9NaCl 25 ml/hr Jad Guzman RN Allergies No Known Allergies Vital Signs Time BP (mmHg) HR (bpm) O2 Sat. RR (bpm) LOC 03:49 PM 111 / 76 77 98 % 20 5 = Fully awake and oriented or at pre-proc level 03:50 PM / % 5 = Fully awake and oriented or at pre-proc level 04:03 PM / % 5 = Fully awake and oriented or at pre-proc level 04:03 PM / % 4 = Oriented but drowsy 03:55 PM 115 / 70 88 98 % 6 04:00 PM 123 / 77 81 100 % 11 04:05 PM 126 / 72 73 100 % 9 04:10 PM 117 / 71 75 99 % 11 04:15 PM 110 / 74 86 99 % 17 04:20 PM 116 / 67 71 99 % 11 Procedural Medications Time Medication Dose Units Method Given By 03:50 PM Oxygen 2 L/min nasal cannula Jad Guzman RN 03:55 PM Versed 2 mg Intravenous HenthorneJad RN 03:55 PM Fentanyl 50 mcg Intravenous AbimbolaornJad bush RN 04:13 PM Lidocaine 2% 0.5 ml Subcutaneous Sina Oscar MD, FAC 04:13 PM Heparin 4000 units Nitroglycerin 200 mcg Verapamil 2.5 mg Intraarterial Sina Oscar MD, FAC 04:13 PM Versed 1 mg Intravenous EdwinthorneJad RN 04:13 PM Fentanyl 25 mcg Intravenous Jad Guzman RN ASA Classification: CLASS II- Mild systemic disease (i.e. well-controlled diabetes, hypertension, asthma, cigarette smoking) Danya Score Preprocedure Postprocedure Activity 2- Moves 4 extremities sustained head lift Activity 2- Moves 4 extremities sustained head lift Circulation 2- SBP +/= 20 points of pre-anesthetic level Circulation 2- SBP +/= 20 points of pre-anesthetic level Consciousness 2- Awake and alert oriented x 3 Consciousness 2- Awake and alert oriented x 3 O2 Saturation 2- Able to maintain O2 satruation of 92% on room air O2 Saturation 2- Able to maintain O2 satruation of 92% on room air Respiratory 2- Able to deep breathe and cough well Respiratory 2- Able to deep breathe and cough well Total Score 10 Total Score 10 Contrast Agent: Isovue Diagnostic Contrast: 55 ml Total Contrast: 55 ml Fluoro Dose: 75 mGy Procedure Log Time Note Enter By 03:49 PM Clary Barahona RT (R) Position: Monitor Time in: 15:49 tsites 03:49 PM Claudette Damon RT (R) Position: Monitor Time in: 15:49 tsites 03:49 PM Pt arrived to [facility] coreroom 1 at 15:49 [email or web address] 03:49 PM Kayla Su RT (R) Position: Monitor Time in: 15:49 [email or web address] 03:49 PM Henthorne, Jad RN Position: Vascular Ultrasound Technologist Time in: 15:49 03:50 PM Patient charges- Angio tray pack, Navilyst 3mm J, Pulse Oximetry and ACIST tubing and transducer :50 PM Physician arrived 15:50 :50 PM ASA Class CLASS II- Mild systemic disease (i.e. well-controlled diabetes, hypertension, asthma, cigarette smoking) :50 PM Meet and greet completed :50 PM Sign in performed according to hospital policy. :50 PM Procedure start 15:50 :50 PM Time: 15:50 Oxygen on at 2 L/min per nasal cannula by Jad Guzman RN [facility]:50 PM Time: 15:50 Patient comfortable and pain free: Yes 51 PM Time: 15:50LOC: 5 = Fully awake and oriented or at pre-proc level :51 PM Clinical Presentation: Unstable angina 03:54 PM Vitals capture started with the following parameters, Patient=Adult, Interval=5 min, Initial Tqtowcjh=327 mmHg, Deflation Rate=5 mmHg 03:55 PM Time: 15:55 Versed 2 mg Intravenous Given by Jad Guzman RN [facility] 03:55 PM Time: 15:55 Fentanyl 50 mcg Intravenous Given by Jad Guzman RN [facility] 03:55 PM HR=88 bpm, BIAD=613/70 mmhg, SpO2=98 %, Resp=6 B/min 03:59 PM Recorded ECG: HR=76 Condition=Condition 1 04:00 PM HR=81 bpm, FTMK=375/77 mmhg, WxL0=035.0 %, Resp=11 B/min 04:01 PM Case Delayed No tsites 04:03 PM Time: 16:03 Patient comfortable and pain free: Yes tsites 04:03 PM Time: 16:03LOC: 5 = Fully awake and oriented or at pre-proc level tsites 04:05 PM HR=73 bpm, WVML=748/72 mmhg, FuB4=281.0 %, Resp=9 B/min 04:09 PM Pressure channel 1 zeroed. 04:10 PM HR=75 bpm, UQHN=475/71 mmhg, SpO2=99 %, Resp=11 B/min 04:12 PM Time out performed according to hospital policy tsites 04:13 PM Time: 16:13 0.5 ml Lidocaine 2% to right radial Subcutaneous Given by Sina Oscar MD, [facility] tsites 04:13 PM Access obtained by percutaneous puncture. 5Fr 10cm Terumo Glidesheath sheath placed in right Radial artery. [id number] tsites 04:13 PM Time: 16:13 Patient given 4,000 units Heparin, 200 mcg Nitroglycerin, and 2.5 mg Verapamil Intraarterial by Sina Oscar MD, [facility] tsites 04:13 PM Time: 16:13 Versed 1 mg Intravenous Given by Jad Guzman RN tsites 04:13 PM Time: 16:13 Fentanyl 25 mcg Intravenous Given by Jad Guzman RN tsites 04:14 PM 0.035 260cm Navilyst 3mmJ wire [id number] tsites 04:15 PM 5Fr FR 4 catheter inserted over the wire [facility] tsites 04:15 PM HR=86 bpm, ORUI=740/74 mmhg, SpO2=99 %, Resp=17 B/min 04:15 PM RCA angiography performed in multiple views. tsites 04:16 PM Pressure channel 1 zeroed. 04:16 PM Pressure channel 1 zeroed. 04:16 PM wire reinserted catheter removed tsites 04:16 PM 5Fr FL3.5 catheter inserted over the wire [id number] tsites 04:17 PM LCA angiography performed in multiple views. tsites 04:18 PM Recorded Pressure: Ao, HR=72, Condition=Condition 1 (Aorta) Ao 109/84/97 04:18 PM Time: 16:03LOC: 4 = Oriented but drowsy tsites 04:18 PM Time: 16:03 Patient comfortable and pain free: Yes tsites 04:18 PM wire reinserted catheter removed tsites 04:19 PM 5Fr Pigtail catheter inserted over the wire [facility] tsites 04:19 PM Catheter selectively placed in left ventricle tsites 04:20 PM Bolus angiogram of left Ventricle complete: 10 ml/sec for a total of 20 mls tsites 04:20 PM HR=71 bpm, JJTY=382/67 mmhg, SpO2=99.0 %, Resp=11 B/min 04:20 PM Recorded Pressure: LV, HR=81, Condition=Condition 1 (Left Ventricle) LV 117/3/13 04:21 PM Recorded Pressure: LV, Ao, HR=84, Condition=Condition 1 (Left Ventricle) LV 115/4/16, (Aorta) Ao 111/76/91 04:21 PM Catheter removed tsites 04:21 PM Procedure completed at 16:21 tsites 04:22 PM Sign out completed: Radiation Dose 74.84 mGy Fluoro Time: 1.8 Isovue 370 - 200ml contrast 55 ml given by Sina Oscar MD, [facility]. Complications: NoneCardiac Rehab Consult needed: NoConfirmed administered medications: Yes tsites 04:22 PM Isovue 370 - 200ml,1 Bottle(s) used. tsites 04:22 PM Arterial sheath pulled, Vasc Band closure device used and was Successful S/N. tsites 04:23 PM 7 ml air in Vasc Band. tsites 04:23 PM Post ECG NSR tsites 04:23 PM Post Blood Pressure 116/67 tsites 04:23 PM 16:23 Post Pulses Rt Radial 1+ tsites 04:23 PM Information taught Cardiac Cath and Vasc Band tsites 04:23 PM Education needs Procedure, Plan of Care, and Responsibilities of Patient in Care tsites 04:24 PM Learning barriers :None tsites 04:24 PM Education Methods Verbal tsites 04:24 PM Education evaluation Able to repeat information tsites 04:24 PM Site status No bleeding/hematoma - Rt Wrist as reported by Kayla Su RT (R) at 16:24 tsites 04:24 PM Opsite applied tsites 04:25 PM Report given to ron PALUMBO Pt taken to 3B Room #14. 16:25 tsites 04:25 PM Vitals capture stopped. 04:26 PM Delay to floor No tsites 04:26 PM Patient out of room: 16:26 tsites 04:27 PM Family placed in consult room. tsites 04:28 PM Coronary Dominance: right tsites 04:28 PM Lesion found in 2nd Marginal. Pre Stenosis: 15 Pre LISSY Flow: tsites 04:28 PM Lesion found in Mid LAD. Pre Stenosis: 15 Pre LISSY Flow: tsites 04:28 PM Mid/Distal Left Anterior Descending Coronary Artery and diagonal branches with 15% stenosis. If graft is supplying this area, 0 % stenosis tsites Complications Complication None Hemodynamics Pressures Site Systolic/A Wave Diastolic/V Wave Mean AO 109 84 97 LV 117 3 13 LV 115 4 16 AO 111 76 91 Post Procedure Information Blood Pressure: 116/67 mmHg Rhythm: NSR Post procedural instructions were given Closure Device Time Device Success/Fail 08/02/2016 4:27:00 PM Mechanical Compression Successful Site Checks Time Location Status Staff Sheath In? Note 04:24 PM Rt Wrist No bleeding/hematoma Kayla Su RT (R) Pulses Time Site Pre-Procedure Post-Procedure Note 08/02/2016 3:48:00 PM Bilateral DP \\T\\ PT 2+ 08/02/2016 3:48:00 PM Bilateral radial 2+ 4:23:00 PM Rt Radial 1+ Updated by , RT (R) on 08/02/2016 4:30:22 PM , RT electronically signed on 08/02/2016 4:31:41 PM with status of Final
--- NOTE | 2016-08-02 16:40 | Event Note ---
Date of Encounter: 08/02/16 Time of Encounter: 16:30 - Cardiology Event Note C results discussed with Dr. Oscar, mild nonobstructive disease. Continue Flecanide. F/u with Cardiology, will s/o, reconsult PRN.
--- NOTE | 2016-08-02 16:42 | Invasive Diagnostic Lab ---
Name: Luis Brandon Date of Study: 08/02/2016 Date: 1950 Ht: 180.0 cm /70.9 in Medical Record#: [id number] Age: 65 Wt: 97. kg / 213.85 lb Account/Order#: [id number] Gender: Male BSA: 2.17 Order #: [id number] Fluoro Dose: 75 mGy BMI: 29.94 Procedure Physician: Sina Oscar MD, FACC Referring MD: Referring MD: Procedures Performed: LEFT HEART CATH Indications: Abnormal Test - Stress Impressions: Mild coronary artery disease. The left ventricle is normal and has normal contractility EF 65% Recommendations: Optimal medical therapy of patient's disease. Aggressive risk factor modification. History/Risk Factors: gerd renal dx SVT Chest pain positive stress test Procedure Access obtained in the right Radial artery by percutaneous puncture Complications: None Contrast: Isovue 55ml Closure Device: Mechanical Compression Hemodynamics: Pressures Site Systolic/ A Wave Diastolic/ V Wave End Diastolic/ Mean HR AO 109 84 97 72 LV 117 3 13 81 LV 115 4 16 85 AO 111 76 91 83 LV Ventriculography Ejection Method: LV Gram Ejection Fraction: 65% Wall Motion: MEDINA Anterobasal Normal Anterolateral Normal Apical: Normal Inferoapical Normal Inferobasal Normal Coronary Dominance: right Lesion Findings/Interventions * Left Main Coronary Artery The LMCA is angiographically free of disease. * Left Anterior Descending There is a 15% stenosis in the Mid LAD. * Circumflex There is a 15% stenosis in the 2nd Marginal. * Right Coronary Artery The RCA is angiographically free of disease. The Right PDA is angiographically free of disease. Updated by Clary Barahona RT (R) on 08/02/2016 4:31:00 PM Sina Oscar MD, FACC electronically signed on 08/02/2016 4:36:05 PM with status of Final
--- NOTE | 2016-08-02 19:11 | Discharge Summary ---
Date of Encounter: 08/02/16 Time of Encounter: 14:00 - Discharge Diagnosis (1) Chest pain, rule out acute myocardial infarction Priority: Primary Status: Acute Comments: Patient was at [place] ER yesterday with midsternal chest pressure without radiation. It was relieved with nitroglycerin 2. It lasted about 2 hours total patient declined admission. The nitroglycerin relieved the pain for about 4 hours, when he got home it started again. He came to our ER and again the pain was relieved with nitroglycerin. He reports shortness of breath the pressure is worse with movement such as sitting up, not necessarily exertion. He denies nausea or vomiting. At our ER he does state that the pain radiated to his right shoulder. He reports belching onset of all this pain after eating a muffin and then later in the day after eating a bowl of beef stew. He has a history of atrial fibrillation and is on flecainide and atenolol and is currently not anticoagulated. His troponins were negative 3. His echocardiogram showed LVEF of 65% and mild diastolic dysfunction. No evidence of pulmonary hypertension or valvular dysfunction. Patient had a stress test today that showed gated LVEF 60%, medium sized mild intensity reversible perfusion defect involving the basal apical inferior wall and apex. Due to his concern over flecainide and coronary artery disease, he is taken to the [facility]. He has mild nonobstructive disease and will continue with the flecainide. He is to follow-up with cardiology. (2) Dyspepsia and disorder of function of stomach Priority: Secondary Status: Acute Comments: Patient has a history of reflux disease. He does take proton pump inhibitor at home, omeprazole. He will continue this at home and I will add Carafate. He reports increasing GI symptoms and belching. He did have a gallbladder ultrasound today that shows cholelithiasis without evidence of cholecystitis and a fatty liver. The common bile duct was within normal limits, he did not have a sonographic Davis sign noted to have ascites. He has small calculus deposits at the neck of the gallbladder and there is no thickening. He will have outpatient referral to GI for possible EGD. (3) Belching symptom Priority: Secondary Status: Chronic Comments: Patient reports increased belching over the last week or so. This became more pronounced during his episode of left chest pain. We will continue to evaluate this with GI. (4) Gastroesophageal reflux disease Priority: Secondary Status: Chronic Comments: Chronic. Continue home medications and add Carafate. Qualifiers: Esophagitis presence: esophagitis presence not specified Qualified Code(s) : K21.9 - Gastro-esophageal reflux disease without esophagitis (5) Abnormal nuclear cardiac imaging test Priority: Secondary Status: Acute Comments: Patient had medium sized, mild intensity, reversible perfusion defect involving the basal apical inferior wall and apex. I was notified of this test by Dr. Barney. Since there is a contraindication to flecainide in a patient with CAD, he was taken to the [facility]. He will continue his flecainide and follow-up with cardiology in 1-2 weeks. He denies chest pain currently. - Discharge Medications Prescriptions: Rosuvastatin [Crestor] 20 mg PO HS #30 tablet Sucralfate [Carafate] 1 gm PO 0730,1630 #60 tablet Home Medications: Atenolol [Tenormin] 12.5 mg PO DAILY 07/16/16 [History] Docusate Sodium [Colace] 100 mg PO DAILY PRN 07/16/16 [History] Flecainide Acetate 150 mg PO BID 07/16/16 [History] Fluticasone Propionate Nasal [Flonase] 50 mcg NS DAILY PRN 07/16/16 [History] Omeprazole 20 mg PO BID PRN 07/16/16 [History] Montelukast [Singulair] 10 mg PO DAILY 08/01/16 [History] Tamsulosin [Flomax] 0.4 mg PO DAILY 08/01/16 [History] Aspirin 81 mg PO DAILY tab.chew 08/02/16 [Rx] Rosuvastatin [Crestor] 20 mg PO HS #30 tablet 08/02/16 [Rx] Sucralfate [Carafate] 1 gm PO 0730,1630 #60 tablet 08/02/16 [Rx] Allergies/Adverse Reactions: Allergies No Known Allergies Allergy (Verified 07/16/16 11:49) Procedures/tests Complete & Pending: Procedures Performed prior 72 hours Category Date Time Status Left Heart Cath [CL Cardiac Catheterization] [CL] [facility] 08/02/16 15:38 Completed Routine NM gena perf SPECT multi [NM] Routine Exams 08/02/16 08:28 Taken US gall bladder [US] Routine Exams 08/02/16 14:30 Completed ECG 12 lead ECG [ECG] Routine Y 08/03/16 07:00 Ordered ECG 12 lead ECG [ECG] Stat Y 08/02/16 07:22 Completed EV echocardiogram Routine Y 08/02/16 07:22 Completed SP exercise nuclear stress Routine Y 08/02/16 08:27 Completed Date of admission: 08/01/16 23:02 Primary care physician: Elizabeth Kim Consults: 08/02/16 11:37 Consult to Cardiology [CONS] Routine Comment: Consulting Provider: Ricarda Levy Reason for Consult: abnormal stress Time Notified: 11:37 Call Completed: Yes Discharging clinician: Amanda Ha Anticipated date of discharge: 08/02/16 - Patient Status Disposition: Home, Self-Care Functional capacity at discharge: independent ambulation Overall status at discharge: patient is progressing back to baseline - Discharge Instructions Follow Up With: Emmanuel Chand MD [Primary Care Provider] - 08/07/16 11:00 am Additional Instructions: Follow up with cardiology as scheduled Follow up with your family doctor within the next week Continue your normal home medications Return to ER as needed for any problems, concerns, or if your condition changes. - Diet and Activity Activity: increase activity as tolerated Diet: low fat, low cholesterol Hospital course: Mr. Brandon is a 65 year old male with a history of A. fib and reflux. He was seen after her ER yesterday for midsternal chest pressure without radiation at that time, this pain was relieved by nitroglycerin. It lasted for about 2 hours he was mildly short of breath, no nausea or vomiting. He reports that the pain was worse with movement such as Metamucil the bed. The pain was relieved for about 4 hours after his visit to [place] he went home and then started again. He did come to this year than in the pain was again relieved by nitroglycerin. This time the pain did radiate to his left shoulder. He reports a lot of belching during these episodes. He denies abdominal pain. His stress test today was abnormal and showed ischemia. Normally this would not be a concern, however, he does take flecainide and there is a contraindication to that and coronary artery disease. He was taken to the [facility] no stents were placed and he does have mild coronary artery disease. He will continue his flecainide and follow-up with cardiology. His echocardiogram had an LVEF of 65% mild diastolic dysfunction noted evidence of hyper tension and no significant valvular dysfunction. He did have a gallbladder ultrasound as well. He does have cholelithiasis without cholecystitis. He will be referred to GI for this, as well as his increasing GERD symptoms and belching. He has never had an upper GI before. He will continue his omeprazole and I will add Carafate twice a day. He is cleared by cardiology and ready for discharge. - Time Spent with Patient Total time spent providing and/or coordinating discharge services: - Constitutional Vitals: Temp Pulse Resp BP Pulse Ox 98.1 F 78 16 116/77 95 08/02/16 17:31 08/02/16 18:07 08/02/16 18:07 08/02/16 18:07 08/02/16 18:07 General appearance: Present: cooperative, A&O X 3, pleasant, no acute distress, obese, answers questions appropriately
[2016-08-02 19:30] VITALS: BP 112/72
[2016-08-03] MEDS ORDERED: *HR* Enoxaparin 40 MG/0.4 ML SYRINGE SQ SCH (06:00)
--- NOTE | 2016-08-03 09:07 | Electrocardiograph Report ---
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
== END 2016-08-02 20:05 | disposition home or self-care (01) ==
LOC: EMEROO 20:10 → 3BNU 20:10
PROVIDERS: ADMIT Internal Medicine; ATTEND Registered Nurse

== ENCOUNTER 2017-05-22 20:45 | Observation (INO) ==
[2017-05-22] MEDS ORDERED: 0.9 % Sodium Chloride 1,000 ML IVC ONE (20:58)
--- NOTE | 2017-05-22 21:15 | Emergency Department Note ---
Disposition Clinical Impression: Atrial fibrillation with rapid ventricular response Disposition: Admitted As Inpatient Condition: Good Referrals: Home Lu CNP [Primary Care Provider] - Forms: ED Satisfaction Letter Time of Disposition: 22:53 General Adult HPI - General Chief complaint: ED Arrhythmia/Palpitations Stated complaint: high heart rate hx of afib Time Seen by Provider: 05/22/17 20:57 Source: patient, family Limitations: no limitations Nursing Notes Reviewed: Yes Vital Signs Reviewed: Yes - History of Present Illness HPI Narrative: Patient is a 66-year-old male that presented to the emergency department for bradycardia. He states that he was at home and started to feel lightheaded and checked his heart rate was in the 30s. He had a family member who is a nurse check his heart rate was in the low 40s. Eventually after drinking some water it was in the 50s and felt that he should come to be evaluated. On his way here he felt his heart start to race and continue to beat fast. He states that he has a history of atrial fibrillation but is rarely in A. fib. States that he takes flecainide and atenolol for his A. fib. He states that he has not taken any of his medications today due to having a low heart rate earlier in the day. Patient denies any chest pain, shortness of breath or abdominal pain. Pain Scale: 0 - Related Data Home Medications Medication Instructions Recorded Confirmed Atenolol [Tenormin] 12.5 mg PO HS 07/16/16 10/25/16 Flecainide Acetate 150 mg PO BID 07/16/16 10/25/16 Fluticasone Propionate Nasal 50 mcg NS DAILY PRN 07/16/16 10/25/16 [Flonase] Montelukast [Singulair] 10 mg PO DAILY 08/01/16 10/25/16 Tamsulosin [Flomax] 0.4 mg PO DAILY 08/01/16 10/25/16 Omeprazole [PriLOSEC] 40 mg PO DAILY 10/25/16 10/25/16 Previous Rx's Medication Instructions Recorded Aspirin 81 mg PO DAILY tab.chew 08/02/16 Allergies Allergy/AdvReac Type Severity Reaction Status Date / Time No Known Allergies Allergy Verified 10/25/16 13:26 All systems ED: reviewed and negative except as stated. Cardiovascular: Reports: palpitations Respiratory: Denies: cough, dyspnea Gastrointestinal: Denies: abdominal pain, nausea, vomiting Neurological: Reports: other (Lightheadedness) Past Medical History - Past Medical History Medical history: Reports: arthritis, atrial fibrillation, GERD, GI bleed, renal disease, SVT, other Surgical history: Reports: other Psychiatric history: Reports: no psych history - Social History Smoking Status: Never smoker Smokeless Tobacco Status: No Alcohol use: Reports: none Drug use: Reports: none Physical Exam - General Limitations: no limitations General appearance: alert, in no apparent distress - Head Head exam: atraumatic, normocephalic - Eye Eye exam: Present: normal appearance, EOMI - Neck Neck exam: Present: normal inspection, full ROM, trachea midline - Respiratory Respiratory exam: Present: normal lung sounds bilaterally. Absent: respiratory distress, wheezes - Cardiovascular Cardiovascular exam: Present: tachycardia, irregular rhythm, normal heart sounds , +S1, +S2 - Abdominal Exam Abdominal exam: Present: soft, Non-Tender, normal bowel sounds - Neurological Exam Neurological exam: Present: alert, oriented X3 - Psychiatric Psychiatric exam: Present: normal affect, normal mood - Skin Skin exam: Present: warm, dry, intact Course - Reevaluation(s) Reevaluation #1: Patient still had elevated heart rate after return from x-ray so the patient was given 15mg of diltiazem. Time: 21:51 Reevaluation #2: Upon reevaluation patient states that he is feeling better after receiving the diltiazem. His heart rate is now in the 80s. Time: 22:37 Vital Signs Temperature 98.3 F 05/22/17 20:48 Pulse Rate 92 05/22/17 20:48 Respiratory Rate 18 05/22/17 20:48 Blood Pressure 115/74 05/22/17 20:48 O2 Sat by Pulse Oximetry 98 05/22/17 20:48 Temperature 98.3 F 05/22/17 20:48 Pulse Rate 80 05/22/17 21:50 Respiratory Rate 16 05/22/17 21:50 Blood Pressure 112/78 05/22/17 21:50 O2 Sat by Pulse Oximetry 97 05/22/17 21:50 Oxygen Delivery Oxygen Delivery Room Air Medical Decision Making - MDM Narrative Medical decision making narrative: Due to the patient having a history of atrial fibrillation and reporting bradycardia with no a rapid heart rate we will obtain a CBC, BMP, troponin and chest x-ray and EKG to evaluate this patient. Due to the patient having a cardiac arrhythmia there is concern for possible cardiac ischemia or precipitating event. X-ray showed no acute cardiopulmonary process. Patient had a negative troponin the remainder of the laboratory testing was unremarkable. Patient will need to be admitted to the hospital for further evaluation and management. I called and spoke with the hospitalist and they have accepted the patient to their service. The patient will be admitted to the hospital for further evaluation and management at this time. - Lab Data Lab results reviewed: Yes I reviewed the patient's lab results. Result diagrams: 05/22/17 21:15 05/22/17 21:15 Lab Results 05/22/17 05/22/17 05/22/17 Range/Units 21:15 21:15 21:15 WBC 6.3 (4.3-11.1) K/mcL RBC 4.80 (4.19-5.50) M/mcL Hgb 15.6 (12.9-16.9) g/dL Hct 45.2 (37.5-50.1) % MCV 94.2 (83.0-100.0) fL MCH 32.5 (28.0-33.3) pg MCHC 34.5 (31.6-35.5) g/dL RDW 12.6 (11.5-14.5) % Plt Count 153 (140-400) K/mcL MPV 10.5 (9.4-12.4) fL Immature Gran % 0.2 (0-4) % Seg Neutrophils % 52.2 % Lymphocytes % 37.5 % Monocytes % 7.0 % Eosinophils % 2.6 % Basophils % 0.5 % Neutrophils # 3.3 (1.6-8.9) K/mcL Lymphocytes # 2.4 (0.6-4.6) K/mcL Monocytes # 0.4 (0.0-1.3) K/mcL Eosinophils # 0.2 (0.0-0.6) K/mcL Basophils # 0.0 (0.0-0.2) K/mcL Sodium 139 (136-145) mEq/L Potassium 4.2 (3.5-5.1) mEq/L Chloride 110 H (98-107) mEq/L Carbon Dioxide 22 L (23-29) mEq/L BUN 14 (8-23) mg/dL Creatinine 0.96 (0.70-1.30) mg/dL Est GFR ( Amer) > 60 (> 60) Est GFR (Non-Af Amer) > 60 (> 60) BUN/Creatinine Ratio 15 (6-26) Glucose 99 (70-105) mg/dL Calculated Osmolality 289 (280-300) Calcium 9.4 (8.6-10.3) mg/dL Troponin I < 0.03 (< 0.04) ng/mL - Radiology Data Radiology results reviewed: Yes I reviewed the patient's radiology results. Chest X-Ray 05/22/17 20:59 IMPRESSION: No acute cardiopulmonary disease. D/ / Ace Jaime MD / Ace Jaime MD Interpreting Provider: Ace Jaime MD - EKG Data EKG #1 EKG attestation: Yes I reviewed and interpreted this EKG. EKG results narrative: EKG showed atrial fibrillation with rapid ventricular response at a rate of 126 bpm, QRS duration of 90, QTc of 369. No STEMI is noted on this EKG this was compared to previous EKG on 08/02/16 which showed sinus bradycardia at a rate of 58 bpm.
[2017-05-22 21:24] LABS: Basophils % 0.5 %; Eosinophils # 0.2 K/mcL (0.0-0.6); Eosinophils % 2.6 %; Hematocrit 45.2 % (37.5-50.1); Hemoglobin 15.6 g/dL (12.9-16.9); Immature Granulocytes % 0.2 % (0-4); Lymphocytes # 2.4 K/mcL (0.6-4.6); Lymphocytes % 37.5 %; Mean Corpuscular HGB Conc 34.5 g/dL (31.6-35.5); Mean Corpuscular Hemoglobin 32.5 pg (28.0-33.3); Mean Corpuscular Volume 94.2 fL (83.0-100.0); Mean Platelet Volume 10.5 fL (9.4-12.4); Monocytes # 0.4 K/mcL (0.0-1.3); Neutrophils # 3.3 K/mcL (1.6-8.9); Platelet Count 153 K/mcL (140-400); Red Cell Distribution Width 12.6 % (11.5-14.5); Segmented Neutrophils % 52.2 %
--- NOTE | 2017-05-22 21:35 | Emergency Department Note ---
START Narrative - START START: I examined this patient and my medical decision-making was reviewed with the [employer] ATTENDANT/PA/Advanced Practice Nurse/Resident Physician. I agree with the documented findings, disposition and treatment plan as described except to the extent set forth below. ED attending note: Patient seen with emergency medicine resident Dr. Felice Phillips. We independently evaluated the patient. We independently had face-to -face contact with the patient. Please see a copy of his note for details of the history and physical, evaluation, management and disposition of this emergency Department patient. Briefly: 66-year-old history of A. fib on flecainide and all. Presents with palpitations and feeling lightheaded before arrival. He was on his way when this happened because he swallowed rate was a little lower today in the 30s and 40s never been that low and he was concerned about that. He is A. fib with RVR in the 120s here. Physical examination is benign patient's getting a liter of saline screening labs. Disposition pending
[2017-05-22 21:41] LABS: BUN/Creatinine Ratio 15 (6-26); Blood Urea Nitrogen 14 mg/dL (8-23); Calcium 9.4 mg/dL (8.6-10.3); Carbon Dioxide 22 mEq/L (23-29); Chloride 110 mEq/L (98-107); Glucose 99 mg/dL (70-105); Osmolality,Calculated 289 (280-300); Potassium 4.2 mEq/L (3.5-5.1); Sodium 139 mEq/L (136-145); eGFR For African Americans > 60 (> 60); eGFR For Non-African Americans > 60 (> 60)
[2017-05-23] MEDS ORDERED: *HR* Morphine 2 MG/ML SYRINGE IVP PRN (04:42)
[2017-05-23] MEDS ORDERED: Acetaminophen 325 MG TABLET PO PRN (04:42)
[2017-05-23] MEDS ORDERED: Naloxone 0.4 MG/ML INJ IVP PRN (04:42)
[2017-05-23] MEDS ORDERED: Fluticasone Propionate Nasal 50 MCG/SPRAY BOTTLE NS PRN (04:46)
--- NOTE | 2017-05-23 04:59 | Internal Med History&Physical ---
Date of Encounter: 05/23/17 Time of Encounter: 04:10 Assessment and Plan (1) Symptomatic bradycardia Current visit: Yes Status: Acute 1. Patient asymptomatic now. 2. HR 40-50's on exam. 3. Will hold BB and Flecainide this morning and consult cardiology. 4. Check and correct electrolytes as necessary. 5. Monitor on telemetry and vital signs. If BP becomes unstable, he may need dopamine infusion. (2) CAD (coronary artery disease) Current visit: Yes Status: Chronic 1. Patient had [facility] last year with minimal CAD and no need for itnervention. 2. Will trend troponins and EKG's. 3. Patient denies any anginal symptoms. Qualifiers: Coronary Disease-Associated Artery/Lesion type: [place] artery [place] vs. transplanted heart: [place] heart Associated angina: without angina Qualified Code(s): I25.10 - Atherosclerotic heart disease of [place] coronary artery without angina pectoris (3) PAF (paroxysmal atrial fibrillation) Current visit: No Status: Acute 1. Patient received one dose of Cardizem in ER with rate/rhythm control. Patient now bradycardic. 2. Consult cardiology for further guidance. (4) DVT prophylaxis Current visit: Yes Status: Acute 1. Heparin SQ. Internal Medicine - H&P: HPI Chief complaint: slow heart rate; fast heart rate Admitted From: Emergency Dept Plans for Post Hospital Care: Home History of present illness: Mr. Brandon is a 66 year old male who presents to ER today with complaints of symptomatic bradycardia. He noticed his heart rate dropping down to 30s and 40s on a wrist monitor/BP cuff. He was feeling lightheaded and dizzy. His daughter (ICU nurse) checked his pulse by manual palpation of the radial artery and confirmed that his heart rate was in the 40s. Because of his bradycardia and symptomatic nature of it, he was brought to ER. However, before he arrived to the ER, he developed palpitations, racing heartbeats, and further lightheadedness and dizziness. He presented to ER and was found to have evidence of atrial fibrillation with rapid ventricular response. He was given a one-time dose of diltiazem 15 mg IV push with significant improvement of symptoms. He was then admitted to hospitalist service. Upon my assessment of the patient, he is sleeping and easily arousable. He denies any complaints. He has no chest pain, shortness breath, palpitations, or racing heartbeats at the present time. He and both confirm that he takes metoprolol and flecainide for his atrial fibrillation. He has had no medication adjustment recently. He denies any prior episode of tachybradycardia symptoms. He follows with [facility]. However, he has not seen Dr. Benjy Jones or any other electrophysiologists before. Past Med Surg Social Fam HX - Past Medical History Attestation: Yes The following information was validated with the patient. Source: patient, old records reviewed, obtained from family Medical history: arthritis, atrial fibrillation, GERD, GI bleed, SVT Psychiatric history: no psych history - Past Surgical History Surgical History: angioplasty/stent - Social History Smoking Status: Never smoker Smokeless Tobacco Status: No Alcohol use: none Drug use: none Current living situation: Home, With Family Activity Level: Independent ambulation Recent Out of Country Travel Within the Last 8 Weeks: No - Family History Mother Living Status: Hx Family Cardiac Disorders: Yes (CHF) Sister Hx Family Cardiac Disorders: Yes (PACER/AFIB) Father Living Status: Hx Family Cardiac Disorders: Yes ([place]) Internal Medicine - H&P: Meds Atenolol [Tenormin] 12.5 mg PO HS 07/16/16 [History] Flecainide Acetate 150 mg PO BID 07/16/16 [History] Fluticasone Propionate Nasal [Flonase] 50 mcg NS BID PRN 07/16/16 [History] Montelukast [Singulair] 10 mg PO QPM 08/01/16 [History] Tamsulosin [Flomax] 0.4 mg PO DAILY 08/01/16 [History] Aspirin 81 mg PO DAILY tab.chew 08/02/16 [Rx] Omeprazole [PriLOSEC] 40 mg PO DAILY 10/25/16 [History] 3 Allergy/AdvReac Type Severity Reaction Status Date / Time No Known Allergies Allergy Verified 10/25/16 13:26 - Constitutional Constitutional: no chills, no fever(s) - EENT Eyes: no blurry vision, no change in vision Ears: no ear pain, no tinnitus Nose, mouth and throat: no sinus pain, no sinus pressure - Cardiovascular Cardiovascular ROS IM: irregular heart rhythm, lightheadedness, palpitations, no chest pain, no dyspnea - Respiratory Respiratory: no dyspnea, no hemoptysis, no wheezing - Gastrointestinal Gastrointestinal: no abdominal pain, no diarrhea, no nausea, no vomiting - Genitourinary Genitourinary ROS male: no dysuria, no flank pain, no hematuria - Musculoskeletal Musculoskeletal ROS IM: no arthralgias, no myalgias - Integumentary Integumentary IM: no rash, no jaundice - Neurological Neurological ROS: dizziness, no focal weakness, no frequent falls, no headache(s ) - Psychiatric Psychiatric: no anxiety, no depression - Endocrine Endocrine IM: no polydipsia, no polyuria - Hematologic/Lymphatic Hematologic/Lymphatic: no easy bruising, no lymphadenopathy - Allergic/Immunologic Allergic/Immunologic: no wheezing, no GI upset with certain foods - Constitutional Vitals: Temp Pulse Resp BP Pulse Ox 97.8 F 71 16 107/75 98 05/23/17 01:31 05/23/17 01:31 05/23/17 01:31 05/23/17 01:31 05/23/17 01:31 General appearance: Present: cooperative, A&O X 3, pleasant, no acute distress - Head Head exam: Present: normal inspection - Eye Eye exam: Present: EOMI, PERRL. Absent: scleral icterus Pupils: Present: normal accommodation - ENT ENT exam: Present: mucous membranes moist, normal exam - Neck Neck exam general surgery: Present: full ROM, supple. Absent: tenderness - Respiratory Respiratory exam: Present: CTAB. Absent: chest wall tenderness, rales, respiratory distress, rhonchi, wheezes - Cardiovascular Cardiovascular exam: Present: bradycardia, +S1, +S2. Absent: diastolic murmur, JVD, systolic murmur Additional comments: HR 40-50 on palpation and auscultation; irregular at times - GI/Abdominal GI/Abdominal exam: Present: normal bowel sounds, soft. Absent: hepatomegaly, mass, splenomegaly, tenderness - Extremities Exam Extremities exam: Present: full ROM, warm. Absent: calf tenderness, radial pulses palpable and symmetrical - Back Exam Back exam: Absent: CVA tenderness (L), CVA tenderness (R) - Neurological Exam Neurological exam: Present: alert, oriented X3, no focal deficits - Psychiatric Psychiatric exam: Present: normal affect, normal mood - Skin Skin exam: Present: dry, warm. Absent: rash Internal Med - H&P Results - Labs CBC & Chem 7: 05/22/17 21:15 05/22/17 21:15 - EKG Data -: EKG Interpreted by Myself - EKG Data Prior EKG available for review: yes When compared to previous EKG: there are significant changes EKG comments: 05/23/17 05:27 Atrial Fibrillation with RVR - Diagnostic Studies Chest x-ray Status: image reviewed by me (negative)
[2017-05-23] MEDS ORDERED: *HR* Heparin 5,000 UNIT/ML VIAL SQ SCH (06:00)
[2017-05-23 06:47] LABS: INR 1.1
[2017-05-23 06:49] LABS: Activated Partial Thrombo Time 32.6 Seconds (26.0-36.0)
[2017-05-23 07:22] LABS: Alanine Aminotransferase 11 Units/L (7-52); Albumin 3.8 g/dL (3.5-5.7); Albumin/Globulin Ratio 1.7 (1.1-2.2); Alkaline Phosphatase 47 Units/L (34-104); Aspartate Amino Transferase 15 Units/L (13-39); BUN/Creatinine Ratio 13 (6-26); Bilirubin,Total 0.8 mg/dL (0.3-1.0); Blood Urea Nitrogen 12 mg/dL (8-23); Calcium 8.9 mg/dL (8.6-10.3); Carbon Dioxide 25 mEq/L (23-29); Chloride 112 mEq/L (98-107); Chol/HDL Ratio 2.1 (0-4.9); Cholesterol 106 mg/dL (< 200); Globulin 2.3 g/dL (2.4-3.5); Glucose 81 mg/dL (70-105); HDL Cholesterol 50 mg/dL (40-59); LDL Cholesterol,Calculated 48 mg/dL (0-99); Magnesium 2.1 mg/dL (1.6-2.6); Osmolality,Calculated 293 (280-300); Potassium 4.1 mEq/L (3.5-5.1); Sodium 142 mEq/L (136-145); Total Protein 6.1 g/dL (6.4-8.9); Triglycerides 42 mg/dL (< 150); eGFR For African Americans > 60 (> 60); eGFR For Non-African Americans > 60 (> 60)
[2017-05-23] MEDS ORDERED: Aspirin 81 MG TAB.CHEW PO SCH (09:00)
--- NOTE | 2017-05-23 12:37 | Cardiology Consult Note ---
<Nikita Curry - Last Filed: 05/23/17 16:01> Date of Encounter: 05/23/17 Time of Encounter: 12:35 Assessment and Plan (1) PAF (paroxysmal atrial fibrillation) Current Visit: No Status: Acute Per EP: Known history of paroxysmal atrial fibrillation on Flecainide 150 mg by mouth twice a day and Atenolol 25 mg half a tablet by mouth daily. ECG showed A. fib in the 120s to 130s, tele reviewed showed sinus rhythm and PACs and occasional aflutter. Lowest HR 41 with aflutter converting to SR, HR now SR with PACs 70' s. Reports compliance with meds at home. Had been on Flecanide for about 13 yrs. 1st noted failed therapy. Echo July 2016 showed EF 65%, mild diastolic dysfunction, normal RV size and function, no significant valvular dysfunction, and no pulmonary hypertension, NSWMA. Had abnormal stress test July 2016 with catheterization at that time showing nonobstructive CAD with mid LAD 15% and OM 2 15% lesions. Chest pain free. Troponins negative 3. Magnesium and TSH stable. Discussed and reviewed with Dr. Benjy Jones, recommend continue current medical regimen and follow-up in outpatient setting for discussion of possible ablation if clinically warranted. Patient will wear 48 hr holter monitor at discharge. Resume previous home meds. Patient and agreeable to plan. All questions answered. Cardiology will sign off, reconsult as needed, follow-up scheduled. Regarding long-term anticoagulation, currently on aspirin only. Continue the current regimen, if were to proceed with ablation may need more potent anticoagulation. (2) CAD (coronary artery disease) Current Visit: Yes Status: Chronic Per EP: History of nonobstructive disease. Qualifiers: Coronary Disease-Associated Artery/Lesion type: [place] artery [place] vs. transplanted heart: [place] heart Associated angina: without angina Qualified Code(s): I25.10 - Atherosclerotic heart disease of [place] coronary artery without angina pectoris Discussion w patient/family: The assessment and plan as outlined above was discussed with the patient and/or family members who expressed understanding and agreement. All questions were answered. Thank you for involving us in the care of your patient. Please call with any questions. History of Present Illness Consult date: 05/23/17 (This will be EP CONSULT) Requesting physician: Elder Sepulveda Consult reason: Bradycardia, Afib RVR Chief complaint: Dizziness History of present illness: ELECTROPHYSIOLOGY CONSULT Mr. Brandon is a 66 year old male with a relevant past medical history of paroxysmal atrial fibrillation/flutter, nonobstructive CAD, GERD. Previous is seen by Dr. Barney. I last saw patient April 2017. Cardiology consult for concerns of bradycardia and A. fib with RVR. Patient reports yesterday evening while at his computer developed dizziness and noted heart rates in the 30s to 40s. Patient recently to ER found to be A. fib with RVR in the 120s to 130s. Currently denies any dizziness. He denied any chest pain, short of breath, palpitations. He denies any recent infectious process and denies any fever, chills, cough, nausea, vomiting, diarrhea. He does report yesterday during this event he did "feel somewhat chilled". Reports compliance of medications and not missed any doses. He denied any syncopal events. He denies any active bleeding or blood loss. Past Med Surg Social Fam HX - Past Medical History Attestation: Yes The following information was validated with the patient. Source: patient, old records reviewed, obtained from family Medical history: arthritis, atrial fibrillation, GERD, GI bleed, SVT Psychiatric history: no psych history - Past Surgical History Surgical History: angioplasty/stent - Social History Smoking Status: Never smoker Smokeless Tobacco Status: No Alcohol use: none Drug use: none - Family History Mother Living Status: Hx Family Cardiac Disorders: Yes (CHF) Sister Hx Family Cardiac Disorders: Yes (PACER/AFIB) Father Living Status: Hx Family Cardiac Disorders: Yes ([place]) Medications and Allergies Atenolol [Tenormin] 12.5 mg PO HS 07/16/16 [History] Flecainide Acetate 150 mg PO BID 07/16/16 [History] Fluticasone Propionate Nasal [Flonase] 50 mcg NS BID PRN 07/16/16 [History] Montelukast [Singulair] 10 mg PO QPM 08/01/16 [History] Tamsulosin [Flomax] 0.4 mg PO DAILY 08/01/16 [History] Aspirin 81 mg PO DAILY tab.chew 08/02/16 [Rx] Omeprazole [PriLOSEC] 40 mg PO DAILY 10/25/16 [History] 3 Allergy/AdvReac Type Severity Reaction Status Date / Time No Known Allergies Allergy Verified 10/25/16 13:26 All Systems Review: A 10-system review of systems was performed and is negative for pertinent findings except as documented above in the HPI. - Cardiovascular Cardiovascular: as per HPI, lightheadedness Physical Examination Vital Signs, Last 4 Hours Temp Pulse Resp BP Pulse Ox 05/23/17 11:00 94 05/23/17 10:45 98.5 F 53 18 110/66 97 General: Conversant, No Apparent Distress HEENT: Atraumatic, Normocephaly, Mucus Membranes Moist Neck: No JVD, Normal carotid pulses Cardiac: Reg Rate and Rhythm, Normal S1 and S2, No Murmur Lungs: Normal Breath Sounds, No Wheeze, Rales, Rhonchi Neuro: Alert and responsive, No focal deficits noted Abdomen: Soft, Non-Tender Skin: No rashes noted on visualized skin Musculoskeletal: No Chest Wall Tenderness Extremities: No Clubbing, No Cyanosis, No Edema, Normal Pulses Results 05/22/17 21:15 05/23/17 04:55 Lab Results Laboratory Tests 05/22/17 05/23/17 05/23/17 21:15 04:55 04:55 INR 1.1 Creatinine 0.95 Est GFR (Non-Af Amer) > 60 Magnesium 2.1 AST 15 ALT 11 Troponin I < 0.03 LDL Cholesterol, Calc 48 05/23/17 05/23/17 04:55 11:40 INR Creatinine Est GFR (Non-Af Amer) Magnesium AST ALT Troponin I < 0.03 < 0.03 LDL Cholesterol, Calc ITS Impressions Chest X-Ray 05/22/17 20:59 IMPRESSION: No acute cardiopulmonary disease. D/ / Ace Jaime MD / Ace Jaime MD Interpreting Provider: Ace Jaime MD Active Medications Acetaminophen (Tylenol) 650 mg PO Q6HR PRN PRN Reason: Mild Pain (1-3) Stop: 11/22/17 04:43 Aspirin (Aspirin) 81 mg PO DAILY YANE Stop: 11/22/17 09:01 Last Admin: 05/23/17 09:30 Dose: 81 mg Docusate Sodium (Colace) 100 mg PO BID PRN PRN Reason: Constipation Stop: 11/22/17 04:43 Fluticasone Propionate (Flonase) 50 mcg NS BID PRN; Protocol PRN Reason: Allergy Symptoms Stop: 11/22/17 04:47 Heparin Sodium (Porcine) (Heparin) 5,000 unit SQ Q12HCO YANE Stop: 11/22/17 06:01 Last Admin: 05/23/17 05:50 Dose: 5,000 unit Montelukast Sodium (Singulair) 10 mg PO QPM YANE Stop: 11/22/17 18:01 Morphine Sulfate (Morphine Sulfate) 2 mg IVP Q4HR PRN PRN Reason: Chest Pain Stop: 11/22/17 04:43 Naloxone HCl (Narcan) 0.4 mg IVP Q2MIN PRN PRN Reason: Opioid Reversal Stop: 11/22/17 04:43 Omeprazole (Prilosec) 20 mg PO DAILY YANE Stop: 11/22/17 09:01 Last Admin: 05/23/17 09:30 Dose: 20 mg Tamsulosin HCl (Flomax) 0.4 mg PO HS YANE PRN Reason: Protocol Stop: 11/22/17 09:01 - Imaging and Cardiology Stress Test: report reviewed Echo: report reviewed Cardiac cath: report reviewed - EKG Interpretation EKG results cardiology: personally reviewed (afib RVR 120's), other (Currently sinus rhythm 70s with PACs on telemetry) Consult Discharge Plan - Plan Referrals: Home Lu, CARDIOGRAPHER [Primary Care Provider] - <Benjy Jones - Last Filed: 05/23/17 17:12> Date of Encounter: 05/23/17 - Attending Attestation I have personally performed a face to face evaluation on this patient. I have reviewed and agree with the care plan. History and Exam by me shows: PAF, has been mostly controlled on flecainide. At this point will continue current meds and f/u as outpt. to discuss cryoablation for AF. Assessment and Plan Discussion w patient/family: The assessment and plan as outlined above was discussed with the patient and/or family members who expressed understanding and agreement. All questions were answered. Thank you for involving us in the care of your patient. Please call with any questions. History of Present Illness History of present illness: Mr. Brandon is a 66 year old male All Systems Review: A 10-system review of systems was performed and is negative for pertinent findings except as documented above in the HPI. Physical Examination Vital Signs, Last 4 Hours Temp Pulse Resp BP Pulse Ox 05/23/17 16:06 98.0 F 66 16 142/66 94 Results 05/22/17 21:15 05/23/17 04:55 Lab Results 05/23/17 05/23/17 05/23/17 04:55 04:55 04:55 INR 1.1 APTT 32.6 Sodium 142 Potassium 4.1 Chloride 112 H Carbon Dioxide 25 BUN 12 Creatinine 0.95 Glucose 81 Calcium 8.9 Magnesium 2.1 Total Bilirubin 0.8 AST 15 ALT 11 Alkaline Phosphatase 47 Troponin I < 0.03 05/23/17 11:40 INR APTT Sodium Potassium Chloride Carbon Dioxide BUN Creatinine Glucose Calcium Magnesium Total Bilirubin AST ALT Alkaline Phosphatase Troponin I < 0.03
[2017-05-23 16:07] VITALS: BP 142/66
--- NOTE | 2017-05-23 17:28 | Discharge Summary ---
Date of Encounter: 05/23/17 Time of Encounter: 09:00 - Discharge Diagnosis (1) PAF (paroxysmal atrial fibrillation) Priority: Primary Status: Chronic Comments: Known history of P ARossy garcia. He takes flecainide 150 mg by mouth twice a day, atenolol 12.5 mg by mouth daily. Patient reported fluctuations in blood pressure at home as well as fluttering in his chest. He presented to the emergency room was found to be in A. fib with a rate in the 120s and 130s. Telemetry shows sinus rhythm with frequent PACs and occasional A flutter that with palpation made pulse in the 40s. She has been evaluated by cardiology. Heart rate is sinus rhythm with PACs in the 70s. Patient had been on flecainide for 13 years, this is the first time he has been out of rhythm. He has been chest pain-free. Troponins were negative 3. Labs are stable within normal limits. Cardiology has recommended continuing current medications and follow-up with him in the clinic to discuss possible ablation. Patient will wear a 48 hour Holter monitor and resume all other previous home medications. Currently, patient is only on aspirin, at some point if there is no lesion, patient may have to be on longer term anticoagulation. (2) Symptomatic bradycardia Priority: Secondary Status: Acute Comments: Resolved. Patient's now sinus rhythm with infrequent PACs. Patient will wear a Holter monitor and follow-up with cardiology. Continue home medications. (3) CAD (coronary artery disease) Priority: Secondary Status: Chronic Comments: Patient denies chest pain. Patient had stress test in July, that was abnormal, LHC at that time showed nonobstructive disease. Echocardiogram at the same time should not reserved EF with mild LV DD and no significant valvular dysfunction. Continue home medications. Qualifiers: Coronary Disease-Associated Artery/Lesion type: [place] artery [place] vs. transplanted heart: [place] heart Associated angina: without angina Qualified Code(s): I25.10 - Atherosclerotic heart disease of [place] coronary artery without angina pectoris (4) DVT prophylaxis Priority: Secondary Status: Acute Comments: Heparin subcutaneous twice a day. - Discharge Medications Home Medications: Atenolol [Tenormin] 12.5 mg PO HS 07/16/16 [History] Flecainide Acetate 150 mg PO BID 07/16/16 [History] Fluticasone Propionate Nasal [Flonase] 50 mcg NS BID PRN 07/16/16 [History] Montelukast [Singulair] 10 mg PO QPM 08/01/16 [History] Tamsulosin [Flomax] 0.4 mg PO DAILY 08/01/16 [History] Aspirin 81 mg PO DAILY tab.chew 08/02/16 [Rx] Omeprazole [PriLOSEC] 40 mg PO DAILY 10/25/16 [History] Allergies/Adverse Reactions: 3 Allergy/AdvReac Type Severity Reaction Status Date / Time No Known Allergies Allergy Verified 10/25/16 13:26 Procedures/tests Complete & Pending: Procedures Performed prior 72 hours Category Date Time Status ECG 12 lead ECG [ECG] AM 0600 Y 05/23/17 06:00 Ordered ECG 48 holter monitor setup [ECG] Routine Y 05/23/17 14:58 Ordered Date of admission: 05/23/17 00:58 Primary care physician: Home Lu CNP Consults: 05/23/17 04:44 Consult to Physician [CONS] Routine Consulting Provider: Dejah Moya Reason for Consult: symptomatic bradycardai; h/o A. Fib; on Flecainide Call Completed: No Discharging clinician: Amanda Ha Anticipated date of discharge: 05/23/17 - Patient Status Disposition: Home, Self-Care Condition: Good Functional capacity at discharge: independent ambulation Overall status at discharge: patient is back to baseline - Discharge Instructions Follow Up With: Home Lu CNP [Primary Care Provider] - Additional Instructions: Wear Holter monitor as ordered. Follow-up with cardiology as scheduled. Resume your normal medications at home. Resume your normal activities and diet as tolerated. Return to the emergency department as needed for any other problems or concerns , or if your symptoms return or worsen. - Diet and Activity Activity: increase activity as tolerated Diet: diabetic diet, low fat, low cholesterol Hospital course: Mr. Brandon is a 66 year old male with significant cardiac history, history of A. fib. Presented to the emergency room with labile blood pressure, was found to be an A. fib with rate in 120s 130s. Patient was given Cardizem. He has been seen by cardiology, he will wear a Holter monitor and follow up with cardiology in the office with a would discuss a possible ablation. Patient is normal sinus rhythm with occasional PACs he denies chest pain. He will continue his normal home medications. Please see assessment and plan for hospital course. - Time Spent with Patient Total time spent providing and/or coordinating discharge services: Less than 30 minutes - Constitutional Vitals: Temp Pulse Resp BP Pulse Ox 98.0 F 66 16 142/66 94 05/23/17 16:06 05/23/17 16:06 05/23/17 16:06 05/23/17 16:06 05/23/17 16:06 General appearance: Present: cooperative, A&O X 3, pleasant, no acute distress, answers questions appropriately - Head Head exam: Present: atraumatic, normal inspection, normocephalic - Eye Eye exam: Present: normal appearance, conjuntiva pink, sclera anicteric - Neck Neck exam general surgery: Present: supple, trachea midline. Absent: lymphadenopathy - Respiratory Respiratory exam: Present: CTAB. Absent: accessory muscle use, chest wall tenderness, rales, respiratory distress, rhonchi, wheezes - Cardiovascular Cardiovascular exam: Present: RRR, +S1, +S2. Absent: diastolic murmur, gallop, rubs, systolic murmur, tachycardia - GI/Abdominal GI/Abdominal exam: Present: normal bowel sounds, soft, no peritoneal signs. Absent: distended, hepatomegaly, tenderness - Extremities Exam Extremities exam: Present: normal capillary refill, normal inspection, warm, radial pulses palpable and symmetrical. Absent: calf tenderness, cyanotic, pedal edema - Neurological Exam Neurological exam: Present: alert, oriented X3, no focal deficits. Absent: facial droop, speech deficit - Skin Skin exam: Present: dry, intact, normal color, warm. Absent: rash
--- NOTE | 2017-05-24 10:06 | Electrocardiograph Report ---
[place] [id number] Test Date: 2017-05-22 Pat Name: Luis Brandon Department: 104 Room: 3B43 Gender: M Diversional Therapist: LUIS ALBERTO : 1950 Requested By: William Sherman Order Number: [id number] Reading MD: Fritz Harding DO Measurements Intervals [place] Rate: 126 P: SD: 0 QRS: -17 QRSD: 90 T: 29 QT: 294 QTc: 369 Interpretive Statements ATRIAL FIBRILLATION WITH RAPID VENTRICULAR RESPONSE Electronically Signed On 05-24-2017 10:05:25 EST by Fritz Harding DO
== END 2017-05-23 17:57 | disposition home or self-care (01) ==
LOC: EMEROO 20:45 → 3BNU 20:45
PROVIDERS: ADMIT Registered Nurse; ATTEND Registered Nurse

== ENCOUNTER 2018-01-29 20:31 | Inpatient (IN) ==
--- NOTE | 2018-01-29 21:13 | Emergency Department Note ---
Disposition Clinical Impression: Atrial fibrillation, Palpitations Disposition: Admitted As Inpatient Condition: Good Time of Disposition: 01:02 Arrhythmia/Palpitations HPI - General Chief Complaint: ED Arrhythmia/Palpitations Stated Complaint: afib Time Seen by Provider: 01/29/18 20:49 Source: patient Limitations: no limitations Nursing Notes Reviewed: Yes Vital Signs Reviewed: Yes - History of Present Illness HPI Narrative: 67-year-old male presents from home for evaluation of his atrial fibrillation. One hour prior to arrival, patient had sensation of palpitations and a funny feeling in his head. Consistent with prior episodes of A. fib RVR. History of paroxysmal A. fib. Had ablation in July of this year. Previously was on flecainide 150 mg twice a day with atenolol 25 mg daily. This was causing skipped beats. 2 weeks ago, these medications were stopped and he was started on Cardizem 120 mg daily. He follows with his ear nose throat surgeon, Dr. Benjy Jones. Patient has had atrial fibrillation for 17 years. ROS: Positive: As above Negative: Fever, chills, nausea, vomiting, chest pain, dyspnea, diaphoresis, abdominal pain, changes in bowel or bladder habits - Related Data Home Medications Medication Instructions Recorded Confirmed Atenolol [Tenormin] 12.5 mg PO HS 07/16/16 09/09/17 Flecainide Acetate 150 mg PO BID 07/16/16 09/09/17 Fluticasone Propionate Nasal 50 mcg NS BID PRN 07/16/16 09/09/17 [Flonase] Tamsulosin [Flomax] 0.4 mg PO DAILY 08/01/16 09/09/17 Omeprazole [PriLOSEC] 40 mg PO DAILY 10/25/16 09/09/17 Docusate Sodium [Stool Softener] 100 mg PO BID PRN 07/21/17 09/09/17 Rivaroxaban [Xarelto] 20 mg PO DAILY 07/21/17 09/09/17 Previous Rx's Medication Instructions Recorded Aspirin 81 mg PO DAILY tab.chew 08/02/16 Allergies Allergy/AdvReac Type Severity Reaction Status Date / Time No Known Allergies Allergy Verified 06/27/17 18:06 All systems ED: reviewed and negative except as stated. Review of Systems: As Per HPI Past Medical History - Past Medical History Medical history: Reports: arthritis, atrial fibrillation, GERD, GI bleed, glaucoma, SVT Surgical history: Reports: angioplasty/stent, cholecystectomy Psychiatric history: Reports: no psych history - Social History Smoking Status: Never smoker Smokeless Tobacco Status: No Alcohol use: Reports: none Drug use: Reports: none Physical Exam Vital Signs Reviewed General: Patient is alert, oriented, and in no acute distress. Head: atraumatic, normocephalic Eye: normal appearance, no scleral icterus, no conjunctival injection ENT: mucous membranes moist, normal external ear exam Neck: normal inspection, trachea midline, full ROM Chest: normal inspection, symmetric chest rise Respiratory: Good respiratory effort. Bilateral breath sounds are clear without wheezing, crackles, or rhonchi. Cardiovascular: Tachycardic rate and irregular rhythm. No clicks, rubs, gallops , or murmors. Normal heart sounds. Abdomen: Bowel sounds present normoactive x-4 quadrants. Abdomen is soft, nondistended, and nontender. No guarding or rebound. No organomegaly noted. Musculoskeletal: Spontaneously moving all extremities. Skin: warm, dry, intact. Neuro: Alert and oriented x4. Sensation light touch intact. Psych: Patient's affect is appropriate for situation. - General Limitations: no limitations General appearance: alert, in no apparent distress Course Course Narrative: Patient presents in atrial fibrillation with rapid ventricular rate. We will begin Cardizem drip and monitor systolic blood pressure while in A. fib. Patient given 10 mg IV bolus of Cardizem followed by drip. Heart rate improved to 78 with blood pressure remained stable above 100. He was provided 1 L normal saline bolus. I discussed the above the [facility] hospitalist, Dr. Navarro, who agrees to accept the patient for A. fib RVR for continued evaluation and management. EKG dated 01/29/18 at 20:47 interpreted as atrial fibrillation with rapid ventricular rate of 154. QTC 356. Normal axis. Nonspecific ST-T changes. Compared to previous dated 09/09/2017 showing sinus bradycardia with frequent PVC; no acute ischemic changes in comparison. Vital Signs Temperature 97.6 F 01/29/18 20:39 Pulse Rate 101 01/29/18 20:39 Respiratory Rate 16 01/29/18 20:39 Blood Pressure 117/74 01/29/18 20:39 O2 Sat by Pulse Oximetry 97 01/29/18 20:39 Temperature 97.9 F 01/29/18 23:30 Pulse Rate 72 01/29/18 23:30 Respiratory Rate 18 01/29/18 23:30 Blood Pressure 119/67 01/29/18 23:30 O2 Sat by Pulse Oximetry 94 01/29/18 23:30 Oxygen Delivery Oxygen Delivery Room Air Arrhythmia/Palpitations - Lab Data Result diagrams: 01/29/18 21:11 01/29/18 21:11 Lab Results 01/29/18 01/29/18 01/29/18 Range/Units 21:11 21:11 21:11 WBC 5.5 (4.3-11.1) K/mcL RBC 4.50 (4.19-5.50) M/mcL Hgb 14.6 (12.9-16.9) g/dL Hct 43.0 (37.5-50.1) % MCV 95.6 (83.0-100.0) fL MCH 32.4 (28.0-33.3) pg MCHC 34.0 (31.6-35.5) g/dL RDW 12.9 (11.5-14.5) % Plt Count 132 L (140-400) K/mcL MPV 11.2 (9.4-12.4) fL Immature Gran % 0.2 (0-4) % Seg Neutrophils % 56.1 % Lymphocytes % 32.8 % Monocytes % 8.3 % Eosinophils % 2.4 % Basophils % 0.2 % Neutrophils # 3.1 (1.6-8.9) K/mcL Lymphocytes # 1.8 (0.6-4.6) K/mcL Monocytes # 0.5 (0.0-1.3) K/mcL Eosinophils # 0.1 (0.0-0.6) K/mcL Basophils # 0.0 (0.0-0.2) K/mcL PT 13.5 H (9.4-12.1) Seconds INR 1.2 APTT 43.8 H (26.0-36.0) Seconds Sodium 140 (136-145) mEq/L Potassium 3.9 (3.5-5.1) mEq/L Chloride 110 H (98-107) mEq/L Carbon Dioxide 23 (23-29) mEq/L BUN 15 (8-23) mg/dL Creatinine 0.98 (0.70-1.30) mg/dL Est GFR ( Amer) > 60 (> 60) Est GFR (Non-Af Amer) > 60 (> 60) BUN/Creatinine Ratio 15 (6-26) Glucose 110 H (70-105) mg/dL Calculated Osmolality 291 (280-300) Calcium 9.2 (8.6-10.3) mg/dL Magnesium 2.0 (1.6-2.6) mg/dL Troponin I < 0.03 (< 0.04) ng/mL TSH 1.548 (0.340-5.600) mcIU/mL
[2018-01-29 21:22] LABS: Basophils % 0.2 %; Eosinophils # 0.1 K/mcL (0.0-0.6); Eosinophils % 2.4 %; Hemoglobin 14.6 g/dL (12.9-16.9); Immature Granulocytes % 0.2 % (0-4); Lymphocytes # 1.8 K/mcL (0.6-4.6); Lymphocytes % 32.8 %; Mean Corpuscular Hemoglobin 32.4 pg (28.0-33.3); Mean Corpuscular Volume 95.6 fL (83.0-100.0); Mean Platelet Volume 11.2 fL (9.4-12.4); Monocytes # 0.5 K/mcL (0.0-1.3); Monocytes % 8.3 %; Neutrophils # 3.1 K/mcL (1.6-8.9); Platelet Count 132 K/mcL (140-400); Red Cell Distribution Width 12.9 % (11.5-14.5); Segmented Neutrophils % 56.1 %
[2018-01-29 21:27] LABS: INR 1.2; Prothrombin Time 13.5 Seconds (9.4-12.1)
[2018-01-29 21:29] LABS: Activated Partial Thrombo Time 43.8 Seconds (26.0-36.0)
[2018-01-29 21:43] LABS: Troponin I < 0.03 ng/mL (< 0.04)
[2018-01-29 21:45] LABS: BUN/Creatinine Ratio 15 (6-26); Blood Urea Nitrogen 15 mg/dL (8-23); Calcium 9.2 mg/dL (8.6-10.3); Carbon Dioxide 23 mEq/L (23-29); Chloride 110 mEq/L (98-107); Glucose 110 mg/dL (70-105); Osmolality,Calculated 291 (280-300); Potassium 3.9 mEq/L (3.5-5.1); Sodium 140 mEq/L (136-145); eGFR For Non-African Americans > 60 (> 60)
--- NOTE | 2018-01-29 22:19 | Emergency Department Note ---
Disposition Clinical Impression: Atrial fibrillation, Palpitations Disposition: Admitted As Inpatient Forms: ED Satisfaction Letter General Adult HPI - General Chief complaint: ED Arrhythmia/Palpitations Stated complaint: afib Time Seen by Provider: 01/29/18 20:49 Source: patient Limitations: no limitations - History of Present Illness Pain Scale: 0 - Related Data Home Medications Medication Instructions Recorded Confirmed Atenolol [Tenormin] 12.5 mg PO HS 07/16/16 09/09/17 Flecainide Acetate 150 mg PO BID 07/16/16 09/09/17 Fluticasone Propionate Nasal 50 mcg NS BID PRN 07/16/16 09/09/17 [Flonase] Tamsulosin [Flomax] 0.4 mg PO DAILY 08/01/16 09/09/17 Omeprazole [PriLOSEC] 40 mg PO DAILY 10/25/16 09/09/17 Docusate Sodium [Stool Softener] 100 mg PO BID PRN 07/21/17 09/09/17 Rivaroxaban [Xarelto] 20 mg PO DAILY 07/21/17 09/09/17 Previous Rx's Medication Instructions Recorded Aspirin 81 mg PO DAILY tab.chew 08/02/16 Allergies Allergy/AdvReac Type Severity Reaction Status Date / Time No Known Allergies Allergy Verified 06/27/17 18:06 Past Medical History - Past Medical History Medical history: Reports: arthritis, atrial fibrillation, GERD, GI bleed, glaucoma, SVT Surgical history: Reports: angioplasty/stent, cholecystectomy Psychiatric history: Reports: no psych history - Social History Smoking Status: Never smoker Smokeless Tobacco Status: No Alcohol use: Reports: none Drug use: Reports: none Physical Exam - General Limitations: no limitations General appearance: alert, in no apparent distress Course Vital Signs Temperature 97.6 F 01/29/18 20:39 Pulse Rate 101 01/29/18 20:39 Respiratory Rate 16 01/29/18 20:39 Blood Pressure 117/74 01/29/18 20:39 O2 Sat by Pulse Oximetry 97 01/29/18 20:39 Temperature 97.6 F 01/29/18 20:39 Pulse Rate 78 01/29/18 22:14 Respiratory Rate 18 01/29/18 22:14 Blood Pressure 107/68 01/29/18 22:14 O2 Sat by Pulse Oximetry 98 01/29/18 22:14 Oxygen Delivery Oxygen Delivery Room Air Medical Decision Making - Lab Data Result diagrams: 01/29/18 21:11 01/29/18 21:11 Lab Results 01/29/18 01/29/18 01/29/18 Range/Units 21:11 21:11 21:11 WBC 5.5 (4.3-11.1) K/mcL RBC 4.50 (4.19-5.50) M/mcL Hgb 14.6 (12.9-16.9) g/dL Hct 43.0 (37.5-50.1) % MCV 95.6 (83.0-100.0) fL MCH 32.4 (28.0-33.3) pg MCHC 34.0 (31.6-35.5) g/dL RDW 12.9 (11.5-14.5) % Plt Count 132 L (140-400) K/mcL MPV 11.2 (9.4-12.4) fL Immature Gran % 0.2 (0-4) % Seg Neutrophils % 56.1 % Lymphocytes % 32.8 % Monocytes % 8.3 % Eosinophils % 2.4 % Basophils % 0.2 % Neutrophils # 3.1 (1.6-8.9) K/mcL Lymphocytes # 1.8 (0.6-4.6) K/mcL Monocytes # 0.5 (0.0-1.3) K/mcL Eosinophils # 0.1 (0.0-0.6) K/mcL Basophils # 0.0 (0.0-0.2) K/mcL PT 13.5 H (9.4-12.1) Seconds INR 1.2 APTT 43.8 H (26.0-36.0) Seconds Sodium 140 (136-145) mEq/L Potassium 3.9 (3.5-5.1) mEq/L Chloride 110 H (98-107) mEq/L Carbon Dioxide 23 (23-29) mEq/L BUN 15 (8-23) mg/dL Creatinine 0.98 (0.70-1.30) mg/dL Est GFR ( Amer) > 60 (> 60) Est GFR (Non-Af Amer) > 60 (> 60) BUN/Creatinine Ratio 15 (6-26) Glucose 110 H (70-105) mg/dL Calculated Osmolality 291 (280-300) Calcium 9.2 (8.6-10.3) mg/dL Magnesium 2.0 (1.6-2.6) mg/dL Troponin I < 0.03 (< 0.04) ng/mL Critical Care Time Critical Care Time: Yes Total Critical Care Time: 30 Attestation: CC time of 30 min spent in med management of a fib with RVR on cardizem gtt Attestation Statement - Attestation Attestation: I examined this patient and my medical decision-making was reviewed with the Resident Physician. I agree with the documented findings, disposition and treatment plan as described except to the extent set forth below. 67-year-old male presents emergency room with A. fib with RVR. History of atrial fibrillation with RVR in the past. He had recent medication changes from flecainide to Cardizem. He notices palpitations earlier today. Denies any chest pain. Denies any shortness of breath. We started the patient on a Cardizem drip. He has spontaneously converted. We will admit the patient. He is on Xarelto chronically.
[2018-01-29] MEDS ORDERED: 0.9 % Sodium Chloride 1,000 ML IVC ONE (22:38)
[2018-01-29 23:17] LABS: Thyroid Stimulating Hormone 1.548 mcIU/mL (0.340-5.600)
[2018-01-29] MEDS ORDERED: Fluticasone Propionate Nasal 50 MCG/SPRAY BOTTLE NS PRN (23:31)
--- NOTE | 2018-01-29 23:42 | Internal Med History&Physical ---
Date of Encounter: 01/29/18 Time of Encounter: 23:42 Internal Medicine - H&P: HPI Chief complaint: palpitations Admitted From: Home Plans for Post Hospital Care: Home History of present illness: The patient is a 67-year-old male with a history of paroxysmal atrial fibrillation on rivaroxaban having undergone ablation therapy that was unsuccessful who was previously on flecainide and atenolol but in the last few weeks those medications were discontinued and he was now placed on diltiazem. He also has a history of nonobstructive coronary artery disease. He has been admitted here on multiple occasions due to A. fib with RVR. He presents now with a complaint of a "funny feeling" in his chest, found to have a heart rate of 160 on arrival to the emergency room and EKG depicted of of atrial fibrillation with rapid ventricular rate. He was subsequently placed on diltiazem drip which successfully controlled his rate and also reverted back to normal sinus rhythm. He is admitted for ongoing observation. He reports adherence to his medications although he does state that he has previously trialed diltiazem in the past and for some reason it does not seem to work very well in him. He neither any chest pain per se and denies any dyspnea, diaphoresis or lightheadedness. He no longer feels any fluttering or palpitations in his chest. He follows with Dr. Jones in cardiology. Past Med Surg Social Fam HX - Past Medical History Medical history: arthritis, atrial fibrillation, GERD, GI bleed, glaucoma, SVT Additional medical history: A fib, allergic rhinitis, plantar fascitis Psychiatric history: no psych history - Past Surgical History Surgical History: angioplasty/stent, cholecystectomy Additional surgical history: knee surgery. heart cath,rt foot - Social History Smoking Status: Never smoker Smokeless Tobacco Status: No Alcohol use: none Drug use: none - Family History Mother Living Status: Hx Family Cardiac Disorders: Yes (CHF) Sister Hx Family Cardiac Disorders: Yes (PACER/AFIB) Father Living Status: Hx Family Cardiac Disorders: Yes (ID) Internal Medicine - H&P: Meds Atenolol [Tenormin] 12.5 mg PO HS 07/16/16 [History] Flecainide Acetate 150 mg PO BID 07/16/16 [History] Fluticasone Propionate Nasal [Flonase] 50 mcg NS BID PRN 07/16/16 [History] Tamsulosin [Flomax] 0.4 mg PO DAILY 08/01/16 [History] Aspirin 81 mg PO DAILY tab.chew 08/02/16 [Rx] Omeprazole [PriLOSEC] 40 mg PO DAILY 10/25/16 [History] Docusate Sodium [Stool Softener] 100 mg PO BID PRN 07/21/17 [History] Rivaroxaban [Xarelto] 20 mg PO DAILY 07/21/17 [History] 3 Allergy/AdvReac Type Severity Reaction Status Date / Time No Known Allergies Allergy Verified 06/27/17 18:06 All Systems PM: A 10-system review of systems was performed and is negative for pertinent findings except as documented above in the HPI. - Constitutional Vitals: Temp Pulse Resp BP Pulse Ox 97.6 F 70 18 103/74 100 01/29/18 20:39 01/29/18 23:00 01/29/18 23:00 01/29/18 23:00 01/29/18 23:00 Exam: Vitals: Reviewed General: Well-developed man lying comfortably in bed in no acute distress Skin: Warm and supple HEENT: Moist mucous membranes. No conjunctivae pallor. Neck: No lymphadenopathy. No JVD. No carotid bruits. No palpable thyroid. Chest: Normal thoracic expansion. Normal breath sounds. Clear to auscultation. Heart: Irregularly irregular. No pulse deficit. Abdomen: Non-distended, soft and non-tender to palpation. No peritoneal reaction. Extremities: No clubbing, cyanosis or edema. No calf tenderness. Normal distal pulses. Neurological: Awake, alert and oriented to person, place and time. No focal deficits. Psych: Affect appropriate. Internal Med - H&P Results - Labs CBC & Chem 7: 01/29/18 21:11 01/29/18 21:11 - Assessment and plan (1) Atrial fibrillation with rapid ventricular response Current Visit: Yes Status: Acute Assessment and plan: Currently rate controlled on diltiazem drip. Once again sure ongoing stability we shall transition to an oral regimen. For now he shall remain on cardiac monitoring with cardiology follow-up in the morning for adjustment of medications if needed. Should continue anticoagulant therapy. (2) CAD (coronary artery disease) Current Visit: Yes Status: Chronic Assessment and plan: No clinical or electrographic signs of acute ischemic disease. Last cardiac catheter showed nonobstructive disease. Stable. Qualifiers: Coronary Disease-Associated Artery/Lesion type: [place] artery [place] vs. transplanted heart: [place] heart Associated angina: without angina Qualified Code(s): I25.10 - Atherosclerotic heart disease of [place] coronary artery without angina pectoris (3) BPH (benign prostatic hyperplasia) Current Visit: Yes Status: Acute Assessment and plan: We will continue tamsulosin at bedtime. Qualifiers: Lower urinary tract symptom presence: symptoms present Lower urinary tract symptom detail: unspecified Qualified Code(s): N40.1 - Benign prostatic hyperplasia with lower urinary tract symptoms (4) Gastroesophageal reflux disease Current Visit: Yes Status: Chronic Assessment and plan: PPI as needed. Qualifiers: Esophagitis presence: esophagitis presence not specified Qualified Code(s) : K21.9 - Gastro-esophageal reflux disease without esophagitis - Time Spent With Patient Total time spent is greater than 50% in coordination of care (as documented) at patient's floor/unit and/or counseling patient: Greater than 35 minutes
[2018-01-30] MEDS ORDERED: Diltiazem CD (24hr) 120 MG CAPSULE PO SCH (09:00)
[2018-01-30] MEDS: Aspirin 81 MG TAB.CHEW PO SCH (10:28)
[2018-01-30] MEDS: *HR* Rivaroxaban 10 MG TABLET PO SCH (10:28)
--- NOTE | 2018-01-30 11:08 | Cardiology Consult Note ---
<Suhail De La Garza R - Last Filed: 01/30/18 11:08> Date of Encounter: 01/30/18 Time of Encounter: 11:06 Assessment and Plan (1) PAF (paroxysmal atrial fibrillation) Current Visit: Yes Status: Chronic Known PAF s/p cryoablation 07/2017. Flecainide stopped 12/2017 due to recurrence of PAF. Recently stopped atenolol and was started on PO Cardizem CD 120mg daily. Reports feeling "off" since starting Cardizem. On arrival, A-Fib RVR HR 160s. Was started on Cardizem gtt and has converted to SR. K, Mag and TSH WNL. TTE 07/2016 EF preserved with normal left atrial size. LHC 07/2016 minimal CAD. Anticoagulated on Xarelto with no missed doses in the past [address] Benjy Jones mentioned in previous outpt notes that if he had recurrence of PAF, would consider other options. Will consult EP to determine if a different antiarrhythmic should be started. Discussion w patient/family: The assessment and plan as outlined above was discussed with the patient and/or family members who expressed understanding and agreement. All questions were answered. Thank you for involving us in the care of your patient. Please call with any questions. I will discuss all the above with Dr. Santoyo and make changes as necessary. History of Present Illness Consult date: 01/30/18 Consult reason: A-Fib Chief complaint: palpitations History of present illness: Mr. Brandon is a 67 year old male with hx PAF s/p loop recorder implant/cryo ablation 07/2017. He follows with Dr. Benjy Jones. Flecainide was stopped in December, due to still having PAF depsite management. Earlier this month due to PVCs, his atenolol was stopped and Cardizem was started. Pt states he has been feeling "off" since starting Cardizem. He began having palpitations yesterday and HR was 170s at home. Found to have a heart rate of 160 on arrival to ED, A- Fib RVR. Cardizem gtt was started and he has since converted back to SR. No acute complaints currently. Cardiology consulted for further recs. Prior CV testing: [facility] 08/02/16: Mild coronary artery disease. The left ventricle is normal and has normal contractility EF 65%. TTE 08/02/16: Normal LV systolic function, LVEF 65%. Mild left ventricular diastolic dysfunction. Normal right ventricular size and function. No significant valvular dysfunction. No evidence of pulmonary hypertension. Past Med Surg Social Fam HX - Past Medical History Medical history: arthritis, atrial fibrillation, GERD, GI bleed, glaucoma, SVT Additional medical history: A fib, allergic rhinitis, plantar fascitis Psychiatric history: no psych history - Past Surgical History Surgical History: angioplasty/stent, cholecystectomy Additional surgical history: knee surgery. heart cath,rt foot - Social History Smoking Status: Never smoker Smokeless Tobacco Status: No Alcohol use: none Drug use: none - Family History Mother Living Status: Hx Family Cardiac Disorders: Yes Hx Family Endocrine Disorder: Yes Sister Hx Family Cardiac Disorders: Yes (PACER/AFIB) Father Living Status: Hx Family Cardiac Disorders: Yes Hx Family Cancer: Yes (lung) Medications and Allergies Atenolol [Tenormin] 12.5 mg PO HS 07/16/16 [History] Flecainide Acetate 150 mg PO BID 07/16/16 [History] Fluticasone Propionate Nasal [Flonase] 50 mcg NS BID PRN 07/16/16 [History] Tamsulosin [Flomax] 0.4 mg PO DAILY 08/01/16 [History] Aspirin 81 mg PO DAILY tab.chew 08/02/16 [Rx] Omeprazole [PriLOSEC] 40 mg PO DAILY 10/25/16 [History] Docusate Sodium [Stool Softener] 100 mg PO BID PRN 07/21/17 [History] Rivaroxaban [Xarelto] 20 mg PO DAILY 07/21/17 [History] 3 Allergy/AdvReac Type Severity Reaction Status Date / Time No Known Allergies Allergy Verified 06/27/17 18:06 All Systems Review: The remainder of the systems were reviewed and are negative - Cardiovascular Cardiovascular: as per HPI, palpitations Physical Examination Vital Signs, Last 4 Hours Temp Pulse Resp BP Pulse Ox 01/30/18 07:27 98.2 F 74 20 111/65 96 Vital Signs Temp Pulse Resp BP Pulse Ox 01/30/18 11:15 98.3 F 65 19 114/76 98 01/30/18 07:27 98.2 F 74 20 111/65 96 01/30/18 04:48 97.9 F 70 18 96/58 97 09/27/18 23:30 97.9 F 72 18 119/67 94 01/29/18 23:00 70 18 103/74 100 01/29/18 22:14 78 18 107/68 98 01/29/18 21:50 81 18 109/76 98 01/29/18 21:17 89 18 109/76 99 01/29/18 20:59 158 18 122/87 98 01/29/18 20:39 97.6 F 101 16 117/74 97 Intake and Output 01/29/18 01/30/18 01/30/18 23:59 07:59 15:59 Intake Total 0 / 0 20 / 20 Output Total 375 / 375 500 / 500 500 / 500 Balance -375 / -375 -480 / -480 -500 / -500 Intake: IV Fluids 20 / 20 Cardizem 50 MG In 0.9 % Sodium 20 / 20 Chloride 40 ML @ 5 MG/HR 5 mls/ hr IVC .Q10H [facility] Rx#:[id number] Oral 0 / 0 0 / 0 Output: Urine 375 / 375 500 / 500 500 / 500 Other: # Voids 0 Weight 97.5 kg General: Conversant, No Apparent Distress HEENT: Atraumatic, Normocephaly, Mucus Membranes Moist Neck: No JVD, Normal carotid pulses Cardiac: Reg Rate and Rhythm, Normal S1 and S2, No Murmur Lungs: Normal Breath Sounds, No Wheeze, Rales, Rhonchi Neuro: Alert and responsive, No focal deficits noted Abdomen: Soft, Non-Tender Skin: No rashes noted on visualized skin Musculoskeletal: No Chest Wall Tenderness Extremities: No Clubbing, No Cyanosis, No Edema, Normal Pulses Results 01/29/18 21:11 01/29/18 21:11 Short CBC 01/29/18 Range/Units 21:11 WBC 5.5 (4.3-11.1) K/mcL Hgb 14.6 (12.9-16.9) g/dL Hct 43.0 (37.5-50.1) % Plt Count 132 L (140-400) K/mcL Neutrophils # 3.1 (1.6-8.9) K/mcL BMP 01/29/18 Range/Units 21:11 Sodium 140 (136-145) mEq/L Potassium 3.9 (3.5-5.1) mEq/L Chloride 110 H (98-107) mEq/L Carbon Dioxide 23 (23-29) mEq/L BUN 15 (8-23) mg/dL Creatinine 0.98 (0.70-1.30) mg/dL Glucose 110 H (70-105) mg/dL Calcium 9.2 (8.6-10.3) mg/dL Cardiac Enzymes 01/29/18 Range/Units 21:11 Troponin I < 0.03 (< 0.04) ng/mL Impressions Chest X-Ray 01/29/18 20:57 IMPRESSION: 1. No acute process identified. D/ / Ned Dawson MD / Ned Dawson MD Interpreting Provider: Ned Dawson MD Active Medications Aspirin (Aspirin) 81 mg PO DAILY [facility] Stop: 08/01/18 09:01 Last Admin: 01/30/18 10:28 Dose: Not Given Diltiazem HCl (Cardizem Cd) 120 mg PO DAILY [facility] Stop: 08/01/18 09:01 Last Admin: 01/30/18 10:28 Dose: 120 mg Docusate Sodium (Colace) 100 mg PO BID PRN; Protocol PRN Reason: constipation Stop: 07/31/18 23:32 Fluticasone Propionate (Flonase) 50 mcg NS BID PRN; Protocol PRN Reason: Allergy Symptoms Stop: 07/31/18 23:32 Diltiazem HCl 50 mg/ Sodium (Chloride) 50 mls @ 5 mls/hr IVC .Q10H [facility] PRN Reason: 5 MG/HR Stop: 07/31/18 21:16 Last Infusion: 01/30/18 01:55 Dose: 0 mg/hr, 0 mls/hr Omeprazole (Prilosec) 40 mg PO DAILY [facility] Stop: 08/01/18 09:01 Last Admin: 01/30/18 10:28 Dose: Not Given Rivaroxaban (Xarelto) 20 mg PO DAILY [facility] Stop: 08/01/18 09:01 Last Admin: 01/30/18 10:28 Dose: 20 mg Tamsulosin HCl (Flomax) 0.4 mg PO DAILY [facility] PRN Reason: Protocol Stop: 07/31/18 23:46 Last Admin: 01/30/18 10:29 Dose: 0.4 mg - Imaging and Cardiology Echo: report reviewed Cardiac cath: report reviewed - EKG Interpretation EKG results cardiology: personally reviewed (A-Fib RVR, rate 154), other (12 hr tele AVG HR 69, SR) Consult Discharge Plan - Plan Referrals: Yasmin Crain MD [Primary Care Provider] - <Theo Santoyo - Last Filed: 01/30/18 13:14> Date of Encounter: 01/30/18 - Attending Attestation Patient was seen and evaluated independently by me. Findings, assessment and plan were discussed at length with patient, questions answered. Agree with nurse practitioner's documentation. Addition as follows, Consulted for Afib RVR with spontaneous back to SR on cardizem drip. 67 yoCM ho PAF on xarelto s/p ablation and loop recorder . Off flecainide due to breakthrough Afib, atnolol switched to cardizem due to PVCs. Had 3 episodes of symptomatic Afib RVR after ablation. No obvious reversible triggers. Also c/o general malaise on cardizem, still has skipping beats. No dizziness, cp , GAO Preserved LVEF w/o structural abn. VSS, no JVD, CTA, RRR, no LE edema. A: Recurrent symptomatic Afib with RVR P: c/w cardizem CD for now will consult EP Dr Jones for medication adjustment for rhythm ctr vs rate ctr vs ablation Theo Santoyo MD, PhD Assessment and Plan Discussion w patient/family: The assessment and plan as outlined above was discussed with the patient and/or family members who expressed understanding and agreement. All questions were answered. Thank you for involving us in the care of your patient. Please call with any questions. History of Present Illness History of present illness: Mr. Brandon is a 67 year old male All Systems Review: The remainder of the systems were reviewed and are negative Physical Examination Vital Signs, Last 4 Hours Temp Pulse Resp BP Pulse Ox 01/30/18 11:15 98.3 F 65 19 114/76 98 Results 01/29/18 21:11 01/29/18 21:11
[2018-01-30] MEDS ORDERED: Acetaminophen 325 MG TABLET PO PRN (12:00)
--- NOTE | 2018-01-30 13:39 | Electrophysiology Consult Note ---
<[place] Grace Jey - Last Filed: 01/30/18 14:29> Date of Encounter: 01/30/18 Time of Encounter: 13:38 Assessment and Plan (1) PAF (paroxysmal atrial fibrillation) Status: Chronic Per EP: -Known PAF s/p cryoablation 07/2017. Flecainide stopped 12/2017 due to recurrence of PAF. Recently stopped atenolol and was started on PO Cardizem CD 120mg daily. Reports feeling "off" since starting Cardizem. -On arrival, A-Fib RVR HR 160s. Was started on Cardizem gtt and has converted to SR. Average HR 62, SR. -K, Mag and TSH WNL. -TTE 07/2016 EF preserved with normal left atrial size. -LHC 07/2016 minimal CAD. -Anticoagulated on Xarelto with no missed doses in the past 30 days. -Baseline ECG 01/30/18 0206 QT 387, QTc 412ms. -Discussed and reviewed with Dr.John Jones, elizabeth start sotalol 80mg Q12 hours. -Will need to be inpatient for 5 total doses, patient states understanding and agreeable. -Continue telemetry. -Will check daily ECGs. (2) Encounter for monitoring anti-arrhythmic therapy Status: Acute Per EP: -Starting sotalol, as above. -Will continue to monitor. Discussion w patient/family: The assessment and plan as outlined above was discussed with the patient who expressed understanding and agreement. All questions were answered. Thank you for involving us in the care of your patient. Please call with any questions. Discussed and reviewed with Dr.John Jones. History of Present Illness Consult date: 01/30/18 Requesting physician: Suhail De La Garza Consult reason: a.fib, s/p ablation Chief complaint: palpitations History of present illness: Mr. Brandon is a 67 year old male with a relevna past medical history of PAF s/p loop recorder implant/cryo ablation 07/2017 who presented to [facility] with complaints of palpitations and high HR. Patient reports was recently started on cardizem and taken off of atenolol. Patient states he has not felt good since medication switch. Past Med Surg Social Fam HX - Past Medical History Attestation: Yes The following information was validated with the patient. Source: patient, old records reviewed Medical history: arthritis, atrial fibrillation, GERD, GI bleed, glaucoma, SVT Additional medical history: A fib, allergic rhinitis, plantar fascitis Psychiatric history: no psych history - Past Surgical History Surgical History: angioplasty/stent, cholecystectomy Additional surgical history: knee surgery. heart cath,rt foot - Social History Smoking Status: Never smoker Smokeless Tobacco Status: No Alcohol use: none Drug use: none - Family History Mother Living Status: Hx Family Cardiac Disorders: Yes Hx Family Endocrine Disorder: Yes Sister Hx Family Cardiac Disorders: Yes (PACER/AFIB) Father Living Status: Hx Family Cardiac Disorders: Yes Hx Family Cancer: Yes (lung) Medications and Allergies Fluticasone Propionate Nasal [Flonase] 50 mcg NS BID PRN 07/16/16 [History] Tamsulosin [Flomax] 0.4 mg PO DAILY 08/01/16 [History] Omeprazole [PriLOSEC] 40 mg PO DAILY PRN 10/25/16 [History] Docusate Sodium [Stool Softener] 100 mg PO BID PRN 07/21/17 [History] Rivaroxaban [Xarelto] 20 mg PO DAILY 07/21/17 [History] Loratadine [Allergy Relief] 10 mg PO DAILY 01/30/18 [History] Montelukast [Singulair] 10 mg PO DAILY 01/30/18 [History] Aspirin 81 mg PO DAILY tab.chew 02/01/18 [Rx] Sotalol [Betapace] 80 mg PO Q12HR #60 tablet 02/01/18 [Rx] 3 Allergy/AdvReac Type Severity Reaction Status Date / Time No Known Allergies Allergy Verified 01/30/18 15:46 All Systems Review: The remainder of the systems were reviewed and are negative - Cardiovascular Cardiovascular: as per HPI, palpitations, rapid heart rate Physical Examination Vital Signs, Last 4 Hours Temp Pulse Resp BP Pulse Ox 01/30/18 11:15 98.3 F 65 19 114/76 98 General: Conversant, No Apparent Distress HEENT: Atraumatic, Normocephaly, Mucus Membranes Moist Neck: No JVD, Normal carotid pulses Cardiac: Reg Rate and Rhythm, Normal S1 and S2, No Murmur Lungs: Normal Breath Sounds, No Wheeze, Rales, Rhonchi Neuro: Alert and responsive, No focal deficits noted Abdomen: Soft, Non-Tender Skin: No rashes noted on visualized skin Musculoskeletal: No Chest Wall Tenderness Extremities: No Clubbing, No Cyanosis, No Edema, Normal Pulses Results 01/29/18 21:11 01/29/18 21:11 Impressions Chest X-Ray 01/29/18 20:57 IMPRESSION: 1. No acute process identified. D/ / Ned Dawson MD / Ned Dawson MD Interpreting Provider: Ned Dawson MD Active Medications Acetaminophen (Tylenol) 650 mg PO Q6HR PRN PRN Reason: Pain Stop: 08/01/18 12:01 Aspirin (Aspirin) 81 mg PO DAILY [facility] Stop: 08/01/18 09:01 Last Admin: 01/30/18 10:28 Dose: Not Given Docusate Sodium (Colace) 100 mg PO BID PRN; Protocol PRN Reason: constipation Stop: 07/31/18 23:32 Fluticasone Propionate (Flonase) 50 mcg NS BID PRN; Protocol PRN Reason: Allergy Symptoms Stop: 07/31/18 23:32 Diltiazem HCl 50 mg/ Sodium (Chloride) 50 mls @ 5 mls/hr IVC .Q10H [facility] PRN Reason: 5 MG/HR Stop: 07/31/18 21:16 Last Infusion: 01/30/18 01:55 Dose: 0 mg/hr, 0 mls/hr Omeprazole (Prilosec) 40 mg PO DAILY [facility] Stop: 08/01/18 09:01 Last Admin: 01/30/18 10:28 Dose: Not Given Rivaroxaban (Xarelto) 20 mg PO DAILY [facility] Stop: 08/01/18 09:01 Last Admin: 01/30/18 10:28 Dose: 20 mg Sotalol HCl (Betapace) 80 mg PO Q12HR [facility] Stop: 08/01/18 18:01 Tamsulosin HCl (Flomax) 0.4 mg PO DAILY [facility] PRN Reason: Protocol Stop: 07/31/18 23:46 Last Admin: 01/30/18 10:29 Dose: 0.4 mg Laboratory Tests 01/29/18 01/29/18 21:11 21:11 Hgb 14.6 Potassium 3.9 Creatinine 0.98 Magnesium 2.0 Troponin I < 0.03 TSH 1.548 - Imaging and Cardiology Chest Xray: report reviewed Echo: report reviewed Cardiac cath: report reviewed - EKG Interpretation EKG results cardiology: personally reviewed (ECG 01/29/18 with a.fib, RVR, HR 154.), other (Telemetry reveiwed with average HR previous 12 hours noted to be 62, SR. PVCs and PACs noted.) Consult Discharge Plan - Plan Instructions: Sotalol (By mouth), Atrial Fibrillation (DC) Referrals: Suhail De La Garza CNP [Advanced Practice Nurse] - Yasmin Crain MD [Primary Care Provider] - Prescriptions: Sotalol [Betapace] 80 mg PO Q12HR #60 tablet <Benjy Jones - Last Filed: 02/05/18 15:55> Date of Encounter: 02/05/18 - Attending Attestation I have personally performed a face to face evaluation on this patient. I have reviewed and agree with the care plan. History and Exam by me shows: Recurrent AF off antiarrythmics. Had proarrythmia on flecainide. Will try sotalol. Assessment and Plan Discussion w patient/family: The assessment and plan as outlined above was discussed with the patient and/or family members who expressed understanding and agreement. All questions were answered. Thank you for involving us in the care of your patient. Please call with any questions. History of Present Illness History of present illness: Mr. Brandon is a 67 year old male All Systems Review: The remainder of the systems were reviewed and are negative Results 01/29/18 21:11 01/29/18 21:11
--- NOTE | 2018-01-30 21:04 | Internal Med Progress Note ---
Hospitalist Progress Note - Encounter Date of Encounter: 01/30/18 Time of Encounter: 19:00 - Subjective Interval History: SUBJECTIVE: The patient was admitted with an another episode of paroxysmal atrial fibrillation. Ventricular rate was around 160 at admission to the emergency room. The patient was started on IV Cardizem drip; converted to normal sinus rhythm. He feels good. Denies chest pain. Denies difficulty breathing, coughing and wheezing. Denies abdominal pain, nausea and vomiting. He has normal urination. OBJECTIVE: Skin: Free of rash and discoloration. ENMT: Oral/pharyngeal mucosa is normal in appearance. Eyes: Sclera is white. There is no discharge from eyes. Respiratory: Normal breath sounds; no crackles or wheezes. CV: Heart is regular; no gallop or murmur. GI: Abdomen is soft and not tender. There is no palpable mass or visceromegaly. Neuro: There is no focal deficits. ASSESSMENT AND PLAN: Paroxysmal atrial fibrillation. Converted to normal sinus rhythm. His flecainide and Cardizem CD have been substituted with sotalol. He continues Xarelto. We appreciate help from cardiology. He will be discharged home after 5 doses of sotalol (assuming that he is stable). He has mild/nonobstructive coronary artery disease. He is on daily aspirin. GERD. Under control. We will continue Prilosec. BPH. No urinary obstruction. We will continue Flomax. - Exam Vitals: Temp Pulse Resp BP Pulse Ox 98.5 F 57 16 105/66 94 01/30/18 20:26 01/30/18 20:26 01/30/18 20:26 01/30/18 20:26 01/30/18 20:26 Exam: xx - Assessment and Plan (1) Atrial fibrillation with rapid ventricular response Current Visit: Yes Status: Acute (2) CAD (coronary artery disease) Current Visit: Yes Status: Chronic (3) Gastroesophageal reflux disease Current Visit: Yes Status: Chronic (4) BPH (benign prostatic hyperplasia) Current Visit: Yes Status: Acute - Time Spent with Patient Total time spent is greater than 50% in coordination of care (as documented) at patient's floor/unit and/or counseling patient: Internal Medicine: Result - Labs CBC & Chem 7: 01/29/18 21:11 01/29/18 21:11 - ABG Interpretation ABG results: PT/INR, D-dimer PT 13.5 Seconds (9.4-12.1) H 01/29/18 21:11 Consult Discharge Plan - Plan Referrals: Yasmin Crain MD [Primary Care Provider] - (2) CAD (coronary artery disease) Qualifiers: Coronary Disease-Associated Artery/Lesion type: [place] artery [place] vs. transplanted heart: [place] heart Associated angina: without angina Qualified Code(s): I25.10 - Atherosclerotic heart disease of [place] coronary artery without angina pectoris (3) Gastroesophageal reflux disease Qualifiers: Esophagitis presence: esophagitis presence not specified Qualified Code(s): K21.9 - Gastro-esophageal reflux disease without esophagitis (4) BPH (benign prostatic hyperplasia) Qualifiers: Lower urinary tract symptom presence: symptoms present Lower urinary tract symptom detail: unspecified Qualified Code(s): N40.1 - Benign prostatic hyperplasia with lower urinary tract symptoms
--- NOTE | 2018-01-31 09:51 | Cardiology Progress Note ---
Date of Encounter: 01/31/18 Time of Encounter: 09:45 Assessment and Plan (1) PAF (paroxysmal atrial fibrillation) Current Visit: Yes Status: Chronic Known PAF s/p cryoablation 07/2017. Flecainide stopped 12/2017 due to recurrence of PAF. On arrival, A-Fib RVR , started on Cardizem gtt and has converted to SR. K, Mag and TSH WNL. Stopped PO Cardizem due to him feeling "off" since starting it. TTE 07/2016 EF preserved with normal left atrial size. LHC 07/2016 minimal CAD. Anticoagulated on Xarelto with no missed doses in the past 30 days. EP consulted yesterday, started Sotalol 80mg BID. s/p 2 doses. Maintaining SR. AVG HR 57. Daily ECGs to monitor QTc. S/P 2 doses QTc remains stable. Will need to be inpatient for 5 total doses, patient states understanding and agreeable. If maintaining SR with stable QTc, pt will be able to be d/c'd home tomorrow evening 2 hours after his 5th dose. Continue to follow. (2) Encounter for monitoring anti-arrhythmic therapy Current Visit: Yes Status: Acute Starting sotalol, as above. Will continue to monitor. Discussion w patient/family: The assessment and plan as outlined above was discussed with the patient and/or family members who expressed understanding and agreement. All questions were answered. Thank you for involving us in the care of your patient. Please call with any questions. I will discuss all the above with Dr. Santoyo and make changes as necessary. Subjective Principal diagnosis: PAF Interval history: S/P 2 sotalol doses, SR. No acute complaints this AM. Objective Vital Signs, Last 4 Hours Temp Pulse Resp BP Pulse Ox 01/31/18 07:45 98.1 F 58 20 102/65 95 Vital Signs Temp Pulse Resp BP Pulse Ox 01/31/18 07:45 98.1 F 58 20 102/65 95 01/31/18 04:13 98.0 F 59 16 110/67 95 01/31/18 00:00 98.1 F 64 18 99/66 97 01/30/18 20:26 98.5 F 57 16 105/66 94 01/30/18 15:57 98.5 F 62 20 114/66 98 01/30/18 11:15 98.3 F 65 19 114/76 98 Intake and Output 01/30/18 01/31/18 01/31/18 23:59 07:59 15:59 Intake Total 200 / 200 360 / 360 Output Total 700 / 700 550 / 550 Balance -500 / -500 -190 / -190 Intake: Oral 200 / 200 360 / 360 Output: Urine 700 / 700 550 / 550 Other: # Voids 0 Weight 98.3 kg Patient Weight 01/31/18 23:59 Weight 98.3 kg General: Conversant, No Apparent Distress HEENT: Atraumatic, Normocephaly, Mucus Membranes Moist Neck: No JVD, Normal carotid pulses Cardiac: Reg Rate and Rhythm, Normal S1 and S2, No Murmur Lungs: Normal Breath Sounds, No Wheeze, Rales, Rhonchi Neuro: Alert and responsive, No focal deficits noted Abdomen: Soft, Non-Tender Skin: No rashes noted on visualized skin Musculoskeletal: No Chest Wall Tenderness Extremities: No Clubbing, No Cyanosis, No Edema, Normal Pulses Results 01/29/18 21:11 01/29/18 21:11 Active Medications Acetaminophen (Tylenol) 650 mg PO Q6HR PRN PRN Reason: Pain Stop: 08/01/18 12:01 Aspirin (Aspirin) 81 mg PO DAILY [facility] Stop: 08/01/18 09:01 Last Admin: 01/30/18 10:28 Dose: Not Given Docusate Sodium (Colace) 100 mg PO BID PRN; Protocol PRN Reason: constipation Stop: 07/31/18 23:32 Fluticasone Propionate (Flonase) 50 mcg NS BID PRN; Protocol PRN Reason: Allergy Symptoms Stop: 07/31/18 23:32 Last Admin: 01/30/18 21:21 Dose: 50 mcg Diltiazem HCl 50 mg/ Sodium (Chloride) 50 mls @ 5 mls/hr IVC .Q10H [facility] PRN Reason: 5 MG/HR Stop: 07/31/18 21:16 Last Infusion: 01/30/18 01:55 Dose: 0 mg/hr, 0 mls/hr Omeprazole (Prilosec) 40 mg PO DAILY [facility] Stop: 08/01/18 09:01 Last Admin: 01/30/18 10:28 Dose: Not Given Rivaroxaban (Xarelto) 20 mg PO DAILY [facility] Stop: 08/01/18 09:01 Last Admin: 01/30/18 10:28 Dose: 20 mg Sotalol HCl (Betapace) 80 mg PO Q12HR [facility] Stop: 08/01/18 18:01 Last Admin: 01/31/18 05:48 Dose: 80 mg Tamsulosin HCl (Flomax) 0.4 mg PO DAILY [facility] PRN Reason: Protocol Stop: 07/31/18 23:46 Last Admin: 01/30/18 10:29 Dose: 0.4 mg - Imaging and Cardiology Echo: report reviewed Cardiac cath: report reviewed - EKG Interpretation EKG results cardiology: other (12 hr tele AVG HR 57, SR, no significant pauses or arrhythmias noted.) Consult Discharge Plan - Plan Referrals: Yasmin Crain MD [Primary Care Provider] -
[2018-01-31] MEDS: *HR* Rivaroxaban 10 MG TABLET PO SCH (10:28)
[2018-01-31] MEDS: Aspirin 81 MG TAB.CHEW PO SCH (10:30)
--- NOTE | 2018-01-31 18:09 | Internal Med Progress Note ---
Hospitalist Progress Note - Encounter Date of Encounter: 01/31/18 Time of Encounter: 18:08 - Subjective Interval History: SUBJECTIVE: The patient was admitted with an another episode of paroxysmal atrial fibrillation. Ventricular rate was around 160 at admission to the emergency room. The patient was started on IV Cardizem drip; converted to normal sinus rhythm. He started on sotalol instead of Cardizem CD and flecainide. He feels good. Denies chest pain. Denies difficulty breathing, coughing and wheezing. Denies abdominal pain, nausea and vomiting. He has normal urination. OBJECTIVE: Skin: Free of rash and discoloration. ENMT: Oral/pharyngeal mucosa is normal in appearance. Eyes: Sclera is white. There is no discharge from eyes. Respiratory: Normal breath sounds; no crackles or wheezes. CV: Heart is regular; no gallop or murmur. GI: Abdomen is soft and not tender. There is no palpable mass or visceromegaly. Neuro: There is no focal deficits. ASSESSMENT AND PLAN: Paroxysmal atrial fibrillation. Converted to normal sinus rhythm. His flecainide and Cardizem CD have been substituted with sotalol. He continues Xarelto. We appreciate help from cardiology. He will be discharged home after 5 doses of sotalol (assuming that he is stable). Currently, his telemetry shows normal sinus rhythm. He has mild/nonobstructive coronary artery disease. He is on daily sotalol and aspirin. GERD. Under control. We will continue Prilosec. BPH. No urinary obstruction. We will continue Flomax. - Exam Vitals: Temp Pulse Resp BP Pulse Ox 98.5 F 55 14 106/69 97 01/31/18 15:24 01/31/18 15:24 01/31/18 15:24 01/31/18 15:24 01/31/18 15:24 Exam: xx - Assessment and Plan (1) Atrial fibrillation with rapid ventricular response Current Visit: Yes Status: Acute (2) CAD (coronary artery disease) Current Visit: Yes Status: Chronic (3) Gastroesophageal reflux disease Current Visit: Yes Status: Chronic (4) BPH (benign prostatic hyperplasia) Current Visit: Yes Status: Acute - Time Spent with Patient Total time spent is greater than 50% in coordination of care (as documented) at patient's floor/unit and/or counseling patient: 25 - 35 minutes Plan of Care Discussed with: patient (and family..) Internal Medicine: Result - Labs CBC & Chem 7: 01/29/18 21:11 01/29/18 21:11 - ABG Interpretation ABG results: PT/INR, D-dimer PT 13.5 Seconds (9.4-12.1) H 01/29/18 21:11 Consult Discharge Plan - Plan Referrals: Yasmin Crain MD [Primary Care Provider] - (2) CAD (coronary artery disease) Qualifiers: Coronary Disease-Associated Artery/Lesion type: [place] artery [place] vs. transplanted heart: [place] heart Associated angina: without angina Qualified Code(s): I25.10 - Atherosclerotic heart disease of [place] coronary artery without angina pectoris (3) Gastroesophageal reflux disease Qualifiers: Esophagitis presence: esophagitis presence not specified Qualified Code(s): K21.9 - Gastro-esophageal reflux disease without esophagitis (4) BPH (benign prostatic hyperplasia) Qualifiers: Lower urinary tract symptom presence: symptoms present Lower urinary tract symptom detail: unspecified Qualified Code(s): N40.1 - Benign prostatic hyperplasia with lower urinary tract symptoms
--- NOTE | 2018-02-01 09:33 | Cardiology Progress Note ---
Date of Encounter: 02/01/18 Time of Encounter: 09:30 Assessment and Plan (1) PAF (paroxysmal atrial fibrillation) Current Visit: Yes Status: Chronic Known PAF s/p cryoablation 07/2017. Flecainide stopped 12/2017 due to recurrence of PAF. On arrival, A-Fib RVR , since converted to SR. K, Mag and TSH WNL. Stopped PO Cardizem due to him feeling "off". TTE 07/2016 EF preserved with normal left atrial size. LHC 07/2016 minimal CAD. Anticoagulated on Xarelto with no missed doses in the past 30 days. Started Sotalol 80mg BID. s/p 4 doses. Maintaining SR. AVG HR 63. QTc remains stable. 5th dose will be this evening. Obtain ECG 2 hours after 5th dose and if QTc remains <500ms, okay to d/c home from cardiology standpoint. Will coordinate outpt follow-up with Dr. Benjy Jones in 2-3 weeks. (2) Encounter for monitoring anti-arrhythmic therapy Current Visit: Yes Status: Acute Started sotalol, as above. Discussion w patient/family: The assessment and plan as outlined above was discussed with the patient and/or family members who expressed understanding and agreement. All questions were answered. Thank you for involving us in the care of your patient. Please call with any questions. I will discuss all the above with Dr. Santoyo and make changes as necessary. Subjective Principal diagnosis: PAF Interval history: S/P 4 sotalol doses, SR. No acute complaints this AM. Reports he had episode of diarrhea yesterday. Objective Vital Signs, Last 4 Hours Temp Pulse Resp BP Pulse Ox 02/01/18 08:00 97.7 F 74 19 104/64 96 Vital Signs Temp Pulse Resp BP Pulse Ox 02/01/18 08:00 97.7 F 74 19 104/64 96 02/01/18 04:59 64 16 108/67 97 01/31/18 21:44 98.4 F 66 15 114/70 98 01/31/18 15:24 98.5 F 55 14 106/69 97 01/31/18 11:38 97.8 F 52 21 106/71 97 Intake and Output 01/31/18 02/01/18 02/01/18 23:59 07:59 15:59 Output Total 550 / 550 0 / 0 Balance -550 / -550 0 / 0 Output: Urine 550 / 550 0 / 0 Other: Weight 96.3 kg Patient Weight 02/01/18 23:59 Weight 96.3 kg General: Conversant, No Apparent Distress HEENT: Atraumatic, Normocephaly, Mucus Membranes Moist Neck: No JVD, Normal carotid pulses Cardiac: Reg Rate and Rhythm, Normal S1 and S2, No Murmur Lungs: Normal Breath Sounds, No Wheeze, Rales, Rhonchi Neuro: Alert and responsive, No focal deficits noted Abdomen: Soft, Non-Tender Skin: No rashes noted on visualized skin Musculoskeletal: No Chest Wall Tenderness Extremities: No Clubbing, No Cyanosis, No Edema, Normal Pulses Results 01/29/18 21:11 01/29/18 21:11 Active Medications Acetaminophen (Tylenol) 650 mg PO Q6HR PRN PRN Reason: Pain Stop: 08/01/18 12:01 Aspirin (Aspirin) 81 mg PO DAILY [facility] Stop: 08/01/18 09:01 Last Admin: 01/31/18 10:30 Dose: Not Given Docusate Sodium (Colace) 100 mg PO BID PRN; Protocol PRN Reason: constipation Stop: 07/31/18 23:32 Fluticasone Propionate (Flonase) 50 mcg NS BID PRN; Protocol PRN Reason: Allergy Symptoms Stop: 07/31/18 23:32 Last Admin: 01/30/18 21:21 Dose: 50 mcg Diltiazem HCl 50 mg/ Sodium (Chloride) 50 mls @ 5 mls/hr IVC .Q10H YANE PRN Reason: 5 MG/HR Stop: 07/31/18 21:16 Last Infusion: 01/30/18 01:55 Dose: 0 mg/hr, 0 mls/hr Omeprazole (Prilosec) 40 mg PO DAILY [facility] Stop: 08/01/18 09:01 Last Admin: 01/31/18 10:29 Dose: 40 mg Rivaroxaban (Xarelto) 20 mg PO DAILY [facility] Stop: 08/01/18 09:01 Last Admin: 01/31/18 10:28 Dose: 20 mg Sotalol HCl (Betapace) 80 mg PO Q12HR YANE Stop: 08/01/18 18:01 Last Admin: 02/01/18 06:47 Dose: 80 mg Tamsulosin HCl (Flomax) 0.4 mg PO DAILY YANE PRN Reason: Protocol Stop: 07/31/18 23:46 Last Admin: 01/31/18 10:29 Dose: 0.4 mg - Imaging and Cardiology Echo: report reviewed - EKG Interpretation EKG results cardiology: other (12 hr tele AVG HR 63, SR) Consult Discharge Plan - Plan Referrals: Yasmin Crain MD [Primary Care Provider] -
[2018-02-01] MEDS: Aspirin 81 MG TAB.CHEW PO SCH (09:35)
[2018-02-01] MEDS: *HR* Rivaroxaban 10 MG TABLET PO SCH (09:36)
--- NOTE | 2018-02-01 15:51 | Discharge Summary ---
Date of Encounter: 02/01/18 Time of Encounter: 15:00 - Discharge Diagnosis (1) Atrial fibrillation with rapid ventricular response Priority: Primary Status: Acute (2) CAD (coronary artery disease) Priority: Primary Status: Chronic Qualifiers: Coronary Disease-Associated Artery/Lesion type: [place] artery [place] vs. transplanted heart: [place] heart Associated angina: without angina Qualified Code(s): I25.10 - Atherosclerotic heart disease of [place] coronary artery without angina pectoris (3) Gastroesophageal reflux disease Priority: Secondary Status: Chronic Qualifiers: Esophagitis presence: esophagitis presence not specified Qualified Code(s) : K21.9 - Gastro-esophageal reflux disease without esophagitis (4) BPH (benign prostatic hyperplasia) Priority: Secondary Status: Chronic Qualifiers: Lower urinary tract symptom presence: symptoms present Lower urinary tract symptom detail: unspecified Qualified Code(s): N40.1 - Benign prostatic hyperplasia with lower urinary tract symptoms Hospital course: HOSPITAL COURSE: The patient is an 67-year-old man. He was admitted to the hospital shortly after developing atrial fibrillation with rapid ventricular rate. He had this condition at least 1 time before this hospitalization. He had cryoablation in July 2017. He recently stopped atenolol; was started on Cardizem CD at 120 mg by mouth daily. The patient was put on IV Cardizem drip, preceded by IV Cardizem bolus. He cardioverted shortly after the admission. He was consulted by cardiology. They decided to stop Cardizem CD. They put him on sotalol at 80 mg by mouth twice a day. The patient was observed in the telemetry floor, when taking sotalol. EKG has been done after the sixth dose of sotalol. It does not show any abnormalities; QT interval is 410 ms. His last echocardiogram was done in July 2016 it showed preserved ejection fraction with normal left atrial size. His last cardiac catheterization was done in July 2016. It showed minimal CAD. CONDITION AT DISCHARGE: I saw him in the afternoon. He was feeling fine. Denied chest pain and difficulty breathing. He was anxious to go home. Skin: Free of rash and discoloration. Respiratory: Normal breath sounds with no crackles and wheezes bilaterally. CV: Heart is regular with no gallop or murmur. GI: Abdomen is flat and soft with no palpable mass or visceromegaly. Neuro exam: There is no focal deficits. Normal speech, swallowing and gait. SEE DISCHARGE ORDERS/MEDICATIONS.. He will follow up with cardiology in the next 1-2 weeks. Discharge discussed with: patient, nurse - Time Spent with Patient Total time spent providing and/or coordinating discharge services: Greater than 30 minutes (40 minutes..) - Discharge Medications Prescriptions: Sotalol [Betapace] 80 mg PO Q12HR #60 tablet Home Medications: Fluticasone Propionate Nasal [Flonase] 50 mcg NS BID PRN 07/16/16 [History] Tamsulosin [Flomax] 0.4 mg PO DAILY 08/01/16 [History] Omeprazole [PriLOSEC] 40 mg PO DAILY PRN 10/25/16 [History] Docusate Sodium [Stool Softener] 100 mg PO BID PRN 07/21/17 [History] Rivaroxaban [Xarelto] 20 mg PO DAILY 07/21/17 [History] Loratadine [Allergy Relief] 10 mg PO DAILY 01/30/18 [History] Montelukast [Singulair] 10 mg PO DAILY 01/30/18 [History] Aspirin 81 mg PO DAILY tab.chew 02/01/18 [Rx] Sotalol [Betapace] 80 mg PO Q12HR #60 tablet 02/01/18 [Rx] Allergies/Adverse Reactions: 3 Allergy/AdvReac Type Severity Reaction Status Date / Time No Known Allergies Allergy Verified 01/30/18 15:46 Date of admission: 01/31/18 15:30 Primary care physician: Yasmin Crain MD Discharging clinician: Dhaval Guevara Anticipated date of discharge: 02/01/18 - Constitutional Vitals: Temp Pulse Resp BP Pulse Ox 98.3 F 60 20 112/70 99 02/01/18 10:54 02/01/18 10:54 02/01/18 10:54 02/01/18 10:54 02/01/18 10:54 General appearance: Present: A&O X 3, no acute distress, answers questions appropriately Exam: xx - Patient Status Disposition: Home, Self-Care Condition: Good Functional capacity at discharge: independent ambulation Overall status at discharge: patient is back to baseline - Discharge Instructions Instructions: Sotalol (By mouth), Atrial Fibrillation (DC) Follow Up With: Suhail De La Garza, PRECISION ASSEMBLY INSPECTOR [Advanced Practice Nurse] - Yasmin Crain MD [Primary Care Provider] - - Diet and Activity Activity: resume usual activities as tolerated Diet: low fat, low cholesterol - VTE Reasons for not Prescribing Prophylaxis: Not indicated-Anticoagulated or INR therapeutic Deep Vein Thrombosis/Pulmonary Embolism Present on Admission: No
[2018-02-01 16:15] VITALS: BP 106/70
--- NOTE | 2018-02-01 20:07 | Event Note ---
Date of Encounter: 02/01/18 Time of Encounter: 20:00 Patient seen and examined. Chart reviewed. Vitals are stable. EKG was reviewed which showed normal sinus rhythm with a nonspecific T-wave inversion in lead 3 which is not new from previous EKGs. QtC of 410. Patient asymptomatic. No reports of dizziness lightheadedness or chest pain. Case with discussed with Dr. Gonzalez who confirmed cardiology's assessment that if no other abnormalities or symptoms and QTC less than 500, patient may be discharged. Patient has medication prescription for sotalol. Okay to discharge.
--- NOTE | 2018-02-01 21:47 | Electrocardiograph Report ---
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
--- NOTE | 2018-02-01 21:53 | Electrocardiograph Report ---
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
--- NOTE | 2018-02-02 15:08 | Electrocardiograph Report ---
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
--- NOTE | 2018-02-02 15:44 | Electrocardiograph Report ---
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
--- NOTE | 2018-02-05 09:31 | Electrocardiograph Report ---
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
== END 2018-02-01 20:19 | disposition home or self-care (01) | DRG 310 ==
LOC: EMEROOARM 20:31 → 2NENU 20:31 → SUATTDRO 23:05 → 2NENU 23:20
PROVIDERS: ADMIT Internal Medicine; ATTEND Internal Medicine

== ENCOUNTER 2018-03-19 20:21 | Observation (INO) ==
--- NOTE | 2018-03-19 20:44 | Emergency Department Note ---
Disposition Clinical Impression: Atrial fibrillation with rapid ventricular response Disposition: Admitted As Inpatient Condition: Good Forms: ED Satisfaction Letter Time of Disposition: 22:11 General Adult HPI - General Chief complaint: ED Arrhythmia/Palpitations Stated complaint: "Im in A Fib" Time Seen by Provider: 03/19/18 20:26 Source: patient Limitations: no limitations Nursing Notes Reviewed: Yes Vital Signs Reviewed: Yes - History of Present Illness HPI Narrative: Patient is a 67-year-old male with history of A. fib who presents the emergency department with complaints of irregular heart rhythm. He states he is been in A. fib for the past hour and that yesterday he was intermittently in A. fib. He follows up with Dr. Jones and has been undergoing transitions of his medications. Previously he was on flecainide and sotalol and he was recently transitioned to sotalol and Cardizem. He states that he is intermittently nauseated and headache but is not nauseated at this time. He otherwise denies any fever, chills, chest pain, shortness of breath, vomiting, diarrhea, abdominal pain, peripheral swelling. Pain Scale: 0 - Related Data Home Medications Medication Instructions Recorded Confirmed Fluticasone Propionate Nasal 50 mcg NS BID PRN 07/16/16 01/30/18 [Flonase] Tamsulosin [Flomax] 0.4 mg PO DAILY 08/01/16 01/30/18 Omeprazole [PriLOSEC] 40 mg PO DAILY PRN 10/25/16 01/30/18 Rivaroxaban [Xarelto] 20 mg PO DAILY 07/21/17 01/30/18 Loratadine [Allergy Relief] 10 mg PO DAILY 01/30/18 01/30/18 Montelukast [Singulair] 10 mg PO DAILY 01/30/18 01/30/18 Previous Rx's Medication Instructions Recorded Sotalol [Betapace] 80 mg PO Q12HR #60 tablet 02/01/18 Allergies Allergy/AdvReac Type Severity Reaction Status Date / Time No Known Allergies Allergy Verified 01/30/18 15:46 Review of Systems: Pertinent positives and negatives reviewed in history of present illness. All other systems reviewed and are negative or normal. All systems ED: reviewed and negative except as stated. Review of Systems: As Per HPI Past Medical History - Past Medical History Source: patient, old records reviewed Medical history: Reports: arthritis, atrial fibrillation, GERD, GI bleed, glaucoma, SVT Surgical history: Reports: angioplasty/stent, cholecystectomy Psychiatric history: Reports: no psych history - Social History Smoking Status: Never smoker Smokeless Tobacco Status: No Alcohol use: Reports: none Drug use: Reports: none Physical Exam - General Limitations: no limitations General appearance: alert, in no apparent distress - Head Head exam: atraumatic, normocephalic - Eye Eye exam: Present: normal appearance - ENT ENT exam: normal exam - Neck Neck exam: Present: normal inspection, full ROM, trachea midline - Chest Chest inspection: Present: normal inspection, symmetric chest wall rise. Absent: tenderness - Respiratory Respiratory exam: Present: normal lung sounds bilaterally. Absent: respiratory distress, wheezes, stridor - Cardiovascular Cardiovascular exam: Present: tachycardia (irregularly irregular), irregular rhythm, normal heart sounds - Abdominal Exam Abdominal exam: Present: soft, Non-Tender, normal bowel sounds. Absent: distention, guarding, rebound - Extremities Exam Extremities exam: Present: normal inspection. Absent: pedal edema - Neurological Exam Neurological exam: Present: alert, oriented X3 - Psychiatric Psychiatric exam: Present: normal affect, normal mood - Skin Skin exam: Present: warm, dry, intact Course Vital Signs Temperature 97.4 F L 03/19/18 20:24 Pulse Rate 163 03/19/18 20:24 Respiratory Rate 16 03/19/18 20:24 Blood Pressure 117/81 03/19/18 20:24 O2 Sat by Pulse Oximetry 98 03/19/18 20:24 Temperature 97.4 F L 03/19/18 20:24 Pulse Rate 163 03/19/18 20:24 Respiratory Rate 16 03/19/18 20:24 Blood Pressure 117/81 03/19/18 20:24 O2 Sat by Pulse Oximetry 98 03/19/18 20:24 Oxygen Delivery Oxygen Delivery Room Air Medical Decision Making - [facility] Narrative Medical decision making narrative: Patient is a 67-year-old male with history of A. fib previously controlled with sotalol and Cardizem who presents in Atrial fibrillation with RVR. Symptomatic with light-headedness and headache. Initial heart rate in the 160s without intervention is now stable in the low 100s in [facility]. Given his failure of antiarrhythmics will admit the patient to the hospital for adjustments of his medications and ensuring there is no other cause of his current symptoms. Consult to cardiology, Dr. Fuchs who will consult on the patient. Discussed case with Dr. Sepulveda who accepts the patient for admission. Patient agrees w ith and understands course of treatment plan including plan for admission. All questions answered. - Medical Records Medical records reviewed: Yes I reviewed the patient's medical records. - Lab Data Lab results reviewed: Yes I reviewed the patient's lab results. Result diagrams: 03/19/18 21:03/19/18 21: Lab Results 03/19/18 03/19/18 03/19/18 Range/Units 21: 21: 21: WBC 7.4 (4.3-11.1) K/mcL RBC 4.76 (4.19-5.50) M/mcL Hgb 15.2 (12.9-16.9) g/dL Hct 44.8 (37.5-50.1) % MCV 94.1 (83.0-100.0) fL MCH 31.9 (28.0-33.3) pg MCHC 33.9 (31.6-35.5) g/dL RDW 12.6 (11.5-14.5) % Plt Count 148 (140-400) K/mcL MPV 10.8 (9.4-12.4) fL Immature Gran % 0.3 (0-4) % Seg Neutrophils % 55.2 % Lymphocytes % 35.5 % Monocytes % 7.2 % Eosinophils % 1.5 % Basophils % 0.3 % Neutrophils # 4.1 (1.6-8.9) K/mcL Lymphocytes # 2.6 (0.6-4.6) K/mcL Monocytes # 0.5 (0.0-1.3) K/mcL Eosinophils # 0.1 (0.0-0.6) K/mcL Basophils # 0.0 (0.0-0.2) K/mcL PT 19.4 H (9.4-12.1) Seconds INR 1.7 APTT 44.9 H (26.0-36.0) Seconds Sodium 139 (136-145) mEq/L Potassium 4.1 (3.5-5.1) mEq/L Chloride 109 H (98-107) mEq/L Carbon Dioxide 24 (23-29) mEq/L BUN 19 (8-23) mg/dL Creatinine 1.02 (0.70-1.30) mg/dL Est GFR ( Amer) > 60 (> 60) Est GFR (Non-Af Amer) > 60 (> 60) BUN/Creatinine Ratio 19 (6-26) Glucose 107 H (70-105) mg/dL Calculated Osmolality 291 (280-300) Calcium 9.2 (8.6-10.3) mg/dL Magnesium 2.0 (1.6-2.6) mg/dL TSH 1.555 (0.340-5.600) mcIU/mL - Radiology Data Radiology results reviewed: Yes I reviewed the patient's radiology results. Chest X-Ray 03/19/18 20:43 IMPRESSION: 1. No acute cardiopulmonary disease. D/ / Russ Mendez MD / Russ Mendez MD Interpreting Provider: Russ Mendez MD - EKG Data EKG #1 EKG attestation: Yes I reviewed and interpreted this EKG. EKG results narrative: Atrial fibrillation rate of 104. QRS 87. QTC 350, QTC 341.
[2018-03-19 21:20] LABS: Basophils % 0.3 %; Eosinophils # 0.1 K/mcL (0.0-0.6); Eosinophils % 1.5 %; Hematocrit 44.8 % (37.5-50.1); Hemoglobin 15.2 g/dL (12.9-16.9); Immature Granulocytes % 0.3 % (0-4); Lymphocytes # 2.6 K/mcL (0.6-4.6); Lymphocytes % 35.5 %; Mean Corpuscular HGB Conc 33.9 g/dL (31.6-35.5); Mean Corpuscular Hemoglobin 31.9 pg (28.0-33.3); Mean Corpuscular Volume 94.1 fL (83.0-100.0); Mean Platelet Volume 10.8 fL (9.4-12.4); Monocytes # 0.5 K/mcL (0.0-1.3); Monocytes % 7.2 %; Neutrophils # 4.1 K/mcL (1.6-8.9); Platelet Count 148 K/mcL (140-400); Red Blood Count 4.76 M/mcL (4.19-5.50); Red Cell Distribution Width 12.6 % (11.5-14.5); Segmented Neutrophils % 55.2 %
[2018-03-19 21:41] LABS: BUN/Creatinine Ratio 19 (6-26); Blood Urea Nitrogen 19 mg/dL (8-23); Calcium 9.2 mg/dL (8.6-10.3); Carbon Dioxide 24 mEq/L (23-29); Chloride 109 mEq/L (98-107); Glucose 107 mg/dL (70-105); INR 1.7; Osmolality,Calculated 291 (280-300); Potassium 4.1 mEq/L (3.5-5.1); Prothrombin Time 19.4 Seconds (9.4-12.1); Sodium 139 mEq/L (136-145); eGFR For Non-African Americans > 60 (> 60)
[2018-03-19 21:44] LABS: Activated Partial Thrombo Time 44.9 Seconds (26.0-36.0)
[2018-03-19 21:55] LABS: Thyroid Stimulating Hormone 1.555 mcIU/mL (0.340-5.600)
--- NOTE | 2018-03-19 22:12 | Emergency Department Note ---
Disposition Clinical Impression: Atrial fibrillation with RVR, Bigeminy Disposition: Admitted As Inpatient Forms: ED Satisfaction Letter General Adult HPI - General Chief complaint: ED Arrhythmia/Palpitations Stated complaint: "Im in A Fib" Time Seen by Provider: 03/19/18 20:26 Source: patient Limitations: no limitations - History of Present Illness Pain Scale: 0 - Related Data Home Medications Medication Instructions Recorded Confirmed Fluticasone Propionate Nasal 50 mcg NS BID PRN 07/16/16 01/30/18 [Flonase] Tamsulosin [Flomax] 0.4 mg PO DAILY 08/01/16 01/30/18 Omeprazole [PriLOSEC] 40 mg PO DAILY PRN 10/25/16 01/30/18 Docusate Sodium [Stool Softener] 100 mg PO BID PRN 07/21/17 01/30/18 Rivaroxaban [Xarelto] 20 mg PO DAILY 07/21/17 01/30/18 Loratadine [Allergy Relief] 10 mg PO DAILY 01/30/18 01/30/18 Montelukast [Singulair] 10 mg PO DAILY 01/30/18 01/30/18 Previous Rx's Medication Instructions Recorded Aspirin 81 mg PO DAILY tab.chew 02/01/18 Sotalol [Betapace] 80 mg PO Q12HR #60 tablet 02/01/18 Allergies Allergy/AdvReac Type Severity Reaction Status Date / Time No Known Allergies Allergy Verified 01/30/18 15:46 Past Medical History - Past Medical History Medical history: Reports: arthritis, atrial fibrillation, GERD, GI bleed, glaucoma, SVT Surgical history: Reports: angioplasty/stent, cholecystectomy Psychiatric history: Reports: no psych history - Social History Smoking Status: Never smoker Smokeless Tobacco Status: No Alcohol use: Reports: none Drug use: Reports: none Physical Exam - General Limitations: no limitations General appearance: alert, in no apparent distress Course Vital Signs Temperature 97.4 F L 03/19/18 20:24 Pulse Rate 163 03/19/18 20:24 Respiratory Rate 16 03/19/18 20:24 Blood Pressure 117/81 03/19/18 20:24 O2 Sat by Pulse Oximetry 98 03/19/18 20:24 Temperature 97.4 F L 03/19/18 20:24 Pulse Rate 163 03/19/18 20:24 Respiratory Rate 16 03/19/18 20:24 Blood Pressure 117/81 03/19/18 20:24 O2 Sat by Pulse Oximetry 98 03/19/18 20:24 Oxygen Delivery Oxygen Delivery Room Air Medical Decision Making - Lab Data Result diagrams: 03/19/18 21:01 03/19/18 21:01 Lab Results 03/19/18 03/19/18 03/19/18 Range/Units 21:01 21:01 21:01 WBC 7.4 (4.3-11.1) K/mcL RBC 4.76 (4.19-5.50) M/mcL Hgb 15.2 (12.9-16.9) g/dL Hct 44.8 (37.5-50.1) % MCV 94.1 (83.0-100.0) fL MCH 31.9 (28.0-33.3) pg MCHC 33.9 (31.6-35.5) g/dL RDW 12.6 (11.5-14.5) % Plt Count 148 (140-400) K/mcL MPV 10.8 (9.4-12.4) fL Immature Gran % 0.3 (0-4) % Seg Neutrophils % 55.2 % Lymphocytes % 35.5 % Monocytes % 7.2 % Eosinophils % 1.5 % Basophils % 0.3 % Neutrophils # 4.1 (1.6-8.9) K/mcL Lymphocytes # 2.6 (0.6-4.6) K/mcL Monocytes # 0.5 (0.0-1.3) K/mcL Eosinophils # 0.1 (0.0-0.6) K/mcL Basophils # 0.0 (0.0-0.2) K/mcL PT 19.4 H (9.4-12.1) Seconds INR 1.7 APTT 44.9 H (26.0-36.0) Seconds Sodium 139 (136-145) mEq/L Potassium 4.1 (3.5-5.1) mEq/L Chloride 109 H (98-107) mEq/L Carbon Dioxide 24 (23-29) mEq/L BUN 19 (8-23) mg/dL Creatinine 1.02 (0.70-1.30) mg/dL Est GFR ( Amer) > 60 (> 60) Est GFR (Non-Af Amer) > 60 (> 60) BUN/Creatinine Ratio 19 (6-26) Glucose 107 H (70-105) mg/dL Calculated Osmolality 291 (280-300) Calcium 9.2 (8.6-10.3) mg/dL Magnesium 2.0 (1.6-2.6) mg/dL TSH 1.555 (0.340-5.600) mcIU/mL Critical Care Time Critical Care Time: No Attestation Statement - Attestation Attestation: I examined this patient and my medical decision-making was reviewed with the Resident Physician. I agree with the documented findings, disposition and treatment plan as described except to the extent set forth below. 67-year-old male presented to the emergency room for problems with atrial fibrillation. Patient has a long history of A. fib. He is on sotalol and Cardizem. His heart rate was 160s at home. He was symptomatic. Upon arrival he was still in the 160s. He was A. fib with RVR. Now his heart rates come down it appears as though he is in and out of the bigeminy. Patient will be adm itted for further workup and cardiology consultation. His lab work is stable. He has no chest pain complaints. No shortness of breath at this time.
--- NOTE | 2018-03-19 23:03 | Internal Med History&Physical ---
<Melinda Browne N - Last Filed: 03/20/18 00:04> Date of Encounter: 03/20/18 Time of Encounter: 23:03 Internal Medicine - H&P: HPI Chief complaint: Atrial fibrillation Admitted From: Emergency Dept History of present illness: Mr. Brandon is a 67 year old male with a history of atrial fibrillation, BPH, arthritis, GI bleed, and GERD. He presented to the ED tonight complaining of palpitations. He has an extensive history of atrial fibrillation, with a history of ablation and implantation of a loop recorder. He states that his manager casino recently changed his home medications from atenolol and flecainide to Cardizem and sotalol. He reports experiencing "flutters" intermittently. He states that he has been experiencing these sensations along with palpitations over the last few days; however, he was unable to get in touch with his manager casino. He also states that his blood pressure has been elevated with systolic in the 140s and diastolic in the 100s; however, he reports is normal pressure to be in the 100s systolic. He denies any shortness of breath, dizziness, or weakness associated with palpitations. He states that while getting ready for bed tonight, he found his heart rate to be elevated at 164. Due to recurrent palpitations over the last few days, he presented to the ED for further workup and management. Initial vital signs obtained in the ED were as follows: Immerge her 97.4, HR 163, RR 16, PP 117/81, and pulse oximetry 98%. Laboratory studies were unremarkable. Cardiology was consult and from the ED, and recommended admission to the hospital overnight with cardiac evaluation to follow tomorrow. Patient was seen and evaluated at the bedside. He denied any acute complaints or concerns. His heart rate is currently controlled in the 70s. Review of systems is significant for recent headache and one episode of emesis yesterday, which he does not think is related to his heart issues. Past Med Surg Social Fam HX - Past Medical History Medical history: arthritis, atrial fibrillation, GERD, GI bleed, glaucoma, SVT Additional medical history: A fib, allergic rhinitis, plantar fascitis Psychiatric history: no psych history - Past Surgical History Surgical History: angioplasty/stent, cholecystectomy Additional surgical history: knee surgery. heart cath,rt foot - Social History Smoking Status: Never smoker Smokeless Tobacco Status: No Alcohol use: none Drug use: none - Family History Mother Living Status: Hx Family Cardiac Disorders: Yes Hx Family Endocrine Disorder: Yes Sister Hx Family Cardiac Disorders: Yes (PACER/AFIB) Father Living Status: Hx Family Cardiac Disorders: Yes Hx Family Cancer: Yes (lung) Internal Medicine - H&P: Meds Fluticasone Propionate Nasal [Flonase] 50 mcg NS BID PRN 07/16/16 [History] Tamsulosin [Flomax] 0.4 mg PO DAILY 08/01/16 [History] Omeprazole [PriLOSEC] 40 mg PO DAILY PRN 10/25/16 [History] Rivaroxaban [Xarelto] 20 mg PO DAILY 07/21/17 [History] Loratadine [Allergy Relief] 10 mg PO DAILY 01/30/18 [History] Montelukast [Singulair] 10 mg PO HS 01/30/18 [History] Sotalol [Betapace] 80 mg PO Q12HR #60 tablet 02/01/18 [Rx] Diltiazem CD (24hr) [Cardizem CD] 120 mg PO DAILY 03/19/18 [History] Allergy/AdvReac Type Severity Reaction Status Date / Time No Known Allergies Allergy Verified 01/30/18 15:46 All Systems PM: A 10-system review of systems was performed and is negative for pertinent findings except as documented above in the HPI. - Constitutional Vitals: Temp Pulse Resp BP Pulse Ox 97.4 F L 163 20 126/82 98 03/19/18 20:24 03/19/18 20:24 03/19/18 23:00 03/19/18 23:00 03/19/18 20:24 Exam: GENERAL: Pleasant adult male in no acute distress. HEENT: Atraumatic and normocephalic. CARDIOVASCULAR: Irregular rate and rhythm. S1 and S2 present. No murmurs, gallops, or rubs appreciated. RESPIRATORY: CTA bilaterally. No accessory muscle use. GASTROINTESTINAL: Active bowel sounds 4 quadrants. Abdomen is soft, nontender, nondistended. EXTREMITIES: No clubbing, cyanosis, or edema. SKIN: Warm, dry, and intact. NEUROLOGIC: Patient is cooperative with exam and answers questions appropriately. No apparent focal deficits. PSYCHIATRIC: Mood and affect appear appropriate. Internal Med - H&P Results - Labs CBC & Chem 7: 03/19/18 21:01 03/19/18 21:01 Labs: Short CBC 03/19/18 Range/Units 21:01 WBC 7.4 (4.3-11.1) K/mcL Hgb 15.2 (12.9-16.9) g/dL Hct 44.8 (37.5-50.1) % Plt Count 148 (140-400) K/mcL Neutrophils # 4.1 (1.6-8.9) K/mcL BMP 03/19/18 21:01 Sodium 139 Potassium 4.1 Chloride 109 H Carbon Dioxide 24 BUN 19 Creatinine 1.02 Glucose 107 H Calcium 9.2 - Impressions ITS Impressions Chest X-Ray 03/19/18 20:43 IMPRESSION: 1. No acute cardiopulmonary disease. D/ / Russ Mendez MD / Russ Mendez MD Interpreting Provider: Russ Mendez MD - Assessment and plan (1) Atrial fibrillation Current Visit: No Status: Acute Assessment and plan: Patient is currently rate controlled. His last echocardiogram was performed on 08/02/2016, which demonstrated normal left ventricular systolic function at 65%. - Telemetry monitoring - Cardiology consult placed by ED provider - Continue home medications pending cardiology evaluation - Repeat echocardiogram - Trend troponins 3 - Repeat electrolyte panel including magnesium, with morning laboratory studies Qualifiers: Atrial fibrillation type: unspecified Qualified Code(s): I48.91 - Unspecified atrial fibrillation (2) Gastroesophageal reflux disease Current Visit: No Status: Chronic Assessment and plan: - Continue home medication of Prilosec Qualifiers: Esophagitis presence: esophagitis presence not specified Qualified Code(s): K21.9 - Gastro-esophageal reflux disease without esophagitis (3) DVT prophylaxis Current Visit: No Status: Acute Assessment and plan: - Continue Xarelto (4) BPH (benign prostatic hyperplasia) Current Visit: No Status: Chronic Assessment and plan: - Continue home medication of Flomax Qualifiers: Lower urinary tract symptom presence: symptoms present Lower urinary tract symptom detail: unspecified Qualified Code(s): N40.1 - Benign prostatic hyperplasia with lower urinary tract symptoms - Time Spent With Patient Total time spent is greater than 50% in coordination of care (as documented) at patient's floor/unit and/or counseling patient: <Elder Sepulveda - Last Filed: 03/20/18 03:36> Date of Encounter: 03/20/18 Time of Encounter: 01:20 - Constitutional Constitutional: no chills, no fever(s) - EENT Eyes: no blurry vision, no change in vision Ears: no ear pain, no tinnitus - Cardiovascular Cardiovascular ROS IM: irregular heart rhythm, palpitations, no chest pain, no dyspnea, no dyspnea on exertion, no lightheadedness, no paroxysmal nocturnal dyspnea, no syncope - Respiratory Respiratory: no cough, no dyspnea, no hemoptysis, no chest congestion, no excessive phlegm production, no change in phlegm color - Gastrointestinal Gastrointestinal: no diarrhea, no hematemesis, no hematochezia, no melena, no vomiting - Genitourinary Genitourinary ROS male: no dysuria, no flank pain, no hematuria - Musculoskeletal Musculoskeletal ROS IM: no arthralgias, no back pain - Integumentary Integumentary IM: no rash, no jaundice - Neurological Neurological ROS: no dizziness, no focal weakness, no frequent falls, no headache(s) - Psychiatric Psychiatric: no anxiety, no depression - Endocrine Endocrine IM: no polydipsia, no polyuria - Constitutional Vitals: Temp Pulse Resp BP Pulse Ox 97.7 F 79 16 108/91 98 03/19/18 23:06 03/19/18 23:06 03/19/18 23:06 03/19/18 23:06 03/19/18 23:06 General appearance: Present: cooperative, A&O X 3, pleasant, no acute distress, answers questions appropriately - Head Head exam: Present: atraumatic, normal inspection - Eye Eye exam: Present: EOMI, PERRL. Absent: scleral icterus Pupils: Present: normal accommodation - ENT ENT exam: Present: normal exam, normal oropharynx - Neck Neck exam general surgery: Present: supple. Absent: thyromegaly - Respiratory Respiratory exam: Present: CTAB. Absent: chest wall tenderness, rales, respiratory distress, rhonchi, wheezes - Cardiovascular Cardiovascular exam: Present: RRR, +S1, +S2. Absent: diastolic murmur, systolic murmur Additional comments: appears to be in NSR on auscultation with ectopic beats noted on occasion - GI/Abdominal GI/Abdominal exam: Present: normal bowel sounds, soft. Absent: guarding, hepatomegaly, mass, rebound, splenomegaly, tenderness - Extremities Exam Extremities exam: Present: warm, radial pulses palpable and symmetrical. Absent: calf tenderness, pedal edema, tenderness - Neurological Exam Neurological exam: Present: alert, oriented X3, no focal deficits - Skin Skin exam: Present: dry, intact, warm Internal Med - H&P Results - Labs CBC & Chem 7: 03/19/18 21:01 03/19/18 21:01 Labs: Short CBC 03/19/18 Range/Units 21:01 WBC 7.4 (4.3-11.1) K/mcL Hgb 15.2 (12.9-16.9) g/dL Hct 44.8 (37.5-50.1) % Plt Count 148 (140-400) K/mcL Neutrophils # 4.1 (1.6-8.9) K/mcL BMP 03/19/18 21:01 Sodium 139 Potassium 4.1 Chloride 109 H Carbon Dioxide 24 BUN 19 Creatinine 1.02 Glucose 107 H Calcium 9.2 Cardiac Enzymes 03/19/18 Range/Units 21:01 Troponin I < 0.03 (< 0.04) ng/mL - Impressions ITS Impressions Chest X-Ray 03/19/18 20:43 IMPRESSION: 1. No acute cardiopulmonary disease. D/ / Russ Mendez MD / Russ Mendez MD Interpreting Provider: Russ Mendez MD - Assessment and plan (1) Gastroesophageal reflux disease Current Visit: No Status: Chronic Qualifiers: Esophagitis presence: esophagitis presence not specified Qualified Code(s): K21.9 - Gastro-esophageal reflux disease without esophagitis (2) DVT prophylaxis Current Visit: No Status: Acute (3) Atrial fibrillation Current Visit: No Status: Acute Qualifiers: Atrial fibrillation type: unspecified Qualified Code(s): I48.91 - Unsp ecified atrial fibrillation (4) BPH (benign prostatic hyperplasia) Current Visit: No Status: Chronic Qualifiers: Lower urinary tract symptom presence: symptoms present Lower urinary tract symptom detail: unspecified Qualified Code(s): N40.1 - Benign prostatic hyperplasia with lower urinary tract symptoms - Time Spent With Patient Total time spent is greater than 50% in coordination of care (as documented) at patient's floor/unit and/or counseling patient: - Attending Attestation I discussed the patient [place], PMH, ROS, lab data, and exam findings with Dr. Browne. I then saw and examined patient independently as well. Patient denies any chest pain and complained only of palpitations and fluttering prior to admission. He has a history of paroxysmal atrial fibrillation and noticed the changes in heart rhythm and palpitations tonight, thus prompting admission. Currently, it appears that he is in normal sinus rhythm with occasional to frequent ectopic beats. His conveyor monitor currently suggests sinus rhythm with PACs and PVCs. Cardiology was consulted from the ER and they recommended admission for medication adjustment. We continued his home medication for now and will await cardiology to further evaluate and adjust medications as needed for rhythm and rate control. We will trend troponins and EKGs and follow cardiology guidance. Other than my comments above and noted physical exam findings, I agree with Dr. Browne's assessment and plan.
[2018-03-20] MEDS ORDERED: Naloxone 0.4 MG/ML INJ IVP PRN (00:16)
[2018-03-20] MEDS ORDERED: Fluticasone Propionate Nasal 50 MCG/SPRAY BOTTLE NS PRN (00:17)
[2018-03-20 00:39] LABS: Troponin I < 0.03 ng/mL (< 0.04)
[2018-03-20 06:08] LABS: Basophils % 0.3 %; Eosinophils # 0.1 K/mcL (0.0-0.6); Eosinophils % 1.5 %; Hemoglobin 14.3 g/dL (12.9-16.9); Immature Granulocytes % 0.2 % (0-4); Lymphocytes # 2.2 K/mcL (0.6-4.6); Lymphocytes % 37.1 %; Mean Corpuscular HGB Conc 34.9 g/dL (31.6-35.5); Mean Corpuscular Hemoglobin 32.9 pg (28.0-33.3); Mean Corpuscular Volume 94.3 fL (83.0-100.0); Mean Platelet Volume 10.7 fL (9.4-12.4); Monocytes # 0.5 K/mcL (0.0-1.3); Monocytes % 8.3 %; Neutrophils # 3.2 K/mcL (1.6-8.9); Platelet Count 130 K/mcL (140-400); Red Blood Count 4.35 M/mcL (4.19-5.50); Red Cell Distribution Width 12.8 % (11.5-14.5); Segmented Neutrophils % 52.6 %
[2018-03-20 06:36] LABS: BUN/Creatinine Ratio 18 (6-26); Blood Urea Nitrogen 18 mg/dL (8-23); Calcium 8.8 mg/dL (8.6-10.3); Carbon Dioxide 25 mEq/L (23-29); Chloride 109 mEq/L (98-107); Glucose 90 mg/dL (70-105); Magnesium 2.1 mg/dL (1.6-2.6); Osmolality,Calculated 291 (280-300); Potassium 4.2 mEq/L (3.5-5.1); Sodium 140 mEq/L (136-145); eGFR For Non-African Americans > 60 (> 60)
[2018-03-20] MEDS ORDERED: Loratadine 10 MG TABLET PO SCH ×2 (09:00→17:00)
[2018-03-20] MEDS ORDERED: *HR* Rivaroxaban 10 MG TABLET PO SCH ×2 (09:00→17:00)
--- NOTE | 2018-03-20 09:41 | Electrocardiograph Report ---
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 Low voltage, precordial leads Electronically Signed On 03-20-2018 9:39:48 EST by Theo Santoyo
--- NOTE | 2018-03-20 10:26 | Cardiology Consult Note ---
<Ayaz Gomes T - Last Filed: 03/20/18 14:54> Date of Encounter: 03/20/18 Time of Encounter: 10:22 Assessment and Plan (1) Atrial fibrillation Current Visit: Yes Status: Acute 67 YO M presenting with chest palpitations with history of Afib on sotolol and cardizem s/p ablation and lop recorder. Patient states he has been feeling chest palpitations for the past few [place] [id number] and elevated BP in 140/100. However, he currently appears to be in sinus rhythm with PACs based on most recent waveform report. - Discontinued cardizem Qualifiers: Atrial fibrillation type: unspecified Qualified Code(s): I48.91 - Unspecified atrial fibrillation (2) CAD (coronary artery disease) Current Visit: No Status: Chronic Qualifiers: Coronary Disease-Associated Artery/Lesion type: [place] artery [place] vs. transplanted heart: [place] heart Associated angina: without angina Qualified Code(s): I25.10 - Atherosclerotic heart disease of [place] coronary artery without angina pectoris Discussion w patient/family: The assessment and plan as outlined above was discussed with the patient and/or family members who expressed understanding and agreement. All questions were answered. Thank you for involving us in the care of your patient. Please call with any questions. History of Present Illness Consult reason: chest paliptations with known Afib Chief complaint: chest palpitations History of present illness: Mr. Brandon is a 67 year old male consulted to cardiology for chest paliptations with known afib seen by Dr. Benjy Jones. He has history of afib on sotolol and cardizem with ablation and loop ercorder. Recently was changed fro atenolol and fecainide. Patient states he has been feeling chest palpitations for the past few days and has noted his BP has bee increased around 140/100. He also notes his heart rate has been highly variable ranging from the low 40s to 110. At ED lat night his vitals were 117/81, HR 163, 98% on room air. HE has had 2 negativ e tropoinins. Currently his waveform show sinus w/ PACs. Patient reports currently denies CP and SOB. Feels chest palpitations currently. Past Med Surg Social Fam HX - Past Medical History Medical history: arthritis, atrial fibrillation, GERD, GI bleed, glaucoma, SVT Additional medical history: A fib, allergic rhinitis, plantar fascitis Psychiatric history: no psych history - Past Surgical History Surgical History: angioplasty/stent, cholecystectomy Additional surgical history: knee surgery. heart cath,rt foot - Social History Smoking Status: Never smoker Smokeless Tobacco Status: No Alcohol use: none Drug use: none - Family History Mother Living Status: Hx Family Cardiac Disorders: Yes Hx Family Endocrine Disorder: Yes Sister Hx Family Cardiac Disorders: Yes (PACER/AFIB) Father Living Status: Cause of : [place] Hx Family Cardiac Disorders: Yes Hx Family Cancer: Yes (lung) Medications and Allergies RX: Fluticasone Propionate Nasal [Flonase] 50 mcg NS BID PRN 07/16/16 [History] RX: Tamsulosin [Flomax] 0.4 mg PO DAILY 08/01/16 [History] RX: Omeprazole [PriLOSEC] 40 mg PO DAILY PRN 10/25/16 [History] RX: Rivaroxaban [Xarelto] 20 mg PO DAILY 07/21/17 [History] RX: Loratadine [Allergy Relief] 10 mg PO DAILY 01/30/18 [History] RX: Montelukast [Singulair] 10 mg PO HS 01/30/18 [History] Diltiazem CD (24hr) [Cardizem CD] 120 mg PO DAILY 03/19/18 [History] RX: Sotalol [Betapace] 40 PO BID 03/20/18 [History] Allergy/AdvReac Type Severity Reaction Status Date / Time No Known Allergies Allergy Verified 01/30/18 15:46 All Systems Review: The remainder of the systems were reviewed and are negative - Constitutional Constitutional: chills, no fever(s), no night sweats - Cardiovascular Cardiovascular: as per HPI - Respiratory Respiratory: no cough, no dyspnea - Gastrointestinal Gastrointestinal: no abdominal pain - Neurological Neurological: syncope, no dizziness Physical Examination Vital Signs, Last 4 Hours Temp Pulse Resp BP Pulse Ox 03/20/18 07:59 98.2 F 74 18 107/65 96 General: Conversant, No Apparent Distress HEENT: Atraumatic, Normocephaly Neck: No JVD, Normal carotid pulses Cardiac: Reg Rate and Rhythm, Normal S1 and S2, No Murmur Lungs: Normal Breath Sounds, No Wheeze, Rales, Rhonchi Neuro: Alert and responsive, No focal deficits noted Abdomen: Soft, Non-Tender Skin: No rashes noted on visualized skin Musculoskeletal: No Chest Wall Tenderness Extremities: No Clubbing, No Cyanosis, No Edema, Normal Pulses Results 03/20/18 05:27 03/20/18 05:27 Lab Results 03/19/18 03/19/18 03/19/18 21:01 21:01 21:01 WBC 7.4 Hgb 15.2 Hct 44.8 Plt Count 148 INR 1.7 APTT 44.9 H Sodium 139 Potassium 4.1 Chloride 109 H Carbon Dioxide 24 BUN 19 Creatinine 1.02 Glucose 107 H Calcium 9.2 Magnesium 2.0 Troponin I < 0.03 TSH 1.555 03/20/18 03/20/18 03/20/18 05:27 05:27 05:27 WBC 6.0 Hgb 14.3 Hct 41.0 Plt Count 130 L INR APTT Sodium 140 Potassium 4.2 Chloride 109 H Carbon Dioxide 25 BUN 18 Creatinine 1.02 Glucose 90 Calcium 8.8 Magnesium 2.1 Troponin I < 0.03 TSH - EKG Interpretation EKG results cardiology: personally reviewed, sinus rhythm, other (Sinus with PACs) Consult Discharge Plan - Plan Referrals: Yasmin Crain MD [Primary Care Provider] - <Theo Santoyo - Last Filed: 03/20/18 16:16> Date of Encounter: 03/20/18 - Attending Attestation Patient was seen and evaluated independently by me. Findings, assessment and plan were discussed at length with patient, questions answered. Agree with nurse practitioner's/resident's documentation. Addition as follows, Consulted for asymptomatic intermittent bradycardia 40s on home monitor for a few days. 67 yoCM ho PAF s/p ablation , loop , mild CAD on 2017 LHC, nl EF and LA size. [id number] started on sotalol 80 bid off cardizem. [id number] sotalol down to 40 bid and back on cardizem CD 120 due to fatigue, palpitations/PVC/PACs on loop New intermittent bradycardia 40s on home monitor for a few days, no dizziness or associated palpitations or cp. No significant change of palpitation frequency, ECG SR, frequent PACs, occ PAT. Tele: S arabella with frequent PACs, occ PVCs; intermitten SR with abrupt change of rate between 30s-70s Loop: SR, S arabella, frequent PACs, PVCs TTE [id number] EF 60%, RV mild dilatation nl fnx, mild MR/TR/PI, no PH. BP stable, IR, no M/G/R, no LE edema Lab reviewed CBC/BMP/trop/TSH wnl A: Intermittent asymptomatic bradycardia, etiology sinus node dysfunction vs PACs/PVCs with EMD PAF, in SR, on xarelto, no bleeding P: c/w sotalol 40mg q12 hold cardizem for now watch tele no PPM indicated now Theo Santoyo MD, PhD Assessment and Plan Discussion w patient/family: The assessment and plan as outlined above was discussed with the patient and/or family members who expressed understanding and agreement. All questions were answered. Thank you for involving us in the care of your patient. Please call with any questions. History of Present Illness History of present illness: Mr. Brandon is a 67 year old male All Systems Review: The remainder of the systems were reviewed and are negative Physical Examination Vital Signs, Last 4 Hours Temp Pulse Resp BP Pulse Ox 03/20/18 12:22 97.4 F L 87 19 117/75 98 Results 03/20/18 05:27 03/20/18 05:27 Lab Results 03/19/18 03/19/18 03/19/18 21:01 21:01 21:01 WBC 7.4 Hgb 15.2 Hct 44.8 Plt Count 148 INR 1.7 APTT 44.9 H Sodium 139 Potassium 4.1 Chloride 109 H Carbon Dioxide 24 BUN 19 Creatinine 1.02 Glucose 107 H Calcium 9.2 Magnesium 2.0 Troponin I < 0.03 TSH 1.555 03/20/18 03/20/18 03/20/18 05:27 05:27 05:27 WBC 6.0 Hgb 14.3 Hct 41.0 Plt Count 130 L INR APTT Sodium 140 Potassium 4.2 Chloride 109 H Carbon Dioxide 25 BUN 18 Creatinine 1.02 Glucose 90 Calcium 8.8 Magnesium 2.1 Troponin I < 0.03 TSH 03/20/18 11:57 WBC Hgb Hct Plt Count INR APTT Sodium Potassium Chloride Carbon Dioxide BUN Creatinine Glucose Calcium Magnesium Troponin I < 0.03 TSH
--- NOTE | 2018-03-20 10:43 | Internal Med Progress Note ---
Hospitalist Progress Note - Encounter Date of Encounter: 03/20/18 Time of Encounter: 10:15 - Subjective Interval History: Pt was seen and assessed at 1015. He is alert, awake, pleasant, is at bedside. Pt denies chest pain, shortness of breath, nausea, diaphoresis, or palpitiations. Cardiology was also seeing pt and he will have echocardiogram this a.m. - Exam Vitals: Temp Pulse Resp BP Pulse Ox 98.2 F 74 18 107/65 96 03/20/18 07:59 03/20/18 07:59 03/20/18 07:59 03/20/18 07:59 03/20/18 07:59 Exam: General: Pt resting quietly on bed, no distress. Skin: pwd, no rashes, lesions, redness Neurological: Pt is alert and awake, oriented x 3, Speech is clear, PERRLA, EOMI, no nystagmus, no pronator drift. strength equal x 4 extremities HEENT: mucous mumbranes moist, no conjuctival pallor Neck: supple, no tracheal deviation, no lymphadenopathy, tenderness, no thyromegaly Heart: S1S2 heard without gallops, clicks, murmurs, no bradycardia or tachycardia, pt has no peripheral edema, pedal and radial pulses palpable bilaterally. Lungs: clear throughout without wheezing, rales, or ronchi, respirations are unlabored Abdomen: soft and non tender with bowel sound present, no hepatomegaly. Psych: Normal affect with good eye contact - Assessment and Plan (1) Gastroesophageal reflux disease Current Visit: Yes Status: Chronic Assessment and Plan: Continue PPI (2) DVT prophylaxis Current Visit: Yes Status: Acute Assessment and Plan: -Pt is on Xarelto (3) Atrial fibrillation Current Visit: Yes Status: Acute Assessment and Plan: Patient is currently rate controlledm rate in the 60s during exam. His last echocardiogram was performed on 08/02/2016, which demonstrated normal left ventricular systolic function at 65%. Repeat echo this a.m. Troponins negative x 2. Magnesium and TSH WNL. - Continue telemtery monitoring - Cardiology following. I appreciate their recommendations. - Continue home medications pending cardiology evaluation - Monitor labs - Continue Xarelto (4) BPH (benign prostatic hyperplasia) Current Visit: Yes Status: Chronic Assessment and Plan: - Continue Flomax DVT Prophylaxis: Xarelto - Time Spent with Patient Total time spent is greater than 50% in coordination of care (as documented) at patient's floor/unit and/or counseling patient: less than 15 minutes Plan of Care Discussed with: family Internal Medicine: Result - Labs CBC & Chem 7: 03/20/18 05:27 03/20/18 05:27 Labs: Short CBC 03/19/18 03/20/18 Range/Units 21:01 05:27 WBC 7.4 6.0 (4.3-11.1) K/mcL Hgb 15.2 14.3 (12.9-16.9) g/dL Hct 44.8 41.0 (37.5-50.1) % Plt Count 148 130 L (140-400) K/mcL Neutrophils # 4.1 3.2 (1.6-8.9) K/mcL BMP 03/19/18 03/20/18 21:01 05:27 Sodium 139 140 Potassium 4.1 4.2 Chloride 109 H 109 H Carbon Dioxide 24 25 BUN 19 18 Creatinine 1.02 1.02 Glucose 107 H 90 Calcium 9.2 8.8 Cardiac Enzymes 03/19/18 03/20/18 Range/Units 21:01 05:27 Troponin I < 0.03 < 0.03 (< 0.04) ng/mL - ABG Interpretation ABG results: PT/INR, D-dimer PT 19.4 Seconds (9.4-12.1) H 03/19/18 21:01 - Impressions Impressions Chest X-Ray 03/19/18 20:43 IMPRESSION: 1. No acute cardiopulmonary disease. D/ / Russ Mendez MD / Russ Mendez MD Interpreting Provider: Russ Mendez MD Consult Discharge Plan - Plan Referrals: Yasmin Crain MD [Primary Care Provider] - (1) Gastroesophageal reflux disease Qualifiers: Esophagitis presence: esophagitis presence not specified Qualified Code(s): K21.9 - Gastro-esophageal reflux disease without esophagitis (3) Atrial fibrillation Qualifiers: Atrial fibrillation type: unspecified Qualified Code(s): I48.91 - Unspecified atrial fibrillation (4) BPH (benign prostatic hyperplasia) Qualifiers: Lower urinary tract symptom presence: symptoms present Lower urinary tract symptom detail: unspecified Qualified Code(s): N40.1 - Benign prostatic hyperplasia with lower urinary tract symptoms
[2018-03-20] MEDS ORDERED: Diltiazem CD (24hr) 120 MG CAPSULE PO SCH (12:00)
--- NOTE | 2018-03-20 12:34 | Electrocardiograph Report ---
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
--- NOTE | 2018-03-20 13:56 | Event Note ---
Date of Encounter: 03/20/18 Time of Encounter: 13:53 - Cardiology Event Note Loop recorder interrogation reviewed with Dr. Benjy Jones. No atrial fibrillation seen on device check since january. Pt triggered events show frequent PAC and PVC. No low HR or AV blocks recorded. Telemetry and EKG reviewed, no 2nd degree block seen. EKG shows SR with frequent PAC.
--- NOTE | 2018-03-20 13:59 | Event Note ---
Date of Encounter: 03/20/18 Time of Encounter: 11:00 - Cardiology Event Note Patient was seen and evaluated independently by me. Findings, assessment and plan were discussed at length with patient, questions answered. Agree with nurse practitioner's/resident's documentation. Addition as follows, Consulted for asymptomatic intermittent bradycardia 40s on home monitor for a few days. 67 yoCM ho PAF s/p ablation , loop , mild CAD on 2016 LHC, nl EF and LA size. [id number] started on sotalol 80 bid off cardizem. [id number] sotalol down to 40 bid and back on cardizem CD 120 due to fatigue, palpitations/PVC/PACs on loop New intermittent bradycardia 40s on home monitor for a few days, no dizziness or associated palpitations or cp. No significant change of palpitation frequency, ECG SR, frequent PACs, occ PAT. Tele: S arabella with frequent PACs, occ PVCs; intermitten SR with abrupt change of rate between 30s-70s Loop: SR, S arabella, frequent PACs, PVCs TTE [id number] EF 60%, RV mild dilatation nl fnx, mild MR/TR/PI, no PH. BP stable, IR, no M/G/R, no LE edema Lab reviewed CBC/BMP/trop/TSH wnl A: Intermittent asymptomatic bradycardia, etiology sinus node dysfunction vs PACs/PVCs with EMD PAF, in SR, on xarelto, no bleeding P: c/w sotalol 40mg q12 hold cardizem for now watch tele no PPM indicated now Theo Santoyo MD, PhD
[2018-03-21 05:32] LABS: Basophils % 0.2 %; Eosinophils # 0.1 K/mcL (0.0-0.6); Eosinophils % 1.5 %; Hematocrit 42.9 % (37.5-50.1); Hemoglobin 14.9 g/dL (12.9-16.9); Immature Granulocytes % 0.4 % (0-4); Lymphocytes # 2.4 K/mcL (0.6-4.6); Lymphocytes % 30.1 %; Mean Corpuscular HGB Conc 34.7 g/dL (31.6-35.5); Mean Corpuscular Hemoglobin 32.6 pg (28.0-33.3); Mean Corpuscular Volume 93.9 fL (83.0-100.0); Mean Platelet Volume 10.8 fL (9.4-12.4); Monocytes # 0.5 K/mcL (0.0-1.3); Monocytes % 6.7 %; Neutrophils # 4.9 K/mcL (1.6-8.9); Platelet Count 135 K/mcL (140-400); Red Blood Count 4.57 M/mcL (4.19-5.50); Red Cell Distribution Width 12.9 % (11.5-14.5); Segmented Neutrophils % 61.1 %
[2018-03-21 05:49] LABS: BUN/Creatinine Ratio 17 (6-26); Blood Urea Nitrogen 17 mg/dL (8-23); Calcium 8.9 mg/dL (8.6-10.3); Carbon Dioxide 23 mEq/L (23-29); Chloride 108 mEq/L (98-107); Glucose 102 mg/dL (70-105); Osmolality,Calculated 288 (280-300); Potassium 4.1 mEq/L (3.5-5.1); Sodium 138 mEq/L (136-145); eGFR For Non-African Americans > 60 (> 60)
[2018-03-21 07:22] VITALS: BP 110/70
--- NOTE | 2018-03-21 09:36 | Cardiology Progress Note ---
Date of Encounter: 03/21/18 Time of Encounter: 09:00 Assessment and Plan (1) Slow pulse Current Visit: Yes Status: Acute Etiology frequent PACs and occasional PVCs with eletromechanical disassociation and sinus node suppression caused by cardizem. -much less slow pulse rate and less palpitations after off cardizem Plan: d/c cardizem c/w sotalol 40 q12 may benefit from sotalol dose adjustment and adding another BB? f/u Dr Benjy Jones in clinic (2) Sinus bradycardia Current Visit: Yes Status: Acute less frequent off cardizem (3) PAC (premature atrial contraction) Current Visit: Yes Status: Acute frequent on cardizem, much improved off cardizem. Also triggered by activity. May benefit from adding another BB? (4) PVC (premature ventricular contraction) Current Visit: Yes Status: Acute (5) PAF (paroxysmal atrial fibrillation) Current Visit: No Status: Chronic No Afib on loop interogation since c/w megan Discussion w patient/family: The assessment and plan as outlined above was discussed with the patient and/or family members who expressed understanding and agreement. All questions were answered. Thank you for involving us in the care of your patient. Please call with any questions. Subjective Principal diagnosis: slow pulse, arrhytmia Interval history: Pt feels better with less palpitations after holding cardizem. Tele review: no more sinus arabella to 30s, less frequent PACs and PVCs. Bedside NSR at rest, more PACs and PVCs on tele without generating pulses after leg lifting exercise, no palpitations with leg exercise. Objective Vital Signs, Last 4 Hours Temp Pulse Resp BP Pulse Ox 03/21/18 07:22 98.2 F 66 16 110/70 96 Other: General: NAD, AAO, cogent HEENT: anicteric Neck: no JVD, no bruits Chest: CTA B/L, no W/R/C Heart: IR, occ PACs and rare PVCs, S1/S2, no S3/S4, no M/G/R Abdominal: BS +, soft, ND, NT Peripheral Pulses: radial pulse 2+ B/L, DP 2+ B/L Skin/Extremities: no cyanosis, no LE edema Neurological: grossly non-focal. Results 03/21/18 04:47 03/21/18 04:47 Lab Results 03/20/18 03/21/18 03/21/18 11:57 04:47 04:47 WBC 8.0 Hgb 14.9 Hct 42.9 Plt Count 135 L Sodium 138 Potassium 4.1 Chloride 108 H Carbon Dioxide 23 BUN 17 Creatinine 1.03 Glucose 102 Calcium 8.9 Troponin I < 0.03 - Imaging and Cardiology Echo: report reviewed Other Results: tele reviewed - EKG Interpretation EKG results cardiology: personally reviewed Consult Discharge Plan - Plan Referrals: Yasmin Crain MD [Primary Care Provider] -
--- NOTE | 2018-03-21 12:55 | Discharge Summary ---
Date of Encounter: 03/21/18 Time of Encounter: 12:53 - Discharge Diagnosis (1) Atrial fibrillation Priority: Primary Status: Acute Qualifiers: Atrial fibrillation type: unspecified Qualified Code(s): I48.91 - Unspecified atrial fibrillation (2) Gastroesophageal reflux disease Priority: Secondary Status: Chronic Qualifiers: Esophagitis presence: esophagitis presence not specified Qualified Code(s): K21.9 - Gastro-esophageal reflux disease without esophagitis (3) BPH (benign prostatic hyperplasia) Priority: Secondary Status: Chronic Qualifiers: Lower urinary tract symptom presence: symptoms present Lower urinary tract symptom detail: unspecified Qualified Code(s): N40.1 - Benign prostatic hyperplasia with lower urinary tract symptoms (4) PAC (premature atrial contraction) Priority: Primary Status: Acute (5) PVC (premature ventricular contraction) Priority: Primary Status: Acute (6) Sinus bradycardia Priority: Primary Status: Acute Hospital course: Mr. Brandon is a 67 year old male with a history of atrial fibrillation, BPH, arthritis, GI bleed, and GERD. He presented to [facility] on 03/20/2018 with complaints of palpitations. He was placed in observation status for further workup and treatment. He has an extensive history of atrial fibr illation, with a history of ablation and implantation of a loop recorder. 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 Patient's home monitor was reviewed while he was hospitalized which showed intermittent bradycardia with heart rates in the 40s. EKG showed sinus rhythm with frequent PACs and occasional PAT. Loop recorder showed sinus rhythm with sinus bradycardia and PACs and PVCs as well as. He was evaluated by cardiology who suspected bradycardia was secondary to frequent PACs and PVCs with electromechanical disassociation and sinus node suppression which could be caused by diltiazem. Home diltiazem stopped with improvement in heart rate. Cardiology also noted that patient may benefit from sotalol dose adjustment and adding another BB however this will be deferred to patient's primary outpatient pens and pencils dipper. Patient denied chest pain, no shortness of breath or palpitations at time discharge. Discharge home in stable condition on 03/21/2018 with outpatient follow-up. - Time Spent with Patient Total time spent providing and/or coordinating discharge services: - Discharge Medications Home Medications: Fluticasone Propionate Nasal [Flonase] 50 mcg NS BID PRN 07/16/16 [History] Tamsulosin [Flomax] 0.4 mg PO DAILY 08/01/16 [History] Omeprazole [PriLOSEC] 40 mg PO DAILY PRN 10/25/16 [History] Rivaroxaban [Xarelto] 20 mg PO DAILY 07/21/17 [History] Loratadine [Allergy Relief] 10 mg PO DAILY 01/30/18 [History] Montelukast [Singulair] 10 mg PO HS 01/30/18 [History] Sotalol [Betapace] 40 PO BID 03/20/18 [History] Allergies/Adverse Reactions: Allergy/AdvReac Type Severity Reaction Status Date / Time No Known Allergies Allergy Verified 01/30/18 15:46 Date of admission: 03/19/18 22:20 Primary care physician: Yasmin Crain MD Consults: 03/19/18 21:44 Consult to Cardiology [CONS] Stat Comment: Consulting Provider: Cardiology Mlidred Reason for Consult: AFib, on sotalol and cardizem Time Notified: 21:45 Call Completed: Yes Discharging clinician: Sandra Gilliam Anticipated date of discharge: 03/21/18 - Constitutional Vitals: Temp Pulse Resp BP Pulse Ox 98.2 F 66 16 110/70 96 03/21/18 07:22 03/21/18 07:22 03/21/18 07:22 03/21/18 07:22 03/21/18 07:22 General appearance: Present: cooperative, A&O X 3, pleasant, no acute distress, answers questions appropriately Exam: . - Head Head exam: Present: atraumatic, normocephalic - Eye Eye exam: Present: PERRL, conjuntiva pink, sclera anicteric Pupils: Present: PERRL - Neck Neck exam general surgery: Present: supple, trachea midline. Absent: lymphadenopathy - Respiratory Respiratory exam: Present: CTAB. Absent: accessory muscle use, rales, rhonchi, wheezes - Cardiovascular Cardiovascular exam: Present: RRR, +S1, +S2. Absent: diastolic murmur, gallop, rubs, systolic murmur - GI/Abdominal GI/Abdominal exam: Present: normal bowel sounds, soft, no peritoneal signs. Absent: distended, tenderness - Extremities Exam Extremities exam: Present: warm, radial pulses palpable and symmetrical. Absent: calf tenderness, cyanotic, pedal edema - Neurological Exam Neurological exam: Present: CN II-XII intact, oriented X3, no focal deficits. Absent: pronater drift, facial droop, speech deficit - Skin Skin exam: Present: dry, intact - Patient Status Disposition: Home, Self-Care Condition: Good Functional capacity at discharge: independent ambulation Overall status at discharge: patient is back to baseline - Discharge Instructions Instructions: Atrial Fibrillation (DC) Follow Up With: Yasmin Crain MD [Primary Care Provider] - (call for follow-up appt within one week ) Benjy Jones MD [Partnered Physician] - (call for follow-up appt within one week ) - Diet and Activity Activity: increase activity as tolerated Diet: advance to your usual diet
== END 2018-03-21 13:15 | disposition home or self-care (01) ==
LOC: 2NENU 20:21 → EMEROOARM 20:21 → 2NENU 22:52
PROVIDERS: ADMIT Pediatrics; ATTEND Pediatrics

== ENCOUNTER 2018-09-08 10:39 | Observation (INO) ==
[2018-09-08 12:23] LABS: Basophils % 0.4 %; Eosinophils # 0.1 K/mcL (0.0-0.6); Eosinophils % 2.5 %; Hemoglobin 14.8 g/dL (12.9-16.9); Immature Granulocytes % 0.4 % (0-4); Lymphocytes # 1.7 K/mcL (0.6-4.6); Lymphocytes % 32.2 %; Mean Corpuscular HGB Conc 34.4 g/dL (31.6-35.5); Mean Corpuscular Hemoglobin 33.3 pg (28.0-33.3); Mean Corpuscular Volume 96.8 fL (83.0-100.0); Mean Platelet Volume 11.3 fL (9.4-12.4); Monocytes # 0.5 K/mcL (0.0-1.3); Monocytes % 9.1 %; Neutrophils # 2.9 K/mcL (1.6-8.9); Platelet Count 144 K/mcL (140-400); Red Blood Count 4.44 M/mcL (4.19-5.50); Red Cell Distribution Width 12.6 % (11.5-14.5); Segmented Neutrophils % 55.4 %
[2018-09-08 12:34] LABS: INR 1.3; Prothrombin Time 14.1 Seconds (9.4-12.1)
[2018-09-08] MEDS ORDERED: Fluticasone Propionate Nasal 50 MCG/SPRAY BOTTLE NS PRN (12:35)
[2018-09-08 12:40] LABS: BUN/Creatinine Ratio 15 (6-26); Blood Urea Nitrogen 14 mg/dL (8-23); Calcium 9.4 mg/dL (8.6-10.3); Carbon Dioxide 25 mEq/L (23-29); Chloride 108 mEq/L (98-107); Glucose 107 mg/dL (70-105); Osmolality,Calculated 291 (280-300); Potassium 4.3 mEq/L (3.5-5.1); Sodium 140 mEq/L (136-145); eGFR For Non-African Americans > 60 (> 60)
--- NOTE | 2018-09-08 12:50 | History & Physical Report ---
Date of Encounter: 09/08/18 Time of Encounter: 12:43 24 Hour HP Update - Instructions Instructions: If the History and Physical is less than 30 days old and was completed prior to A.M. admission and or procedure and has NOT been updated on calendar day of procedure please complete this update prior to performing procedure. - Update Patient reports changes in Medical Condition: No Changes in examination, assessment, or condition: No Changes in Medication: No Preop tests/diagnostics Reviewed: Yes - Attending Attestation Please refer to eCW encounter 08/14/[address] Benjy Jones as H&P. PMH includes atrial fibrillation/flutter with hx of ablation, PVC's, PAC's, CAD and HTN. He was on Sotalol 40mg BID at home, 80mg previously stopped d/t fatigue. Has had recurrence of PAF. Now being admitted for Sotalol increase to 80mg BID. Of note, Tikosyn was delatorre checked, but not affordable and pt has previously failed Flecainide. Anticoagulated on Xarelto with no missed doses the past 30 days. Baseline labs stable. Baseline ECG 09/08/18 SR with PACS, QT/QTc 372/397ms. Will need monitored x 5 doses. Will discuss and review with Dr. Benjy Jones.
--- NOTE | 2018-09-08 15:49 | Electrocardiograph Report ---
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
[2018-09-08] MEDS: *HR* Rivaroxaban 10 MG TABLET PO SCH (17:41)
[2018-09-08] MEDS: Loratadine 10 MG TABLET PO SCH (20:53)
[2018-09-09] MEDS ORDERED: *HR* Rivaroxaban 10 MG TABLET PO SCH (09:00)
--- NOTE | 2018-09-09 11:13 | Electrophysiology ProgressNote ---
Date of Encounter: 09/09/18 Time of Encounter: 11:10 Assessment and Plan (1) PAF (paroxysmal atrial fibrillation) Current Visit: Yes Status: Acute Hx atrial fibrillation/flutter with hx of ablation. He was on Sotalol 40mg BID at home, 80mg previously stopped d/t fatigue. Has had recurrence of PAF. Now admitted for Sotalol increase to 80mg BID. Of note, Tikosyn was delatorre checked, but not affordable and pt has previously failed Flecainide. Anticoagulated on Xarelto with no missed doses the past 30 days. Baseline labs stable. Baseline ECG 09/08/18 SR with PACS, QT/QTc 372/397ms. ECG 09/09/18 SR with PACs, QT/QTc 401/425ms. Will need monitored x 5 doses. Will discuss and review with Dr. Benjy Jones. Tentative d/c home tomorrow after 5th dose. Discussion w patient/family: The assessment and plan as outlined above was discussed with the patient and/or family members who expressed understanding and agreement. All questions were answered. Thank you for involving us in the care of your patient. Please call with any questions. I will discuss all the above with Dr. Benjy Jones and make changes as necessary. Subjective Principal diagnosis: PAF Interval history: No acute complaints this AM. Objective Vital Signs Temp Pulse Resp BP Pulse Ox 09/09/18 06:46 98.0 F 95 17 101/70 95 09/09/18 04:21 97.9 F 56 16 109/68 93 09/08/18 23:33 98.2 F 62 14 114/71 95 09/08/18 18:22 98.5 F 67 16 107/70 94 09/08/18 16:48 98.4 F 62 18 104/67 96 09/08/18 11:14 98.3 F 50 15 100/62 95 Intake and Output 09/08/18 09/09/18 09/09/18 23:59 07:59 15:59 Other: # Voids 3 Weight 100.9 kg Patient Weight 09/09/18 23:59 Weight 100.9 kg General: Conversant, No Apparent Distress HEENT: Atraumatic, Normocephaly, Mucus Membranes Moist Neck: No JVD, Normal carotid pulses Cardiac: Reg Rate and Rhythm, Normal S1 and S2, No Murmur Lungs: Normal Breath Sounds, No Wheeze, Rales, Rhonchi Neuro: Alert and responsive, No focal deficits noted Abdomen: Soft, Non-Tender Skin: No rashes noted on visualized skin Musculoskeletal: No Chest Wall Tenderness Extremities: No Clubbing, No Cyanosis, No Edema, Normal Pulses Results 09/08/18 11:40 09/08/18 11:40 Lab Results 09/08/18 09/08/18 09/08/18 11:40 11:40 11:40 WBC 5.3 Hgb 14.8 Hct 43.0 Plt Count 144 INR 1.3 Sodium 140 Potassium 4.3 Chloride 108 H Carbon Dioxide 25 BUN 14 Creatinine 0.94 Glucose 107 H Calcium 9.4 Short CBC 09/08/18 Range/Units 11:40 WBC 5.3 (4.3-11.1) K/mcL Hgb 14.8 (12.9-16.9) g/dL Hct 43.0 (37.5-50.1) % Plt Count 144 (140-400) K/mcL Neutrophils # 2.9 (1.6-8.9) K/mcL BMP 09/08/18 Range/Units 11:40 Sodium 140 (136-145) mEq/L Potassium 4.3 (3.5-5.1) mEq/L Chloride 108 H (98-107) mEq/L Carbon Dioxide 25 (23-29) mEq/L BUN 14 (8-23) mg/dL Creatinine 0.94 (0.70-1.30) mg/dL Glucose 107 H (70-105) mg/dL Calcium 9.4 (8.6-10.3) mg/dL Active Medications Fluticasone Propionate (Flonase) 50 mcg NS BID PRN; Protocol PRN Reason: Allergy Symptoms Stop: 03/10/19 12:36 Loratadine (Claritin) 10 mg PO DAILY@2100 YANE; Protocol Stop: 03/10/19 21:01 Last Admin: 09/08/18 20:53 Dose: 10 mg Documented by: Montelukast Sodium (Singulair) 10 mg PO HS YANE Stop: 03/10/19 21:01 Last Admin: 09/08/18 20:53 Dose: 10 mg Documented by: Omeprazole (Prilosec) 40 mg PO 0730 PRN PRN Reason: Indigestion Stop: 03/10/19 12:36 Rivaroxaban (Xarelto) 20 mg PO 1700 YANE Stop: 03/10/19 17:01 Last Admin: 09/08/18 17:41 Dose: 20 mg Documented by: Sotalol HCl (Betapace) 80 mg PO Q12H YANE Stop: 03/11/19 12:01 Tamsulosin HCl (Flomax) 0.4 mg PO DAILY@2100 YANE; Protocol Stop: 03/10/19 21:01 Last Admin: 09/08/18 20:52 Dose: 0.4 mg Documented by: - EKG Interpretation EKG results cardiology: other (12 hr tele AVG HR 75, SR with PACs and PVCs.) Consult Discharge Plan - Plan Referrals: Yasmin Crain MD [Primary Care Provider] -
[2018-09-09] MEDS: *HR* Rivaroxaban 10 MG TABLET PO SCH (16:48)
[2018-09-09] MEDS: Loratadine 10 MG TABLET PO SCH (19:52)
[2018-09-10 06:59] VITALS: BP 108/72
--- NOTE | 2018-09-10 10:07 | Discharge Summary ---
Orders not resulted at time of discharge: Pending orders 09/10/18 10:00 EKG [ECG 12 lead ECG] [ECG] Stat 09/11/18 06:00 EKG [ECG 12 lead ECG] [ECG] AM 0600 Date of Encounter: 09/10/18 Time of Encounter: 10:05 - Discharge Diagnosis (1) PAF (paroxysmal atrial fibrillation) Priority: Primary Status: Acute - Hospital Course Hospital course: Mr. Brandon is a 67 year old male with Hx atrial fibrillation/flutter with hx of ablation. He was on Sotalol 40mg BID at home, 80mg previously stopped d/t fatigue. Has had recurrence of PAF. Now admitted for Sotalol increase to 80mg BID. Of note, Tikosyn was delatorre checked, but not affordable and pt has previously failed Flecainide. Anticoagulated on Xarelto with no missed doses the past 30 days. Baseline labs stable. QTc has remained stable. S/P 5 doses QT/QTc 376/403ms. D/C home in stable condition. Will coordinate outpt follow-up in 2-3 weeks. - Time Spent with Patient Total time spent providing and/or coordinating discharge services: Less than 30 minutes - Discharge Medications Prescriptions: Continued Tamsulosin [Flomax] 0.4 mg PO DAILY Omeprazole [PriLOSEC] 40 mg PO DAILY PRN PRN Reason: Indigestion Rivaroxaban [Xarelto] 20 mg PO DAILY Montelukast [Singulair] 10 mg PO QPM Loratadine [Allergy Relief] 10 mg PO DAILY Sotalol [Betapace] 80 mg PO BID #60 tablet Fluticasone Propionate Nasal [Flonase] 2 spray NS DAILY PRN PRN Reason: Allergy Symptoms Home Medications: Fluticasone Propionate Nasal [Flonase] 2 spray NS DAILY PRN 07/16/16 [History] Tamsulosin [Flomax] 0.4 mg PO DAILY 08/01/16 [History] Omeprazole [PriLOSEC] 40 mg PO DAILY PRN 10/25/16 [History] Rivaroxaban [Xarelto] 20 mg PO DAILY 07/21/17 [History] Loratadine [Allergy Relief] 10 mg PO DAILY 01/30/18 [History] Montelukast [Singulair] 10 mg PO QPM 09/28/18 [History] Sotalol [Betapace] 80 mg PO BID #60 tablet 09/10/18 [Rx] Allergies/Adverse Reactions: Allergy/AdvReac Type Severity Reaction Status Date / Time No Known Allergies Allergy Verified 09/09/18 10:20 Date of admission: 09/08/18 10:39 Primary care physician: Yasmin Crain MD Discharging clinician: Suhail De La Garza Anticipated date of discharge: 09/10/18 Physical Examination Vital Signs, Last 4 Hours Temp Pulse Resp BP Pulse Ox 09/10/18 06:50 98.0 F 67 16 108/72 96 Vital Signs Temp Pulse Resp BP Pulse Ox 09/10/18 06:50 98.0 F 67 16 108/72 96 09/10/18 04:00 97.9 F 62 16 100/67 94 09/09/18 23:27 98.1 F 59 16 102/62 96 09/09/18 19:01 97.6 F 52 17 101/56 96 09/09/18 16:02 97.9 F 75 17 105/64 96 09/09/18 11:09 98.2 F 78 16 111/74 94 Intake and Output 09/09/18 09/10/18 09/10/18 23:59 07:59 15:59 Intake Total 880 / 1360 240 / 240 Balance 880 / 1360 240 / 240 Intake: Oral 880 / 1360 240 / 240 Other: Meal Dinner Breakfast Percent of Meal Consumed 100% 100% # Voids 1 Weight 102.1 kg Patient Weight 09/10/18 23:59 Weight 102.1 kg General: Conversant, No Apparent Distress HEENT: Atraumatic, Normocephaly, Mucus Membranes Moist Neck: No JVD, Normal carotid pulses Cardiac: Reg Rate and Rhythm, Normal S1 and S2, No Murmur Lungs: Normal Breath Sounds, No Wheeze, Rales, Rhonchi Neuro: Alert and responsive, No focal deficits noted Abdomen: Soft, Non-Tender Skin: No rashes noted on visualized skin Musculoskeletal: No Chest Wall Tenderness Extremities: No Clubbing, No Cyanosis, No Edema, Normal Pulses - Patient Status Disposition: Home, Self-Care Condition: Good Functional capacity at discharge: independent ambulation Overall status at discharge: patient is back to baseline - Discharge Instructions Follow Up With: Yasmin Crain MD [Primary Care Provider] - - Diet and Activity Activity: increase activity as tolerated Diet: advance to your usual diet
--- NOTE | 2018-09-10 11:28 | Electrocardiograph Report ---
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
--- NOTE | 2018-09-10 11:46 | Electrocardiograph Report ---
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
--- NOTE | 2018-09-10 16:38 | Electrocardiograph Report ---
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
== END 2018-09-10 12:10 | disposition home or self-care (01) ==
LOC: INTOOBSV 10:39 → 3BNU 10:39
PROVIDERS: ADMIT Internal Medicine Clinical Cardiac Electrophysiology; ATTEND Internal Medicine Clinical Cardiac Electrophysiology